=== PATIENT | male | born 1930 | race Caucasian/White ===

== ENCOUNTER → 2016-07-31 | Outpatient (CLI) | payer MEDICARE, BC | END | disposition home or self-care (01) | LOC: MW.CHUR 09:46 | PROVIDERS: ATTEND Urology | DX: R35.1 Nocturia (principal); Z85.46 Personal history of malignant neoplasm of prostate | CPT/HCPCS: 36415; 84153; G0463 ==

== ENCOUNTER 2017-12-08 06:43 | Day surgery (SDC) | payer MEDICARE, BC ==
[~2017-12-08 06:43] MED LIST: Lactated Ringers 1,000 ML IV SCH; Sodium Chloride 0.9% 10 ML Syringe FLUSH PRN; Sodium Chloride 0.9% 2.5 ML Syringe FLUSH PRN; ceFAZolin 1 GM in Premix Bag 1 BAG IV ONE
[2017-12-08] MEDS ORDERED: fentaNYL 100 MCG/2 ML SDV ONE (07:28)
[2017-12-08] MEDS ORDERED: Propofol 200 MG/20 ML SDV ONE (07:28)
[2017-12-08] MEDS ORDERED: Midazolam 1 MG/ML 2 ML SDV ONE (07:29)
[2017-12-08] MEDS ORDERED: Lidocaine 2% 5 ML SDV ONE (07:32)
[2017-12-08] MEDS ORDERED: Succinylcholine 200 MG/10 ML MDV ONE (07:32)
[2017-12-08] MEDS ORDERED: ePHEDrine 50 MG/ML SDV ONE (07:32)
--- NOTE | 2017-12-08 07:53 | PCM.PREANE ---
Preanesthetic Assessment - Procedure Proposed Procedure: TURBT - Anesthesia/Transfusion/Family Hx Anesthesia History: Prior Anesthesia Without Reaction Family History of Anesthesia Reaction: No Transfusion History: No Prior Transfusion(s) Intubation History: Unknown Additional History: Off plavix for one week - Review of Systems General: No Symptoms Pulmonary: No Symptoms Cardiovascular: No Symptoms Gastrointestinal: No Symptoms Neurological: Other (hx of stroke in past; still on anticoagulant) - Physical Assessment NPO Status Date: 12/07/17 NPO Status Time: 21:00 O2 Sat by Pulse Oximetry: 98 Respiratory Rate: 16 Vital Signs: Last Vital Signs Temp 97.3 F 12/08/17 07:22 Pulse 49 L 12/08/17 07:22 Resp 16 12/08/17 07:22 BP 139/73 12/08/17 07:22 Pulse Ox 98 12/08/17 07:22 Height: 6 ft Weight: 184 lb ASA Class: 3 Mental Status: Alert & Oriented x3 Airway Class: Mallampati = 3 Dentition: Reports: Normal Dentition Thyro-Mental Finger Breadths: 2 Mouth Opening Finger Breadths: 3 ROM/Head Extension: Limited/Partial Lungs: Clear to Auscultation, Normal Respiratory Effort Cardiovascular: Regular Rate, Regular Rhythm, No Murmurs - Allergies Allergies/Adverse Reactions: Allergies Allergy/AdvReac Type Severity Reaction Status Date / Time No Known Allergies Allergy Verified 12/03/17 10:02 - Blood Blood Available: No Product(s) Available: None - Anesthesia Plan Pre-Op Medication Ordered: None - Acknowledgements Anesthesia Type Planned: General Anesthesia (LMA) Pt an Appropriate Candidate for the Planned Anesthesia: Yes Alternatives and Risks of Anesthesia Discussed w Pt/Guardian: Yes Pt/Guardian Understands and Agrees with Anesthesia Plan: Yes Additional Comments: family at bedside; agreed to planned procedure and probable future surgical interventions PreAnesthesia Questionnaire HEENT History: Reports: Cataract, Hard of Hearing Other HEENT History: wears glasses, has bilateral hearing aides Cardiovascular History: Reports: High Cholesterol Genitourinary History: Reports: Prostate Disorder Neurological History: Reports: CVA Other Neuro History: stroke in 2002- still taking plavix Endocrine/Metabolic History: Reports: Hypothyroidism Hematologic History: Reports: Anticoagulation Therapy Oncologic (Cancer) History: Reports: Prostate Dermatologic History: Reports: Other (See Below) Other Dermatologic History: hx of shingles- still has pain down his arm- takes Gabapentin - Past Surgical History HEENT Surgical History: Reports: Cataract Surgery Male Surgical History: Reports: Prostatectomy, Other (See Below) Other Male Surgeries/Procedures: implanted artificial urinary sphincter Other Oncologic Surgeries/Procedures: Prostatectomy - SUBSTANCE USE Smoking Status *Q: Never Smoker Recreational Drug Use History: No - HOME MEDS Home Medications: Home Meds Clopidogrel [Plavix] 75 mg PO DAILY 10/29/17 [History] Levothyroxine Sodium [Levo-T] 50 mcg PO DAILY 10/29/17 [History] Oxybutynin Chloride 5 mg PO DAILY 10/29/17 [History] Simvastatin [Zocor] 40 mg PO DAILY 10/29/17 [History] Gabapentin [Neurontin] 600 mg PO QID 12/03/17 [History] - CURRENT (IN HOUSE) MEDS Current Meds: Current Medications Lactated Ringer's (Ringers, Lactated) 1,000 mls @ 100 mls/hr IV ASDIRECTED DAVID Last Admin: 12/08/17 07:10 Dose: 100 mls/hr Sodium Chloride (Saline Flush) 10 ml FLUSH ASDIRECTED PRN PRN Reason: Keep Vein Open Sodium Chloride (Saline Flush) 2.5 ml FLUSH ASDIRECTED PRN PRN Reason: Keep Vein Open Discontinued Medications Ephedrine Sulfate (Ephedrine Sulfate) Confirm Administered Dose 50 mg .ROUTE .STK-MED ONE Stop: 12/08/17 07:33 Fentanyl (Sublimaze) Confirm Administered Dose 100 mcg .ROUTE .STK-MED ONE Stop: 12/08/17 07:29 Cefazolin Sodium/Dextrose 1 gm (/ Premix) 50 mls @ 100 mls/hr IV ONCALL ONE Stop: 12/08/17 00:30 Lidocaine (Xylocaine-Mpf 2%) Confirm Administered Dose 5 ml .ROUTE .STK-MED ONE Stop: 12/08/17 07:33 Midazolam HCl (Versed 1 Mg/Ml) Confirm Administered Dose 2 mg .ROUTE .STK-MED ONE Stop: 12/08/17 07:30 Propofol (Diprivan 20 Ml) Confirm Administered Dose 200 mg .ROUTE .STK-MED ONE Stop: 12/08/17 07:29 Succinylcholine Chloride (Quelicin) Confirm Administered Dose 200 mg .ROUTE .STK -MED ONE Stop: 12/08/17 07:33
[2017-12-08] MEDS ORDERED: Glycopyrrolate 0.2 MG/ML SDV ONE (10:01)
--- NOTE | 2017-12-08 11:01 | PCM.POSTAN ---
POST ANESTHESIA ASSESSMENT - MENTAL STATUS Mental Status: Alert, Oriented - RESPIRATORY Respiratory Status: Respiratory Rate WNL - CARDIOVASCULAR CV Status: Pulse Rate WNL, Blood Pressure Stable - GASTROINTESTINAL GI Status: No Symptoms - PAIN Pain Score: 0 - POST OP HYDRATION Hydration Status: Adequate & Stable - OBSERVATIONS Free Text/Narrative:: no anesthesia problems
--- NOTE | 2017-12-08 11:52 | OR ---
SURGEON: Halle Kaur M.D. DATE OF PROCEDURE: 12/08/2017 PREOPERATIVE DIAGNOSIS: Multiple papillary bladder tumors, large, right wall and posterior wall. POSTOPERATIVE DIAGNOSIS: Multiple papillary bladder tumors, large, right wall and posterior wall. OPERATION: TURBT. DESCRIPTION OF THE PROCEDURE: The patient was given general anesthesia. He was in the dorsal lithotomy position, prepped and draped in sterile drapes. The artificial urinary sphincter was opened. The urethra was dilated using 20, all the way to 28- Salvadorean with [place] sounds. The 26 resectoscope was then placed in, the tumors were either resected or fulgurated. The specimen was submitted. The base of the tumor was biopsied separately with cold cup biopsy forceps. A 16-Salvadorean Joshi catheter was placed at the end. Estimated blood loss is minimal, under 50 mL. The patient tolerated the procedure well and was moved to recovery room in good condition. BELINDA / SADIE /[id number]
== END 2017-12-08 13:40 | disposition home or self-care (01) ==
LOC: MW.SDS 06:43
PROVIDERS: ATTEND Urology
DX: C67.4 Malignant neoplasm of posterior wall of bladder (principal); Z79.899 Other long term (current) drug therapy
CPT/HCPCS: 52240; 88305; 88307; 88331; J0330; J2250; J3010; J7120; J2704

== ENCOUNTER 2018-10-05 07:38 | Day surgery (SDC) | payer MEDICARE, BC ==
[~2018-10-05 07:38] MED LIST changes: +Sodium Chloride 0.9% 10 ML SDV IV PRN; -ceFAZolin 1 GM in Premix Bag 1 BAG IV ONE
--- NOTE | 2018-10-05 08:22 | PCM.PREANE ---
Preanesthetic Assessment - Anesthesia/Transfusion/Family Hx Anesthesia History: Prior Anesthesia Without Reaction Family History of Anesthesia Reaction: No Transfusion History: No Prior Transfusion(s) Intubation History: Unknown - Review of Systems General: No Symptoms Pulmonary: No Symptoms Cardiovascular: No Symptoms Gastrointestinal: No Symptoms Neurological: No Symptoms Other: Reports: None - Physical Assessment NPO Status Date: 10/04/18 NPO Status Time: 21:00 O2 Sat by Pulse Oximetry: 96 Respiratory Rate: 16 Vital Signs: Last Vital Signs Temp 97.2 F 10/05/18 08:02 Pulse 52 L 10/05/18 08:02 Resp 16 10/05/18 08:02 BP 128/70 10/05/18 08:02 Pulse Ox 96 10/05/18 08:02 Height: 6 ft Weight: 80.739 kg ASA Class: 3 Mental Status: Alert & Oriented x3 Airway Class: Mallampati = 2 Dentition: Reports: Missing Tooth/Teeth Thyro-Mental Finger Breadths: 2 ROM/Head Extension: Limited/Partial Lungs: Clear to Auscultation, Normal Respiratory Effort Cardiovascular: Regular Rate, Regular Rhythm (Distant sounds) - Allergies Allergies/Adverse Reactions: Allergies Allergy/AdvReac Type Severity Reaction Status Date / Time No Known Allergies Allergy Verified 10/01/18 13:45 - Acknowledgements Anesthesia Type Planned: General Anesthesia (Light) Pt an Appropriate Candidate for the Planned Anesthesia: Yes Alternatives and Risks of Anesthesia Discussed w Pt/Guardian: Yes Pt/Guardian Understands and Agrees with Anesthesia Plan: Yes PreAnesthesia Questionnaire HEENT History: Reports: Hard of Hearing Other HEENT History: wears glasses, has bilateral hearing aides Cardiovascular History: Reports: High Cholesterol, Other (See Below) Other Cardiovascular History: hx of bradycardia, states blood pressure runs low Respiratory History: Reports: None Gastrointestinal History: Reports: None Genitourinary History: Reports: Prostate Disorder, Urinary Incontinence Musculoskeletal History: Reports: None Neurological History: 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, mild residual memory issues), Neuropathy, 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 Endocrine/Metabolic History: Reports: Hypothyroidism Hematologic History: Reports: Other (See Below) Other Hematologic History: hx of chronic leukemia Immunologic History: Reports: None 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, Prostate Dermatologic History: Reports: Other (See Below) Other Dermatologic History: hx of shingles- still has pain down his arm- takes Gabapentin - Infectious Disease History Infectious Disease History: Reports: None - Past Surgical History Head Surgeries/Procedures: Reports: None Male Surgical History: Reports: TURBT-Transurethral Resection of Bladder Tumor, TURP-Transurethral Resection of Prostate, Other (See Below) Other Male Surgeries/Procedures: artificial urinary sphincter implanted Oncologic Surgical History: Reports: Other (See Below) Other Oncologic Surgeries/Procedures: prostatectomy, TURBT - SUBSTANCE USE Smoking Status *Q: Never Smoker Recreational Drug Use History: No - HOME MEDS Home Medications: Home Meds Levothyroxine Sodium [Levo-T] 50 mcg PO QAM 10/29/17 [History] Simvastatin [Zocor] 40 mg PO QAM 10/29/17 [History] Gabapentin [Neurontin] 600 mg PO TID 12/03/17 [History] Aspirin [Adult Low Dose Aspirin EC] 81 mg PO QAM 03/18/18 [History] - CURRENT (IN HOUSE) MEDS Current Meds: Current Medications Lactated Ringer's (Ringers, Lactated) 1,000 mls @ 100 mls/hr IV ASDIRECTED DAVID Sodium Chloride (Saline Flush) 10 ml FLUSH ASDIRECTED PRN PRN Reason: Keep Vein Open Sodium Chloride (Saline Flush) 2.5 ml FLUSH ASDIRECTED PRN PRN Reason: Keep Vein Open Sodium Chloride (Normal Saline) 10 ml IV ASDIRECTED PRN PRN Reason: IV Use
[2018-10-05] MEDS ORDERED: Iopamidol 408 MG/ML 50 ML SDV ONE (09:22)
[2018-10-05] MEDS ORDERED: Ondansetron 4 MG/2 ML SDV ONE (09:42)
[2018-10-05] MEDS ORDERED: Lidocaine 2% 5 ML SDV ONE (09:42)
[2018-10-05] MEDS ORDERED: Dexamethasone 4 MG/ML 5 ML MDV ONE (09:42)
[2018-10-05] MEDS ORDERED: Ketorolac 30 MG/ML SDV ONE (09:42)
[2018-10-05] MEDS ORDERED: Propofol 200 MG/20 ML SDV ONE (09:43)
[2018-10-05] MEDS ORDERED: fentaNYL 100 MCG/2 ML SDV ONE (09:43)
[2018-10-05] MEDS ORDERED: Midazolam 1 MG/ML 2 ML SDV ONE (09:45)
[2018-10-05] MEDS ORDERED: Morphine 4 MG/ML Syringe IVPUSH PRN (10:08)
[2018-10-05] MEDS ORDERED: hydrALAZINE 20 MG/ML SDV IVPUSH PRN ×2 (10:08)
[2018-10-05] MEDS ORDERED: fentaNYL 100 MCG/2 ML SDV IVPUSH PRN (10:08)
[2018-10-05] MEDS ORDERED: Naloxone 0.4 MG/ML Syringe IVPUSH PRN (10:08)
[2018-10-05] MEDS ORDERED: Meperidine PF 25 MG/ML Syringe IV PRN (10:08)
[2018-10-05] MEDS ORDERED: Ondansetron 4 MG/2 ML SDV IVPUSH PRN (10:08)
[2018-10-05] MEDS ORDERED: Meperidine PF 25 MG/ML Syringe IVPUSH PRN (10:08)
[2018-10-05] MEDS ORDERED: Acetaminophen/HYDROcodone 325-5 MG Tab PO PRN (10:08)
[2018-10-05] MEDS ORDERED: Labetalol 20 MG/4 ML Syringe IVPUSH PRN (10:08)
[2018-10-05] MEDS ORDERED: Albuterol 0.083% 2.5 MG/3 ML Neb Soln NEB PRN (10:08)
--- NOTE | 2018-10-05 11:03 | PCM.POSTAN ---
POST ANESTHESIA ASSESSMENT - MENTAL STATUS Mental Status: Alert, Oriented - VITAL SIGNS Pulse Rate: 72 SaO2: 95 Resp Rate: 12 Blood Pressure: 149/67 - RESPIRATORY Respiratory Status: Respiratory Rate WNL, Airway Patent, O2 Saturation Stable - CARDIOVASCULAR CV Status: Pulse Rate WNL, Blood Pressure Stable - GASTROINTESTINAL GI Status: No Symptoms - POST OP HYDRATION Hydration Status: Adequate & Stable
--- NOTE | 2018-10-05 11:29 | PCM48HPAN ---
Post Anesthesia Note - EVALUATION WITHIN 48HRS OF ANESTHETIC Vital Signs in Normal Range: Yes Patient Participated in Evaluation: Yes Respiratory Function Stable: Yes Airway Patent: Yes Cardiovascular Function Stable: Yes Hydration Status Stable: Yes Pain Control Satisfactory: Yes Nausea and Vomiting Control Satisfactory: Yes Mental Status Recovered: Yes Pulse Rate: 72 SaO2: 97 Resp Rate: 12 Blood Pressure: 149/67
[2018-10-05] MEDS ORDERED: Non-Formulary Medication 1 Each (Gabapentin 600 MG) PO SCH (14:00)
--- NOTE | 2018-10-05 16:11 | CR ---
EXAMINATION: Bilateral retrograde pyelogram HISTORY: Pyelogram COMPARISON: CT dated 11/03/2017 TECHNIQUE: Total of 10 fluoroscopic images provided FINDINGS/IMPRESSION: There is opacification of the renal collecting systems bilaterally with a small area of narrowing of the right ureter near the iliac crest without a filling defect. No significant proximal hydronephrosis or blunting of the calyces noted on the right. The left renal collecting system appears grossly normal.
--- NOTE | 2018-10-05 16:15 | OR ---
SURGEON: Halle Kaur M.D. DATE OF PROCEDURE: 10/05/2018 PREOPERATIVE DIAGNOSES: 1. History of bladder cancer. 2. Gross hematuria. POSTOPERATIVE DIAGNOSES: 1. History of bladder cancer. 2. Gross hematuria. OPERATION: Cystoscopy and bilateral retrograde pyelogram. FINDINGS: Negative retrograde pyelogram on both sides and negative renoscopy/ureteroscopy on the right side. DESCRIPTION OF PROCEDURE: The patient was given general anesthesia. He was placed in the dorsal lithotomy position, prepped and draped in sterile drapes. Cystourethroscopy was done. The bladder is normal. He has an artificial urinary sphincter that was opened to allow the 22-Hungarian cystoscope to go through. There is no prostate. Right retrograde pyelogram was initially a suspicious looking for a filling defect in the right mid ureter. Left retrograde study was normal in its entirety. The right ureter was dilated using UroMax II balloon dilator and a flexible ureteroscope was advanced over the guidewire all the way up into the kidney. The inside of the kidney was examined and showed no tumors. The ureter was examined on the way out and that showed no tumors. With that done, the procedure was terminated. The bladder was emptied and the patient was moved to recovery room in good condition. BELINDA / SADIE /[id number]
[2018-10-06] MEDS ORDERED: Levothyroxine 50 MCG Tab PO SCH (09:00)
[2018-10-06] MEDS ORDERED: Aspirin 81 MG Tab.EC PO SCH (09:00)
[2018-10-06] MEDS ORDERED: Simvastatin 40 MG Tab PO SCH (09:00)
== END 2018-10-05 11:50 | disposition home or self-care (01) ==
LOC: MW.SDS 07:38
PROVIDERS: ATTEND Urology
DX: R31.0 Gross hematuria (principal); R35.1 Nocturia; E03.9 Hypothyroidism, unspecified; E78.00 Pure hypercholesterolemia, unspecified; G62.9 Polyneuropathy, unspecified; Z90.79 Acquired absence of other genital organ(s); Z86.73 Personal history of transient ischemic attack (TIA), and cerebral infarction without residual deficits; Z85.51 Personal history of malignant neoplasm of bladder; Z79.82 Long term (current) use of aspirin; Z85.46 Personal history of malignant neoplasm of prostate; Z79.899 Other long term (current) drug therapy
CPT/HCPCS: 52351; 76000; C1769; J1100; J1885; J2001; J2250; J2405; J2704; J3010; J7120; Q9966

== ENCOUNTER 2018-10-05 18:43 | Emergency (ER) | payer MEDICARE, BC ==
--- NOTE | 2018-10-05 19:25 | EDM.PDOC ---
ED HPI GENERAL MEDICAL PROBLEM - General Chief Complaint: General Stated Complaint: SEEING DOUBLE Time Seen by Provider: 10/05/18 19:21 Source of Information: Reports: Patient, Family - History of Present Illness INITIAL COMMENTS - FREE TEXT/NARRATIVE: HISTORY AND PHYSICAL: History of present illness: [Patient presents for medical screening exam He was in today with Dr. Pineda for procedure under anesthesia, postoperatively at home he has had some double vision, which has resolved, he also has a TIA history and his daughter who is and os nurse practitioner over in the [place] area was concerned about a TIA however on arrival here symptoms are completely resolved he has no motor deficit and no double vision at current He is currently asymptomatic otherwise he had been off his aspirin for 4 days but restarted his aspirin today No fever nausea vomiting chills sweats no chest pain shortness breath headache dizziness palpitation no bowel or urine symptoms no motor weakness] Review of systems: As per history of present illness and below otherwise all systems reviewed and negative. Past medical history: As per history of present illness and as reviewed below otherwise noncontributory. Surgical history: As per history of present illness and as reviewed below otherwise noncontributory. Social history: No reported history of drug or alcohol abuse. Family history: As per history of present illness and as reviewed below otherwise noncontributory. Physical exam: HEENT: Atraumatic, normocephalic, pupils reactive, negative for conjunctival pallor or scleral icterus, mucous membranes moist, throat clear, neck supple, nontender, trachea midline. Lungs: Clear to auscultation, breath sounds equal bilaterally, chest nontender. Heart: S1S2, regular, negative for clicks, rubs, or JVD. Abdomen: Soft, nondistended, nontender. Negative for masses or hepatosplenomegaly. Negative for costovertebral tenderness. Pelvis: Stable nontender. Genitourinary: Deferred. Rectal: Deferred. Extremities: Atraumatic, negative for cords or calf pain. Neurovascular unremarkable. Neuro: Awake, alert, oriented. Cranial nerves II through XII unremarkable. Cerebellum unremarkable. Motor and sensory unremarkable throughout. Exam nonfocal. Diagnostics: [EKG was performed on arrival I did order CBC and BMP, patient refused as he has had a full lab panel through the [facility] system within the last 2 months Patient has refused further evaluation and workup he is also asymptomatic at current ] Therapeutics: [I did discuss these findings with family and the patient and that the patient is refusing further evaluation and the family is accepting of this and with no other deficit voices being satisfied with the physical exam ] Impression: Medical screening exam Chronic history of baseline Vision changes mentioned above likely secondary to anesthesia ] Definitive disposition and diagnosis as appropriate pending reevaluation and review of above. - Related Data Allergies Allergy/AdvReac Type Severity Reaction Status Date / Time No Known Allergies Allergy Verified 10/05/18 18:51 Home Meds: Home Meds Levothyroxine Sodium [Levo-T] 50 mcg PO QAM 10/29/17 [History] Simvastatin [Zocor] 40 mg PO QAM 10/29/17 [History] Gabapentin [Neurontin] 600 mg PO TID 12/03/17 [History] Aspirin [Adult Low Dose Aspirin EC] 81 mg PO QAM 03/18/18 [History] 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 Psychiatric History: Reports: None Endocrine/Metabolic History: Reports: Hypothyroidism Hematologic History: Reports: Other (See Below) Other Hematologic History: hx of chronic leukemia Immunologic History: Reports: None 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, Prostate Dermatologic History: Reports: Other (See Below) Other Dermatologic History: hx of shingles- still has pain down his arm- takes Gabapentin - Infectious Disease History Infectious Disease History: Reports: None - Past Surgical History Head Surgeries/Procedures: Reports: None HEENT Surgical History: Reports: None Cardiovascular Surgical History: Reports: None Respiratory Surgical History: Reports: None GI Surgical History: Reports: None Male Surgical History: Reports: TURBT-Transurethral Resection of Bladder Tumor, TURP-Transurethral Resection of Prostate, Other (See Below) Other Male Surgeries/Procedures: artificial urinary sphincter implanted Endocrine Surgical History: Reports: None Neurological Surgical History: Reports: None Musculoskeletal Surgical History: Reports: None Oncologic Surgical History: Reports: Other (See Below) Other Oncologic Surgeries/Procedures: prostatectomy, TURBT Dermatological Surgical History: Reports: None Social & Family History - Family History Family Medical History: Noncontributory - Tobacco Use Smoking Status *Q: Never Smoker Second Hand Smoke Exposure: No - Caffeine Use Caffeine Use: Reports: None - Recreational Drug Use Recreational Drug Use: No ED ROS GENERAL - Review of Systems Review Of Systems: See Below ED EXAM, GENERAL - Physical Exam Exam: See Below Course - Vital Signs Last Recorded V/S: Last Vital Signs Temp 96.6 F 10/05/18 18:47 Pulse 69 10/05/18 18:47 Resp 18 10/05/18 18:47 BP 121/41 L 10/05/18 18:47 Pulse Ox 97 10/05/18 18:47 - Orders/Labs/Meds Orders: Active Orders 24 hr Category Date Time Status EKG 12 Lead [EKG Documentation Completion] [RC] STAT Care 10/05/18 18:55 Active Orthostatic Vital Signs [RC] ASDIRECTED Care 10/05/18 19:05 Active BMP [BASIC METABOLIC PANEL,BMP] [CHEM] Stat Lab 10/05/18 19:04 Ordered CBC WITH AUTO DIFF [HEME] Stat Lab 10/05/18 19:04 Ordered Departure - Departure Time of Disposition: 19:24 Disposition: Home, Self-Care 01 Condition: Good Clinical Impression: Encounter for medical screening examination - Discharge Information Referrals: Pj Sanders MD [Primary Care Provider] - Additional Instructions: The following information is given to patients seen in the emergency department who are being discharged to home. This information is to outline your options for follow-up care. We provide all patients seen in our emergency department with a follow-up referral. The need for follow-up, as well as the timing and circumstances, are variable depending upon the specifics of your emergency department visit. If you don't have a primary care physician on staff, we will provide you with a referral. We always advise you to contact your personal physician following an emergency department visit to inform them of the circumstance of the visit and for follow-up with them and/or the need for any referrals to a consulting specialist. The emergency department will also refer you to a specialist when appropriate. This referral assures that you have the opportunity for follow-up care with a specialist. All of these measure are taken in an effort to provide you with optimal care, which includes your follow-up. Under all circumstances we always encourage you to contact your private physician who remains a resource for coordinating your care. When calling for follow-up care, please make the office aware that this follow-up is from your recent emergency room visit. If for any reason you are refused follow-up, please contact the [facility] emergency department at and asked to speak to the emergency department charge nurse. - My Orders Last 24 Hours: My Active Orders 10/05/18 18:55 EKG 12 Lead [EKG Documentation Completion] [RC] STAT 10/05/18 19:04 BMP [BASIC METABOLIC PANEL,BMP] [CHEM] Stat CBC WITH AUTO DIFF [HEME] Stat 10/05/18 19:05 Orthostatic Vital Signs [RC] ASDIRECTED - Assessment/Plan Last 24 Hours: My Active Orders 10/05/18 18:55 EKG 12 Lead [EKG Documentation Completion] [RC] STAT 10/05/18 19:04 BMP [BASIC METABOLIC PANEL,BMP] [CHEM] Stat CBC WITH AUTO DIFF [HEME] Stat 10/05/18 19:05 Orthostatic Vital Signs [RC] ASDIRECTED
== END 2018-10-05 19:35 | disposition home or self-care (01) ==
LOC: MW.ED 18:43
DX: Z13.9 Encounter for screening, unspecified (principal)
CPT/HCPCS: 93005; 99284-25

== ENCOUNTER 2020-10-15 06:26 | Emergency (ER) | payer MEDICARE, BC ==
[2020-10-15] MEDS ORDERED: Sodium Chloride 0.9% 2.5 ML Syringe FLUSH PRN (06:37)
[2020-10-15] MEDS ORDERED: Sodium Chloride 0.9% 10 ML Syringe FLUSH PRN (06:37)
--- NOTE | 2020-10-15 06:41 | EDM.PDOC ---
<Santhosh Saldana - Last Filed: 10/15/20 08:13> ED HPI GENERAL MEDICAL PROBLEM - General Chief Complaint: Cardiovascular Problem Stated Complaint: HEART PROBLEM Time Seen by Provider: 10/15/20 06:40 - Related Data Allergies Allergy/AdvReac Type Severity Reaction Status Date / Time No Known Allergies Allergy Verified 10/15/20 06:39 Home Meds: Home Meds Levothyroxine Sodium [Levo-T] 50 mcg PO QAM 10/29/17 [History] Simvastatin [Zocor] 40 mg PO QAM 10/29/17 [History] Gabapentin [Neurontin] 400 mg PO Q6HR 12/03/17 [History] DULoxetine [Cymbalta] 20 mg PO DAILY 10/15/20 [History] Course - Re-Assessments/Exams Free Text/Narrative Re-Assessment/Exam: 10/15/20 08:13 Patient was signed out to me from previous attending. Patient has some palpitations that has been resolved since being here patient had no more symptoms and has no more chest pain. Patient tropes review electrolytes reviewed. Patient EKG shows a bradycardic with a prolonged VT the patient is not symptomatic not lightheaded not dizzy. Patient had a Zio patch placed that he will wear for the next 7 days. Patient daughter at the bedside has been given strict return precautions if patient has any more of the palpitations or become symptomatic please return to the ED. Patient be discharged home. Departure - Departure Time of Disposition: 08:15 Disposition: Home, Self-Care 01 Condition: Good Clinical Impression: Palpitations Instructions: Palpitations, [id number] Referrals: Pj Sanders MD [Primary Care Provider] - Forms: ED Department Discharge Additional Instructions: The following information is given to patients seen in the emergency department who are being discharged to home. This information is to outline your options for follow-up care. We provide all patients seen in our emergency department with a follow-up referral. The need for follow-up, as well as the timing and circumstances, are variable depending upon the specifics of your emergency department visit. If you don't have a primary care physician on staff, we will provide you with a referral. We always advise you to contact your personal physician following an emergency department visit to inform them of the circumstance of the visit and for follow-up with them and/or the need for any referrals to a consulting specialist. The emergency department will also refer you to a specialist when appropriate. This referral assures that you have the opportunity for follow-up care with a specialist. All of these measure are taken in an effort to provide you with optimal care, which includes your follow-up. Under all circumstances we always encourage you to contact your private physician who remains a resource for coordinating your care. When calling for follow-up care, please make the office aware that this follow-up is from your recent emergency room visit. If for any reason you are refused follow-up, please contact the [facility] Emergency Department at and asked to speak to the emergency department charge nurse. Please follow up with your primary care physician. If you do not have a primary care physician, see below: [facility] at [address] [address] You are seen today at the you has some palpitations at home. We reviewed labs EKG and x-ray did not show any concerning findings. Your EKG did have a first- degree heart block which could be normal for you but you are not symptomatic from it. We will send you home on a Zio patch that she will wear for the next 7 days and return after to have it read. In the meantime he has any increasing symptoms such as dizziness lightheadedness or chest pain please return to the ED immediately. <Guero Snow - Last Filed: 10/16/20 06:48> ED HPI GENERAL MEDICAL PROBLEM - History of Present Illness INITIAL COMMENTS - FREE TEXT/NARRATIVE: History of present illness: [] Patient felt like it 4 AM he awakened with her heart beating fast and not sure if it was irregular but certainly bothering him because of the abnormal heartbeat. He was short of breath. He had dyspnea on exertion. He had diaphoresis. He had nausea. He called his daughter at 6 AM and told her according to her that he needed to go to the hospital because of this. At this time the palpitations have subsided and he feels more normal. He is under care for skin cancer and has excoriations about his forehead and his nose. He is on thyroid replacement per his history. Review of systems: As per history of present illness and below otherwise all systems reviewed and negative. Past medical history: As per history of present illness and as reviewed below otherwise noncontributory. Surgical history: As per history of present illness and as reviewed below otherwise noncontributory. Social history: No reported history of drug or alcohol abuse. Family history: As per history of present illness and as reviewed below otherwise noncontributory. Physical exam: Constitutional - well developed, well-nourished and in no acute distress HEENT -multiple small areas of lesions that apparently have been biopsied or removed including some deep abrasion on the anterior nasal surface. Normocephalic, no evidence of trauma - external nose and mouth normal - no mass in neck and no JVD - mucosae moist EYES - full EOM, PERRL, no icterus - no evidence of inflammation, injection, or drainage Respiratory - no respiratory distress, equal bilateral expansion, lungs clear to auscultation and no abnormal lung sounds Cardiovascular - Regular Rhythm with S1 and S2 appreciated and no murmur, gallop or rub. GI - abdomen soft without distension or organomegaly - normal bowel sounds - no guard or rebound Musculoskeletal no gross deformity of long bones or joints - no tenderness, swelling or edema Neurologic - Alert and oriented times four - CN II-XII grossly intact - motor sensory and coordination symmetrically normal Psychiatric - appropriate mood and affect with normal thought content Hematologic - No petechiae or purpura - mucosa appropriate color and sclera not pale - normal nail bed color and refill Integument - no rash or evidence of trauma - normal turgor Diagnostics: [] Therapeutics: [] Impression: [] Plan: [] Definitive disposition and diagnosis as appropriate pending reevaluation and review of above. 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 Psychiatric History: Reports: None Endocrine/Metabolic History: Reports: Hypothyroidism Hematologic History: Reports: Other (See Below) Other Hematologic History: hx of chronic leukemia Immunologic History: Reports: None 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, Prostate Dermatologic History: Reports: Other (See Below) Other Dermatologic History: hx of shingles- still has pain down his arm- takes Gabapentin - Infectious Disease History Infectious Disease History: Reports: None - Past Surgical History Head Surgeries/Procedures: Reports: None HEENT Surgical History: Reports: None Cardiovascular Surgical History: Reports: None Respiratory Surgical History: Reports: None GI Surgical History: Reports: None Male Surgical History: Reports: TURBT-Transurethral Resection of Bladder Tumor, TURP-Transurethral Resection of Prostate, Other (See Below) Other Male Surgeries/Procedures: artificial urinary sphincter implanted Endocrine Surgical History: Reports: None Neurological Surgical History: Reports: None Musculoskeletal Surgical History: Reports: None Oncologic Surgical History: Reports: Other (See Below) Other Oncologic Surgeries/Procedures: prostatectomy, TURBT Dermatological Surgical History: Reports: None Social & Family History - Family History Family Medical History: No Pertinent Family History - Caffeine Use Caffeine Use: Reports: None ED ROS GENERAL - Review of Systems Review Of Systems: Comprehensive ROS is negative, except as noted in HPI. ED EXAM, GENERAL - Physical Exam Exam: See Below Free Text/Narrative:: My physical exam is in the HPI #1 Interpretation EKG Interpretation Comments: EKG done at 6:29 AM first-degree AV block with a bradycardia. Heart rate 52. VT interval 263. QT duration 415. [place] XVII. Normal QRS ST and T. Compared to 10/05/2018 VT is prolonged and slightly longer than it had been in the past. Impression no acute injury noted. Course - Vital Signs Last Recorded V/S: Last Vital Signs Temp 36.3 C 10/15/20 06:30 Pulse 48 L 10/15/20 08:30 Resp 17 10/15/20 08:30 BP 134/63 10/15/20 08:30 Pulse Ox 97 10/15/20 08:30 - Orders/Labs/Meds Orders: Active Orders 24 hr Category Date Time Status Saline Lock Insert [OM.PC] Stat Oth 10/15/20 06:37 Ordered Labs: Laboratory Tests 10/15/20 10/15/20 10/15/20 Range/Units 06:35 06:35 06:35 WBC 125.87 H (4.0-11.0) K/uL RBC 3.95 L (4.50-5.90) M/uL Hgb 13.3 (13.0-17.0) g/dL Hct 41.8 (38.0-50.0) % MCV 105.8 H (80.0-98.0) fL MCH 33.7 H (27.0-32.0) pg MCHC 31.8 (31.0-37.0) g/dL RDW Std Deviation 52.8 (28.0-62.0) fl RDW Coeff of Jarod 14 (11.0-15.0) % Plt Count 109 L (150-400) K/uL MPV 11.50 (7.40-12.00) fL Add Manual Diff YES Neutrophils % (Manual) 1 L (48.0-80.0) % Lymphocytes % (Manual) 98 H (16.0-40.0) % Eosinophils % (Manual) 1 (0.0-7.0) % Nucleated RBC % 0.0 /100WBC Absolute Seg Neuts 1.3 L (1.4-5.7) Lymphocytes # (Manual) 123.4 H (0.6-2.4) Eosinophils # (Manual) 1.3 H (0.0-0.7) Nucleated RBCs # 0 K/uL Sodium 141 (136-148) mmol/L Potassium 4.9 (3.5-5.1) mmol/L Chloride 107 (98-107) mmol/L Carbon Dioxide 26.5 (21.0-32.0) mmol/L BUN 24 H (7.0-18.0) mg/dL Creatinine 1.2 (0.8-1.3) mg/dL Est Cr Clr Drug Dosing 44.45 mL/min Estimated GFR (MDRD) 57.0 ml/min Glucose 110 H (74-106) mg/dL Calcium 8.3 L (8.5-10.1) mg/dL Magnesium 2.0 (1.8-2.4) mg/dL Total Bilirubin 0.3 (0.2-1.0) mg/dL AST 24 (15-37) IU/L ALT 26 (14-63) IU/L Alkaline Phosphatase 88 (46-116) U/L Troponin I < 0.050 (0.000-0.056) ng/mL Total Protein 5.9 L (6.4-8.2) g/dL Albumin 3.3 L (3.4-5.0) g/dL Globulin 2.6 (2.6-4.0) g/dL Albumin/Globulin Ratio 1.3 (0.9-1.6) Free T4 1.11 (0.76-1.46) ng/dL TSH 3rd Generation 10.18 H (0.36-3.74) uIU/mL Meds: Medications Discontinued Medications Generic Name Dose Route Start Last Admin Trade Name Freq PRN Reason Stop Dose Admin Sodium Chloride 10 ml 10/15/20 06:37 Sodium Chloride 0.9% 10 Ml Syringe FLUSH ASDIRECTED PRN Keep Vein Open Sodium Chloride 2.5 ml 10/15/20 06:37 Sodium Chloride 0.9% 2.5 Ml Syringe FLUSH ASDIRECTED PRN Keep Vein Open Departure - Departure Condition: Good - My Orders Last 24 Hours: My Active Orders 10/15/20 06:37 Saline Lock Insert [OM.PC] Stat - Assessment/Plan Last 24 Hours: My Active Orders 10/15/20 06:37 Saline Lock Insert [OM.PC] Stat
--- NOTE | 2020-10-15 07:05 | CR ---
Indication: Palpitations and dyspnea Comparison: None available. Technique: Single AP view chest Findings: There is hyperinflation and chronic interstitial change. There is no focal consolidation, effusion, or pneumothorax. The cardiac silhouette is mildly prominent. The bony thorax is grossly intact. Impression: Hyperinflation and chronic interstitial change without evidence of dense consolidation. Dictated by Tien Huddleston MD @ 10/15/2020 7:03:[address] Tien Huddleston @ Oct 15 2020 7:03AM
[2020-10-15 07:16] LABS: BLOOD UREA NITROGEN,BUN 24 mg/dL (7.0-18.0); CARBON DIOXIDE,CO2 26.5 mmol/L (21.0-32.0); CHLORIDE,CL 107 mmol/L (98-107); GLUCOSE RANDOM 110 mg/dL (74-106); POTASSIUM,K 4.9 mmol/L (3.5-5.1); SODIUM,NA 141 mmol/L (136-148)
== END 2020-10-15 08:30 | disposition home or self-care (01) ==
LOC: MW.ED 06:26
DX: R00.2 Palpitations (principal); E78.00 Pure hypercholesterolemia, unspecified; E03.9 Hypothyroidism, unspecified; R00.1 Bradycardia, unspecified; Z79.899 Other long term (current) drug therapy
CPT/HCPCS: 71045; 71045-26; 80053; 83735; 84439; 84443; 84484; 85025; 93010; 93246; 99284; 99285-25

== ENCOUNTER 2021-01-30 11:39 | Emergency (ER) | payer MEDICARE, BC ==
[2021-01-30] MEDS ORDERED: Diphtheria,Pertussis(Acell),Tetanus Vaccine 0.5 ML Syringe IM ONE (11:59)
--- NOTE | 2021-01-30 12:13 | EDM.PDOC ---
ED HPI GENERAL MEDICAL PROBLEM - General Chief Complaint: Upper Extremity Injury/Pain Stated Complaint: FELL AND HIT HIS HEAD Time Seen by Provider: 01/30/21 11:52 Source of Information: Reports: Patient History Limitations: Reports: No Limitations - History of Present Illness INITIAL COMMENTS - FREE TEXT/NARRATIVE: Patient is an 89-year-old male presents today for fall from standing. Patient was at the gym working out and completed his workout was doing to go home and was walking looking for his car when he tripped over a curb landing on his right side. He has some bruising or bleeding to the right wrist and some bruising to the right side of his face. Denies any LOC neck pain back pain or any other extremity pain. Patient currently has no pain in the wrist or face. Does not take any medication for pain does not radiate anywhere. - Related Data Allergies Allergy/AdvReac Type Severity Reaction Status Date / Time No Known Allergies Allergy Verified 01/30/21 11:50 Home Meds: Home Meds Levothyroxine Sodium [Levo-T] 50 mcg PO QAM 10/29/17 [History] Simvastatin [Zocor] 40 mg PO QAM 10/29/17 [History] Gabapentin [Neurontin] 400 mg PO Q6HR 12/03/17 [History] DULoxetine [Cymbalta] 20 mg PO DAILY 10/15/20 [History] Past Medical History HEENT History: Reports: Hard of Hearing Other HEENT History: wears glasses, has bilateral hearing aides Cardiovascular History: Reports: High Cholesterol Other Cardiovascular History: hx of bradycardia, states blood pressure runs low Respiratory History: Reports: None Gastrointestinal History: Reports: None Genitourinary History: Reports: Prostate Disorder, Urinary Incontinence Musculoskeletal History: Reports: None Neurological History: Reports: CVA, Neuropathy, Peripheral, TIA Other 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 Psychiatric History: Reports: None Endocrine/Metabolic History: Reports: Hypothyroidism Insulin Pump Model and Patient Access: None Hematologic History: Reports: Anemia Other Hematologic History: hx of chronic leukemia Immunologic History: Reports: None 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, Leukemia, Prostate Dermatologic History: Reports: None Other Dermatologic History: hx of shingles- still has pain down his arm- takes Gabapentin - Infectious Disease History Infectious Disease History: Reports: Chicken Pox, Shingles - Past Surgical History Head Surgeries/Procedures: Reports: None HEENT Surgical History: Reports: None Cardiovascular Surgical History: Reports: None Respiratory Surgical History: Reports: None GI Surgical History: Reports: None Male Surgical History: Reports: TURBT-Transurethral Resection of Bladder Tumor, TURP-Transurethral Resection of Prostate, Other (See Below) Other Male Surgeries/Procedures: artificial urinary sphincter implanted Endocrine Surgical History: Reports: None Neurological Surgical History: Reports: None Musculoskeletal Surgical History: Reports: None Oncologic Surgical History: Reports: Other (See Below) Other Oncologic Surgeries/Procedures: prostatectomy, TURBT Dermatological Surgical History: Reports: None Social & Family History - Family History Family Medical History: No Pertinent Family History - Tobacco Use Tobacco Use Status *Q: Never Tobacco User Second Hand Smoke Exposure: No - Caffeine Use Caffeine Use: Reports: None - Recreational Drug Use Recreational Drug Use: No Review of Systems - Review of Systems Review Of Systems: See Below Constitutional: Reports: No Symptoms Eyes: Reports: No Symptoms Ears: Reports: No Symptoms Nose: Reports: No Symptoms Mouth/Throat: Reports: No Symptoms Respiratory: Reports: No Symptoms Cardiovascular: Reports: No Symptoms GI/Abdominal: Reports: No Symptoms Genitourinary: Reports: No Symptoms Musculoskeletal: Reports: No Symptoms, Hand Pain Skin: Reports: No Symptoms Neurological: Reports: No Symptoms Psychiatric: Reports: No Symptoms ED EXAM, GENERAL - Physical Exam Exam: See Below Exam Limited By: No Limitations General Appearance: Alert, WD/WN, No Apparent Distress Eye Exam: Bilateral Eye: EOMI, PERRL Head: Other (Abrasions to the right side of his face) Respiratory/Chest: No Respiratory Distress, Lungs Clear, Normal Breath Sounds Cardiovascular: Normal Peripheral Pulses, Regular Rate, Rhythm Peripheral Pulses: 2+: Radial (L), Radial (R) GI/Abdominal: Normal Bowel Sounds, Soft, Non-Tender Back Exam: Normal Inspection, Full Range of Motion Extremities: Normal Range of Motion, Non-Tender, Other (Abrasions to the dorsal side of right hand and wrist) Neurological: Alert, Oriented, CN II-XII Intact, Normal Cognition, Normal Gait Skin Exam: Other (Abrasions to right side of face and right wrist) Course - Vital Signs Last Recorded V/S: Last Vital Signs Temp 96.4 F L 01/30/21 11:52 Pulse 64 01/30/21 11:52 Resp 18 01/30/21 11:52 BP 130/50 L 01/30/21 11:52 Pulse Ox 96 01/30/21 11:52 - Orders/Labs/Meds Orders: Active Orders 24 hr Category Date Time Status Vaccines to be Administered [RC] PER UNIT ROUTINE Care 01/30/21 11:59 Active Meds: Medications Discontinued Medications Generic Name Dose Route Start Last Admin Trade Name Roosevelt PRN Reason Stop Dose Admin Diphtheria/Tetanus/Acell Pertussis 0.5 ml 01/30/21 11:59 01/30/21 13:00 Diphtheria,Pertussis(Acell),Tetanus Vaccine 0.5 Ml Syringe IM 01/30/21 12:00 0.5 ml .ONCE ONE Administration - Re-Assessments/Exams Free Text/Narrative Re-Assessment/Exam: 01/30/21 13:[address] is reviewed no acute findings. She does have some enlarged lymph node was you made aware of that he should follow-up as outpatient. Patient will be discharged home. Departure - Departure Time of Disposition: 13:47 Disposition: Home, Self-Care 01 Condition: Good Clinical Impression: Fall, Abrasion of face, Abrasion of arm, right - Discharge Information *PRESCRIPTION DRUG MONITORING PROGRAM REVIEWED*: Not Applicable *COPY OF PRESCRIPTION DRUG MONITORING REPORT IN PATIENT WILLIAN: Not Applicable Instructions: Abrasion Referrals: Pj Sanders MD [Primary Care Provider] - Forms: ED Department Discharge Additional Instructions: The following information is given to patients seen in the emergency department who are being discharged to home. This information is to outline your options for follow-up care. We provide all patients seen in our emergency department with a follow-up referral. The need for follow-up, as well as the timing and circumstances, are variable depending upon the specifics of your emergency department visit. If you don't have a primary care physician on staff, we will provide you with a referral. We always advise you to contact your personal physician following an emergency department visit to inform them of the circumstance of the visit and for follow-up with them and/or the need for any referrals to a consulting specialist. The emergency department will also refer you to a specialist when appropriate. This referral assures that you have the opportunity for follow-up care with a specialist. All of these measure are taken in an effort to provide you with optimal care, which includes your follow-up. Under all circumstances we always encourage you to contact your private physician who remains a resource for coordinating your care. When calling for follow-up care, please make the office aware that this follow-up is from your recent emergency room visit. If for any reason you are refused follow-up, please contact the [facility] Emergency Department at and asked to speak to the emergency department charge nurse. Please follow up with your primary care physician. If you do not have a primary care physician, see below: [facility] [address] [place] [id number] My [facility] [address] [place] [address] You were seen today after you took a fall from standing. We did CAT scans of your head face and your extremities. There are no fracture seen. You do have s ome enlarged lymph node that was seen in your facial sinuses that could be reactive but also we want you to follow-up with your primary care physician and maybe get a CAT scan in 6 to 12 months to make sure these are resolved. If you have any other concerning signs or symptoms please return to ED or follow-up to primary care physician. Sepsis Event Note (ED) - Evaluation Sepsis Screening Result: No Definite Risk - Focused Exam Vital Signs: Vital Signs Temp Pulse Resp BP Pulse Ox 01/30/21 11:52 96.4 F L 64 18 130/50 L 96 - My Orders Last 24 Hours: My Active Orders 01/30/21 11:59 Vaccines to be Administered [RC] PER UNIT ROUTINE - Assessment/Plan Last 24 Hours: My Active Orders 01/30/21 11:59 Vaccines to be Administered [RC] PER UNIT ROUTINE Plan: Patient is a 89-year-old male who presents today for fall from standing patient has abrasions to the right side of his face and right wrist. Will obtain x-ray CT scan and reassess.
--- NOTE | 2021-01-30 13:20 | CR ---
INDICATION: Fall from standing. Right-sided pain. COMPARISON: Chest radiograph 10/15/2020. TECHNIQUE: PA chest and right ribs, 4 images. FINDINGS: No focal consolidation, pleural effusion, or pneumothorax. Normal heart size and pulmonary vascularity. 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 No displaced rib fracture identified. IMPRESSION: 1. No acute cardiopulmonary findings. 2. No displaced rib fracture identified. Dictated by Myrtle Peralta MD @ 01/30/2021 1:19:[address] Myrtle Peralta @ Jan 30 2021 1:19PM
--- NOTE | 2021-01-30 13:22 | CR ---
Indication: Fall. Technique: Right hand 3 views. Comparison: None. Findings: No acute fracture or dislocation. Degenerative changes of the 1st CMC joint, 1st MCP joint, and interphalangeal joints. Soft tissues are unremarkable. Impression: No acute findings. Dictated by Myrtle Peralta MD @ 01/30/2021 1:21:[address] Myrtle Peralta @ Jan 30 2021 1:21PM
--- NOTE | 2021-01-30 13:25 | CR ---
Indication: Fall. Technique: Right wrist 3 view. Comparison: None. Findings: No acute fracture or dislocation. Degenerative changes of the 1st CMC joint and 1st MCP joint. Soft tissues are unremarkable. Impression: No acute findings. Dictated by Myrtle Peralta MD @ 01/30/2021 1:23:[address] Myrtle Peralta @ Jan 30 2021 1:23PM
--- NOTE | 2021-01-30 13:33 | CT ---
INDICATION: Fall, history of stroke. COMPARISON: CT head 04/11/2007. TECHNIQUE: CT of the head without IV contrast. Coronal and sagittal reconstructions are provided. FINDINGS: No intracranial hemorrhage, mass effect, or evidence of acute infarct. No midline shift. No abnormal extra-axial fluid collections. Mild generalized cerebral and cerebellar volume loss. Normal caliber ventricular system. Moderate chronic small vessel ischemic disease. Old infarct with encephalomalacia in the left parieto-occipital lobes. Orbits and extraocular muscles are symmetric. The paranasal sinuses and mastoid air cells are clear. No acute fracture. Soft tissue swelling in the right lateral periorbital region with associated foci of soft tissue gas suggesting laceration. Multiple prominent cervical and periparotid lymph nodes bilaterally may be reactive. IMPRESSION: : 1. No acute intracranial findings. 2. Moderate chronic small vessel ischemic disease and old infarct in the left parieto-occipital lobes. 3. Soft tissue swelling in the right lateral periorbital region with associated foci of gas suggesting laceration. Please note that all CT scans at this facility use dose modulation, iterative reconstruction, and/or weight-based dosing when appropriate to reduce radiation dose to as low as reasonably achievable. Dictated by Myrtle Peralta MD @ 01/30/2021 1:31:[address] Myrtle Peralta @ Jan 30 2021 1:31PM
--- NOTE | 2021-01-30 13:41 | CT ---
INDICATION: Fall. COMPARISON: CT head 04/11/2007. TECHNIQUE: CT of the facial bones without IV contrast. Coronal and sagittal reconstructions. FINDINGS: No evidence of a fracture within the facial bones. Mild mucosal thickening in the inferior right maxillary sinus. The paranasal sinuses and mastoid air cells are otherwise clear. No air-fluid levels. No bony hyperostosis or areas of bone destruction. The ostiomeatal complexes are patent bilaterally. The nasal septum is midline. The mandible is intact and the temporomandibular joints are anatomically aligned. Periapical lucencies about a few left maxillary teeth. The upper cervical spine is negative. Soft tissue swelling in the right lateral periorbital region with associated foci of gas suggesting laceration. Orbits and extraocular muscles are symmetric. No retro-orbital hematoma or fat stranding. 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 Visualized intracranial contents are otherwise unremarkable. Multiple prominent and mildly enlarged cervical, periparotid, and submandibular lymph nodes. IMPRESSION: 1. No acute fracture identified. 2. Soft tissue swelling in the right lateral periorbital region with associated foci of gas suggesting laceration. 3. Multiple prominent and mildly enlarged cervical, periparotid, and submandibular lymph nodes could be reactive, metastatic, or lymphoproliferative in nature. Please note that all CT scans at this facility use dose modulation, iterative reconstruction, and/or weight-based dosing when appropriate to reduce radiation dose to as low as reasonably achievable. Dictated by Myrtle Peralta MD @ 01/30/2021 1:39:[address] Myrtle Peralta @ Jan 30 2021 1:39PM
== END 2021-01-30 13:58 | disposition home or self-care (01) ==
LOC: MW.ED 11:39
DX: S00.81XA Abrasion of other part of head, initial encounter (principal); S60.811A Abrasion of right wrist, initial encounter; E78.00 Pure hypercholesterolemia, unspecified; Z23 Encounter for immunization; Z86.718 Personal history of other venous thrombosis and embolism; Z79.899 Other long term (current) drug therapy; W01.0XXA Fall on same level from slipping, tripping and stumbling without subsequent striking against object, initial encounter; Y92.009 Unspecified place in unspecified non-institutional (private) residence as the place of occurrence of the external cause; Y93.43 Activity, gymnastics
CPT/HCPCS: 70450; 70450-26; 70486; 70486-26; 71101-26-RT; 71101-RT; 73110-26-RT; 73110-RT; 73130-26-RT; 73130-RT; 90471; 90715; 99284-25

== ENCOUNTER 2021-04-29 18:32 | Emergency (ER) | payer MEDICARE, BC ==
[2021-04-29] MEDS ORDERED: Lactated Ringers 1,000 ML IV ONE (18:51)
[2021-04-29] MEDS ORDERED: Lactated Ringers 1,000 ML IV SCH ×2 (19:00)
[2021-04-29] MEDS ORDERED: Cefepime 2 GM in Premix Bag 1 BAG IV ONE (19:08)
[2021-04-29 19:25] LABS: BLOOD UREA NITROGEN,BUN 30 mg/dL (7.0-18.0); CARBON DIOXIDE,CO2 24.7 mmol/L (21.0-32.0); CHLORIDE,CL 101 mmol/L (98-107); GLUCOSE RANDOM 132 mg/dL (74-106); POTASSIUM,K 5.5 mmol/L (3.5-5.1); SODIUM,NA 134 mmol/L (136-148)
[2021-04-29] MEDS: Lactated Ringers 1,000 ML IV SCH ×2 (19:25→20:16)
--- NOTE | 2021-04-29 19:47 | EDM.PDOC ---
<Lance Braun - Last Filed: 04/29/21 19:46> ED HPI GENERAL MEDICAL PROBLEM - General Chief Complaint: General Stated Complaint: EMS/FALL Time Seen by Provider: 04/29/21 19:20 - History of Present Illness INITIAL COMMENTS - FREE TEXT/NARRATIVE: CHIEF COMPLAINT(S): Cough HISTORY OF PRESENT ILLNESS: This is a 89-year-old man with a a past medical history of CLL and abnormal arrhythmia with pacemaker who presents to the emergency department as a medical resuscitation via EMS with a chief complaint of cough. Per EMS: They were called to the patient's house as family barrier called for a wellness check. Patient apparently had accidentally fallen in his garage secondary to a light coming off however on arrival the patient's blood pressure was low so they decided to bring him to the hospital. The patient states that for the last couple of days he has been experiencing a productive cough of yellowish sputum. He states that he does not have any shortness of breath but did go to get checked for Covid this morning. He states that he is vaccinated. He denies any chest pain, abdominal pain, nausea or vomiting. He states that he when he fell he purely tripped and did not hit his head or have any loss of consciousness. He denies any use of oral anticoagulation. He denies any other symptoms such as fever, chills, runny nose or congestion. REVIEW OF SYSTEMS: Constitutional: Denies fever, chills. Eyes: Denies eye pain Ears, Nose, Mouth, & Throat: Denies earache Cardiovascular: Denies chest pain Respiratory: Positive for productive cough. Denies shortness of breath Gastrointestinal: Denies Nausea, vomiting, diarrhea, hematochezia. Genitourinary: Denies hematuria Skin:Denies a rash Neurological: Denies blurred vision Psychiatric: Denies depression PAST MEDICAL HISTORY: As per history of present illness and as reviewed below otherwise noncontributory. SURGICAL HISTORY: As per history of present illness and as reviewed below otherwise noncontributory. SOCIAL HISTORY: As per history of present illness and as reviewed below otherwise noncontributory. FAMILY HISTORY: As per history of present illness and as reviewed below otherwise noncontributory. EXAMINATION OF ORGAN SYSTEMS/BODY AREAS: VITALS: Blood pressure 95/47, heart rate 73, respiratory rate 20 with an oxygen saturation of 93% on room air. Temperature 100.6.. GENERAL: The patient is well-nourished, well-developed, in no acute distress. HEAD: Normocephalic, atraumatic. EYES: EOMs intact. PERRL. ENT. External ears WNL. Nares patent. Oropharynx is clear with no erythema or exudate. No uvular or tongue swelling. NECK: Supple, no masses. Trachea is midline. LUNGS: No tachypnea or intercostal retractions. Clear to auscultation bilaterally, no wheezing, no rales, no stridor, no rhonchi. CARDIOVASCULAR: Regular rate and rhythm with S1-S2. No murmur, rubs or gallops. No edema. No JVD. ABDOMEN: Soft, non-distended, non-tender. Bowel sounds present in all 4 quadrants. No rebound tenderness, guarding, or peritoneal signs. MUSCULOSKELETAL: No deformity. Patient is moving all 4 limbs spontaneously. NEUROLOGICAL: Alert and oriented x 3. No focal neurological deficits noted. SKIN: No rashes, or pallor. No signs of injury. MEDICAL DECISION MAKING AND COURSE IN THE ED WITH INTERPRETATION/REVIEW OF DIAGNOSTIC STUDIES: This is a 89-year-old man with a past medical history of CLL and arrhythmia who has a pacemaker placed who presents to the emergency department as a medical resuscitation via EMS with a chief complaint of cough. Immediately upon entering the resuscitation room the patient was disrobed, placed on continuous cardiac monitoring, and IV access was established by nursing. Patient is able to speak thus displaying a patent airway, breath sounds are equal bilaterally, and patient has palpable pulses in all 4 extremities. Cardiac monitoring at this time did reveal sinus rhythm and pulse oximetry with good waveform was 93% on room air. The patient is febrile, hypotensive, and hypoxic. At this time I am concerned about the possibility of sepsis secondary to a pneumonia. Will obtain a septic work-up including cardiac work-up with troponin. Will obtain a chest x-ray given the cough. Given the hypotension we will provide the patient with 30 cc/kg bolus, obtain blood cultures, and start the patient on cefepime and vancomycin. We will start the patient on lactated Ringer's 125 cc/h for maintenance fluids. The patient did take Tylenol approximately 2 and half hours prior to arrival. We will hold off on antipyretics at this time. Patient was amenable to this plan. Patient arrived at the time of signout. Patient was signed out to oncoming night team physician pending work-up and final disposition DISPOSITION: Signed out to oncoming night team physician pending work-up and final disposition CONDITION: Serious FINAL IMPRESSION(S)/DIAGNOSES: 1. Acute sepsis likely secondary to pneumonia 2. Acute hypotension likely secondary #1 - Related Data Allergies Allergy/AdvReac Type Severity Reaction Status Date / Time No Known Allergies Allergy Verified 01/30/21 11:50 Home Meds: Home Meds Levothyroxine Sodium [Levo-T] 50 mcg PO QAM 10/29/17 [History] Simvastatin [Zocor] 40 mg PO QAM 10/29/17 [History] Gabapentin [Neurontin] 400 mg PO Q6HR 12/03/17 [History] DULoxetine [Cymbalta] 20 mg PO DAILY 10/15/20 [History] Past Medical History HEENT History: Reports: Hard of Hearing Other HEENT History: wears glasses, has bilateral hearing aides Cardiovascular History: Reports: High Cholesterol Other Cardiovascular History: hx of bradycardia, states blood pressure runs low Respiratory History: Reports: None Gastrointestinal History: Reports: None Genitourinary History: Reports: Prostate Disorder, Urinary Incontinence Musculoskeletal History: Reports: None Neurological History: Reports: CVA, Neuropathy, Peripheral, TIA Other 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 Psychiatric History: Reports: None Endocrine/Metabolic History: Reports: Hypothyroidism Insulin Pump Model and Prn Occupational Therapist: None Hematologic History: Reports: Anemia Other Hematologic History: hx of chronic leukemia Immunologic History: Reports: None 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, Leukemia, Prostate Dermatologic History: Reports: None Other Dermatologic History: hx of shingles- still has pain down his arm- takes Gabapentin - Infectious Disease History Infectious Disease History: Reports: Chicken Pox, Shingles - Past Surgical History Head Surgeries/Procedures: Reports: None HEENT Surgical History: Reports: None Cardiovascular Surgical History: Reports: None Respiratory Surgical History: Reports: None GI Surgical History: Reports: None Male Surgical History: Reports: TURBT-Transurethral Resection of Bladder Tumor, TURP-Transurethral Resection of Prostate, Other (See Below) Other Male Surgeries/Procedures: artificial urinary sphincter implanted Endocrine Surgical History: Reports: None Neurological Surgical History: Reports: None Musculoskeletal Surgical History: Reports: None Oncologic Surgical History: Reports: Other (See Below) Other Oncologic Surgeries/Procedures: prostatectomy, TURBT Dermatological Surgical History: Reports: None Social & Family History - Family History Family Medical History: No Pertinent Family History - Tobacco Use Second Hand Smoke Exposure: No - Caffeine Use Caffeine Use: Reports: None - Recreational Drug Use Recreational Drug Use: No ED ROS GENERAL - Review of Systems Review Of Systems: See Below ED EXAM, GENERAL - Physical Exam Exam: See Below Departure - Departure Disposition: Home, Self-Care 01 Clinical Impression: Dehydration, COVID-19 virus infection, Pneumonia due to COVID-19 virus - Discharge Information Instructions: 10 Things You Can Do to Manage Your COVID-19 Symptoms at Home - [facility] (12/21/2020) Referrals: jP Sanders MD [Primary Care Provider] - Forms: ED Department Discharge Additional Instructions: You were seen and evaluated in the ER today secondary to a recent trip and fall while you are in the garage. You do not appear to have any sequela or abnormalities from the fall. You also have symptoms that were concerning for coronavirus infection. Your coronavirus test today was positive. Your oxygen level has been doing well while you have been in the ER. At this time, you do not meet criteria for inpatient level of care and can be safely discharged home. Please return to the ER if your oxygen level should drop below 90% or if you start experiencing worsening shortness of breath. We recommend purchasing a oxygen meter from the pharmacy so they can keep tabs on your oxygen level over the next week. We have faxed your information to our infusion center in order for you to receive Regeneron therapy. This is a recombinant antibody to help prevent your infection from getting to severe. You should get a call in the next 1 to 2 days from the infusion center to schedule you for an appointment to come in to receive Regeneron. Please return the ER if you develop any new or concerning symptoms. Please drink plenty of liquids and get plenty of rest over the next couple days. You can take acetaminophen as needed for fever. 1. Your COVID-19 screening is positive. That means you do have the coronavirus and you are considered contagious. Your vital signs and oxygen saturation are w ell enough that you were able to monitor your symptoms at home. Continue to monitor for trouble breathing, new confusion or inability to arouse, bluish lips or face or any of the other symptoms we discussed -if this occurs please return to the emergency room. 2. Please self quarantine over the next 10 days. Inform any persons that you have been in contact with since you started becoming symptomatic that you have tested positive; they should be made aware and take the appropriate steps as needed. 3. You can take NyQuil during the evening to help get a restful night sleep. May alternate Tylenol and ibuprofen as needed for pain and fever management. 4. The [facility] department will be calling you and following up with you. The [place] [facility] Hotline phone number , They are open Thursday - Thursday 7am - 7pm. Follow up with your primary care provider for re-evaluation and re-testing after the 10 day quarantine and discuss when you should be seen. The following information is given to patients seen in the emergency department who are being discharged to home. This information is to outline your options for follow-up care. We provide all patients seen in our emergency department with a follow-up referral. The need for follow-up, as well as the timing and circumstances, are variable depending upon the specifics of your emergency department visit. If you don't have a primary care physician on staff, we will provide you with a referral. We always advise you to contact your personal physician following an emergency department visit to inform them of the circumstance of the visit and for follow-up with them and/or the need for any referrals to a consulting specialist. The emergency department will also refer you to a specialist when appropriate. This referral assures that you have the opportunity for follow-up care with a specialist. All of these measure are taken in an effort to provide you with optimal care, which includes your follow-up. Under all circumstances we always encourage you to contact your private physician who remains a resource for coordinating your care. When calling for follow-up care, please make the office aware that this follow-up is from your recent emergency room visit. If for any reason you are refused follow-up, please contact the [facility] Emergency Department at and asked to speak to the emergency department charge nurse. [facility] [address] [place] [id number] [facility] [address] [place] [address] Sepsis Event Note (ED) - Evaluation Sepsis Screening Result: No Definite Risk <Timo Renee - Last Filed: 04/29/21 21:53> ED HPI GENERAL MEDICAL PROBLEM - History of Present Illness INITIAL COMMENTS - FREE TEXT/NARRATIVE: 9:48 PM: Signout received at [address] Braun. Patient has been reexamined by me and chart has been reviewed. This is an 89-year-old gentleman who presents ER today with signs and symptoms consistent with coronavirus. Upon initial evaluation the patient was slightly hypotensive which responded rapidly with IV fluids. Patient does have a history of CLL and has a markedly elevated WBC count which is at or better than his baseline. Patient's pulse ox is 92 to 96% on room air while resting here in the ED without any supplemental oxygen. Patient is feeling well at this time. I have discussed with him option for Regeneron and they are in agreement with getting the Regeneron infusion. Form will be faxed to our infusion center and I have informed them that they will be contacted for time further infusion. Patient is otherwise clinically and hemodynamically stable for discharge home with close observation. Patient is to return to the ER if he develops any increased shortness of breath or any new or concerning symptoms. Reassessment at the time of disposition demonstrates that the patient is in no acute distress. The patient has remained stable throughout the entire ED visit and is without objective evidence for acute process requiring urgent intervention or hospitalization. The patient is stable for discharge, counseling is provided as documented above, discussed symptomatic treatment and specific conditions for return. I have spoken with the patient/caregiver and discussed todays findings, in addition to providing specific details for the plan of care. Questions are answered and there is agreement with the plan. Course - Vital Signs Last Recorded V/S: Last Vital Signs Temp 99.5 F 04/29/21 20:10 Pulse 75 04/29/21 20:45 Resp 20 04/29/21 20:45 BP 119/55 L 04/29/21 20:45 Pulse Ox 95 04/29/21 20:45 - Orders/Labs/Meds Orders: Active Orders 24 hr Category Date Time Status Cardiac Monitoring [RC] . DIRECTED Care 04/29/21 18:52 Active EKG Documentation Completion [RC] STAT Care 04/29/21 18:52 Active Pulse Oximetry [RC] ASDIRECTED Care 04/29/21 18:52 Active CULTURE BLOOD [BC] Stat Lab 04/29/21 18:35 Received CULTURE BLOOD [BC] Stat Lab 04/29/21 18:45 Received UA W/TOMAS RFLX IF INDICATED [URIN] Stat Lab 04/29/21 18:52 Ordered VANCOMYCIN TROUGH [CHEM] Timed Lab 05/02/21 19:00 Ordered Lactated Ringers [Ringers, Lactated] 1,000 ml Med 04/29/21 19:00 Active IV ASDIRECTED Lactated Ringers [Ringers, Lactated] 1,000 ml Med 04/29/21 19:00 Active IV ASDIRECTED Lactated Ringers [Ringers, Lactated] 1,000 ml Med 04/29/21 19:00 Active IV ASDIRECTED Pharmacy to Dose - Vancomycin Med 04/29/21 19:09 Pending 1 dose .XX ONETIME ONE Vancomycin 1 gm Med 04/29/21 20:00 Active Sodium Chloride 0.9% [Normal Saline AdvBag] 250 ml IV Q24H Blood Culture x2 Reflex Set [OM.PC] Stat Oth 04/29/21 18:52 Ordered Medication Orders Lactated Ringer's (Ringers, Lactated) 1,000 mls @ 999 mls/hr IV ASDIRECTED [facility] Last Admin: 04/29/21 20:16 Dose: 999 mls/hr Documented by: Infusion: 04/29/21 20:16 Dose: 999 mls/hr Documented by: Admin: 04/29/21 19:25 Dose: 999 mls/hr Documented by: NEL Lactated Ringer's (Ringers, Lactated) 1,000 mls @ 460 mls/hr IV ASDIRECTED [facility] Lactated Ringer's (Ringers, Lactated) 1,000 mls @ 125 mls/hr IV ASDIRECTED [facility] Last Admin: 04/29/21 20:18 Dose: 125 mls/hr Documented by: NEL Vancomycin HCl 1 gm/ Sodium (Chloride) 250 mls @ 166.667 mls/hr IV Q24H DAVID Last Admin: 04/29/21 20:42 Dose: 166.667 mls/hr Documented by: NEL Vancomycin HCl (Pharmacy To Dose - Vancomycin) 1 dose .XX ONETIME ONE Stop: 04/29/21 19:10 Labs: Laboratory Tests 04/29/21 04/29/21 04/29/21 Range/Units 18:30 18:35 18:35 WBC (4.0-11.0) K/uL RBC (4.50-5.90) M/uL Hgb (13.0-17.0) g/dL Hct (38.0-50.0) % MCV (80.0-98.0) fL MCH (27.0-32.0) pg MCHC (31.0-37.0) g/dL RDW Std Deviation (28.0-62.0) fl RDW Coeff of Jarod (11.0-15.0) % Plt Count (150-400) K/uL MPV (7.40-12.00) fL Add Manual Diff Neutrophils % (Manual) (48.0-80.0) % Band Neutrophils % % Lymphocytes % (Manual) (16.0-40.0) % Metamyelocytes % % Nucleated RBC % /100WBC Absolute Seg Neuts (1.4-5.7) Band Neutrophils # Lymphocytes # (Manual) (0.6-2.4) Absolute Metamyelocyte Nucleated RBCs # K/uL INR Sodium 134 L (136-148) mmol/L Potassium 5.5 H (3.5-5.1) mmol/L Chloride 101 (98-107) mmol/L Carbon Dioxide 24.7 (21.0-32.0) mmol/L BUN 30 H (7.0-18.0) mg/dL Creatinine 1.3 (0.8-1.3) mg/dL Est Cr Clr Drug Dosing 42.28 mL/min Estimated GFR (MDRD) 52.0 ml/min Glucose 132 H (74-106) mg/dL Lactic Acid 0.8 (0.4-2.0) mmol/L Calcium 7.8 L (8.5-10.1) mg/dL Magnesium 2.1 (1.8-2.4) mg/dL Total Bilirubin 0.4 (0.2-1.0) mg/dL AST 63 H (15-37) IU/L ALT 43 (14-63) IU/L Alkaline Phosphatase 111 (46-116) U/L Creatine Kinase 132 (26-308) U/L Troponin I < 0.050 (0.000-0.056) ng/mL Total Protein 5.6 L (6.4-8.2) g/dL Albumin 2.8 L (3.4-5.0) g/dL Globulin 2.8 (2.6-4.0) g/dL Albumin/Globulin Ratio 1.0 (0.9-1.6) Free T4 0.90 (0.76-1.46) ng/dL TSH, Ultra Sensitive 8.15 H (0.36-3.74) uIU/mL Influenza Type A RNA NEGATIVE (NEGATIVE) RSV RNA (INAAT) NEGATIVE (NEGATIVE) Influenza Type B RNA NEGATIVE (NEGATIVE) SARS-CoV-2 RNA (RODGER) POSITIVE H (NEGATIVE) 04/29/21 04/29/21 Range/Units 18:35 18:35 WBC 132.17 H (4.0-11.0) K/uL RBC 3.51 L (4.50-5.90) M/uL Hgb 11.3 L (13.0-17.0) g/dL Hct 35.0 L (38.0-50.0) % MCV 99.7 H (80.0-98.0) fL MCH 32.2 H (27.0-32.0) pg MCHC 32.3 (31.0-37.0) g/dL RDW Std Deviation 52.4 (28.0-62.0) fl RDW Coeff of Jarod 15 (11.0-15.0) % Plt Count 67 L (150-400) K/uL MPV 11.50 (7.40-12.00) fL Add Manual Diff YES Neutrophils % (Manual) 1 L (48.0-80.0) % Band Neutrophils % 4 % Lymphocytes % (Manual) 94 H (16.0-40.0) % Metamyelocytes % 1 % Nucleated RBC % 0.0 /100WBC Absolute Seg Neuts 1.3 L (1.4-5.7) Band Neutrophils # 5.3 Lymphocytes # (Manual) 124.2 H (0.6-2.4) Absolute Metamyelocyte 1.3 Nucleated RBCs # 0 K/uL INR 1.06 Sodium (136-148) mmol/L Potassium (3.5-5.1) mmol/L Chloride (98-107) mmol/L Carbon Dioxide (21.0-32.0) mmol/L BUN (7.0-18.0) mg/dL Creatinine (0.8-1.3) mg/dL Est Cr Clr Drug Dosing mL/min Estimated GFR (MDRD) ml/min Glucose (74-106) mg/dL Lactic Acid (0.4-2.0) mmol/L Calcium (8.5-10.1) mg/dL Magnesium (1.8-2.4) mg/dL Total Bilirubin (0.2-1.0) mg/dL AST (15-37) IU/L ALT (14-63) IU/L Alkaline Phosphatase (46-116) U/L Creatine Kinase (26-308) U/L Troponin I (0.000-0.056) ng/mL Total Protein (6.4-8.2) g/dL Albumin (3.4-5.0) g/dL Globulin (2.6-4.0) g/dL Albumin/Globulin Ratio (0.9-1.6) Free T4 (0.76-1.46) ng/dL TSH, Ultra Sensitive (0.36-3.74) uIU/mL Influenza Type A RNA (NEGATIVE) RSV RNA (INAAT) (NEGATIVE) Influenza Type B RNA (NEGATIVE) SARS-CoV-2 RNA (RODGER) (NEGATIVE) Meds: Medications Generic Name Dose Route Start Last Admin Trade Name Freq PRN Reason Stop Dose Admin Lactated Ringer's 1,000 mls @ 999 mls/hr 04/29/21 19:00 04/29/21 20:16 Ringers, Lactated IV 999 mls/hr ASDIRECTED DAVID Administration Lactated Ringer's 1,000 mls @ 460 mls/hr 04/29/21 19:00 Ringers, Lactated IV ASDIRECTED DAVID Lactated Ringer's 1,000 mls @ 125 mls/hr 04/29/21 19:00 04/29/21 20:18 Ringers, Lactated IV 125 mls/hr ASDIRECTED DAVID Administration Vancomycin HCl 1 gm/ Sodium 250 mls @ 166.667 mls/hr 04/29/21 20:00 04/29/21 20:42 Chloride IV 166.667 mls/hr Q24H DAVID Administration Vancomycin HCl 1 dose 04/29/21 19:09 Pharmacy To Dose - Vancomycin .XX 04/29/21 19:10 ONETIME ONE Discontinued Medications Generic Name Dose Route Start Last Admin Trade Name Freq PRN Reason Stop Dose Admin Lactated Ringer's 1,000 mls @ 999 mls/hr 04/29/21 18:51 04/29/21 19:24 Ringers, Lactated IV 04/29/21 19:51 999 mls/hr .BOLUS ONE Administration Cefepime HCl 2 gm/ Premix 50 mls @ 100 mls/hr 04/29/21 19:08 04/29/21 19:51 IV 04/29/21 19:37 100 mls/hr ONETIME ONE Administration Departure - Departure Time of Disposition: 21:50 Condition: Good Sepsis Event Note (ED) - Focused Exam Vital Signs: Vital Signs Temp Temp Pulse Resp BP Pulse Ox 04/29/21 20:45 75 20 119/55 L 95 04/29/21 20:10 99.5 F 75 20 110/51 L 93 L 04/29/21 18:55 98.7 F 73 20 95/47 L 93 L - My Orders Last 24 Hours: My Active Orders 04/29/21 20:00 Vancomycin 1 gm Sodium Chloride 0.9% [Normal Saline AdvBag] 250 ml IV Q24H 05/02/21 19:00 VANCOMYCIN TROUGH [CHEM] Timed - Assessment/Plan Last 24 Hours: My Active Orders 04/29/21 20:00 Vancomycin 1 gm Sodium Chloride 0.9% [Normal Saline AdvBag] 250 ml IV Q24H 05/02/21 19:00 VANCOMYCIN TROUGH [CHEM] Timed
[2021-04-29 19:55] LABS: CORONAVIRUS COVID-19 NAA POSITIVE (NEGATIVE); INFLUENZA A NAA NEGATIVE (NEGATIVE); INFLUENZA B NAA NEGATIVE (NEGATIVE); RESPIRATORY SYNCYTIAL VIR NAA NEGATIVE (NEGATIVE)
--- NOTE | 2021-04-29 19:55 | CR ---
Indication: Shortness of breath Comparison: Single view chest October 15, 2020 Technique: Single AP view chest Findings: There is hyperinflation and chronic interstitial change. There are mildly increased interstitial markings likely representing pulmonary edema. There is basilar airspace opacity which may represent superimposed infiltrate. There is no pneumothorax or pleural effusion. The cardiac silhouette is mildly prominent with a dual-chamber pacer. The bony thorax is grossly intact. Impression: Hyperinflation and chronic interstitial changes with mildly increased interstitial markings likely representing pulmonary edema. Minimal airspace opacity seen within the right lung base which may represent infiltrate. Dictated by Tien Huddleston MD @ 04/29/2021 7:54:08 PM (Electronically Signed)
== END 2021-04-29 22:30 | disposition home or self-care (01) ==
LOC: MW.ED 18:32
DX: A41.89 Other specified sepsis (principal); U07.1 COVID-19; J12.82 Pneumonia due to coronavirus disease 2019; E86.0 Dehydration; I95.9 Hypotension, unspecified; E78.00 Pure hypercholesterolemia, unspecified; E03.9 Hypothyroidism, unspecified; Z79.899 Other long term (current) drug therapy
CPT/HCPCS: 0241U; 36415; 71045; 80053; 82550; 83605; 83735; 84439; 84443; 84484; 85025; 85610; 87040; 96365; 96366; 96367; 99285; J0692; J3370; J7050; J7120; 87150

== ENCOUNTER 2021-05-01 08:47 | Inpatient (IN) | payer MEDICARE, BC ==
--- NOTE | 2021-05-01 08:51 | EDM.PDOC ---
ED HPI GENERAL MEDICAL PROBLEM - General Stated Complaint: INFECTION Time Seen by Provider: 05/01/21 08:50 Source of Information: Reports: Patient History Limitations: Reports: No Limitations - History of Present Illness INITIAL COMMENTS - FREE TEXT/NARRATIVE: 89-year-old male past medical history CLL, pacemaker device presents for positive blood cultures. Patient was seen in the emergency department 2 days ago after a fall. Patient was noted to be hypotensive and has been complaining of cough with yellow sputum for the last several days. He ended up testing Covid positive despite being vaccinated. His labs were remarkable for significantly elevated white blood cells consistent with history of CLL. He underwent a medical work-up and was discharged with a diagnosis of COVID-19 infection. He did receive the Regeneron therapy yesterday. He was called back to the emergency department today for positive blood culture. 1 tube did not show growth whereas the other tube grew gram-positive cocci in pairs and clusters. Patient notes that he is feeling better over the last day regarding his Covid symptoms. Denies any fevers or new symptom development. - Related Data Allergies Allergy/AdvReac Type Severity Reaction Status Date / Time No Known Allergies Allergy Verified 05/01/21 09:08 Home Meds: Home Meds Levothyroxine Sodium [Levo-T] 50 mcg PO QAM 10/29/17 [History] Simvastatin [Zocor] 40 mg PO QAM 10/29/17 [History] Gabapentin [Neurontin] 400 mg PO Q6HR 12/03/17 [History] DULoxetine [Cymbalta] 20 mg PO DAILY 10/15/20 [History] Past Medical History HEENT History: Reports: Hard of Hearing Other HEENT History: wears glasses, has bilateral hearing aides Cardiovascular History: Reports: High Cholesterol Other Cardiovascular History: hx of bradycardia, states blood pressure runs low Respiratory History: Reports: None Gastrointestinal History: Reports: None Genitourinary History: Reports: Prostate Disorder, Urinary Incontinence Musculoskeletal History: Reports: None Neurological History: Reports: CVA, Neuropathy, Peripheral, TIA Other 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 Psychiatric History: Reports: None Endocrine/Metabolic History: Reports: Hypothyroidism Insulin Pump Model and Records Tech: None Hematologic History: Reports: Anemia Other Hematologic History: hx of chronic leukemia Immunologic History: Reports: None 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, Leukemia, Prostate Dermatologic History: Reports: None Other Dermatologic History: hx of shingles- still has pain down his arm- takes Gabapentin - Infectious Disease History Infectious Disease History: Reports: Chicken Pox, Shingles - Past Surgical History Head Surgeries/Procedures: Reports: None HEENT Surgical History: Reports: None Cardiovascular Surgical History: Reports: None Respiratory Surgical History: Reports: None GI Surgical History: Reports: None Male Surgical History: Reports: TURBT-Transurethral Resection of Bladder Tumor, TURP-Transurethral Resection of Prostate, Other (See Below) Other Male Surgeries/Procedures: artificial urinary sphincter implanted Endocrine Surgical History: Reports: None Neurological Surgical History: Reports: None Musculoskeletal Surgical History: Reports: None Oncologic Surgical History: Reports: Other (See Below) Other Oncologic Surgeries/Procedures: prostatectomy, TURBT Dermatological Surgical History: Reports: None Social & Family History - Family History Family Medical History: No Pertinent Family History - Caffeine Use Caffeine Use: Reports: None ED ROS GENERAL - Review of Systems Review Of Systems: Comprehensive ROS is negative, except as noted in HPI. ED EXAM, GENERAL - Physical Exam Exam: See Below Exam Limited By: No Limitations General Appearance: Alert, WD/WN, No Apparent Distress Ears: Hearing Grossly Normal Nose: Normal Inspection Throat/Mouth: Normal Voice, No Airway Compromise Head: Atraumatic, Normocephalic Respiratory/Chest: No Respiratory Distress, Lungs Clear, Normal Breath Sounds, No Accessory Muscle Use Cardiovascular: Normal Peripheral Pulses, Regular Rate, Rhythm Extremities: Normal Inspection Neurological: Alert Psychiatric: Normal Affect, Normal Mood Skin Exam: Warm, Dry, Intact, Normal Color Course - Vital Signs Last Recorded V/S: Last Vital Signs Temp 97.4 F 05/01/21 09:08 Pulse 90 05/01/21 09:08 Resp 18 05/01/21 09:08 BP 128/54 L 05/01/21 09:08 Pulse Ox 82 L 05/01/21 09:08 - Orders/Labs/Meds Orders: Active Orders 24 hr Category Date Time Status CULTURE BLOOD [BC] Stat Lab 05/01/21 09:23 Received CULTURE BLOOD [BC] Stat Lab 05/01/21 09:29 Results REFLEX LACTIC ACID YES OR NO [CHEM] Routine Lab 05/01/21 10:17 Received UA W/TOMAS RFLX IF INDICATED [URIN] Stat Lab 05/01/21 08:55 Ordered Sodium Chloride 0.9% [Normal Saline] 1,000 ml Med 05/01/21 10:20 Active IV .Bolus Sodium Chloride 0.9% [Normal Saline] 1,000 ml Med 05/01/21 10:20 Active IV .Bolus VANCOmycin 1.25 GM/250 ML 1.25 gm Med 05/01/21 09:15 Active Premix Bag 1 bag IV ONETIME Blood Culture x2 Reflex Set [OM.PC] Stat Ot 05/01/21 08:55 Ordered Saline Lock Insert [OM.PC] Stat Oth 05/01/21 08:55 Ordered Medication Orders Vancomycin HCl 1.25 gm/ Premix 250 mls @ 166.667 mls/hr IV ONETIME ONE Stop: 05/01/21 10:44 Last Admin: 05/01/21 09:48 Dose: 166.667 mls/hr Documented by: YOANA Sodium Chloride (Normal Saline) 1,000 mls @ 999 mls/hr IV .Bolus ONE Stop: 05/01/21 11:20 Last Admin: 05/01/21 10:23 Dose: 999 mls/hr Documented by: DM Sodium Chloride (Normal Saline) 1,000 mls @ 999 mls/hr IV .Bolus ONE Stop: 05/01/21 11:20 Last Admin: 05/01/21 10:24 Dose: 999 mls/hr Documented by: DM Labs: Laboratory Tests 05/01/21 05/01/21 05/01/21 Range/Units 09:23 09:23 09:23 WBC 163.96 H (4.0-11.0) K/uL RBC 3.60 L (4.50-5.90) M/uL Hgb 11.8 L (13.0-17.0) g/dL Hct 36.2 L (38.0-50.0) % MCV 100.6 H (80.0-98.0) fL MCH 32.8 H (27.0-32.0) pg MCHC 32.6 (31.0-37.0) g/dL RDW Std Deviation 53.0 (28.0-62.0) fl RDW Coeff of Jarod 15 (11.0-15.0) % Plt Count 65 L (150-400) K/uL MPV 11.10 (7.40-12.00) fL Add Manual Diff YES Neutrophils % (Manual) 2 L (48.0-80.0) % Band Neutrophils % 4 % Lymphocytes % (Manual) 92 H (16.0-40.0) % Monocytes % (Manual) 2 (0.0-15.0) % Nucleated RBC % 0.0 /100WBC Absolute Seg Neuts 3.3 (1.4-5.7) Band Neutrophils # 6.6 Lymphocytes # (Manual) 150.8 H (0.6-2.4) Monocytes # (Manual) 3.3 H (0.0-0.8) Nucleated RBCs # 0 K/uL Sodium 134 L (136-148) mmol/L Potassium 5.0 (3.5-5.1) mmol/L Chloride 101 (98-107) mmol/L Carbon Dioxide 23.8 (21.0-32.0) mmol/L BUN 32 H (7.0-18.0) mg/dL Creatinine 1.8 H (0.8-1.3) mg/dL Est Cr Clr Drug Dosing 30.54 mL/min Estimated GFR (MDRD) 35.7 ml/min Glucose 195 H (74-106) mg/dL Lactic Acid 3.2 H* (0.4-2.0) mmol/L Calcium 7.8 L (8.5-10.1) mg/dL Total Bilirubin 0.5 (0.2-1.0) mg/dL AST 89 H (15-37) IU/L ALT 67 H (14-63) IU/L Alkaline Phosphatase 102 (46-116) U/L C-Reactive Protein 14.10 H (0.00-0.90) mg/dL Total Protein 5.9 L (6.4-8.2) g/dL Albumin 2.7 L (3.4-5.0) g/dL Globulin 3.2 (2.6-4.0) g/dL Albumin/Globulin Ratio 0.8 L (0.9-1.6) Meds: Medications Generic Name Dose Route Start Last Admin Trade Name Freq PRN Reason Stop Dose Admin Vancomycin HCl 1.25 gm/ Premix 250 mls @ 166.667 mls/hr 05/01/21 09:15 05/01/21 09:48 IV 05/01/21 10:44 166.667 mls/hr ONETIME ONE Administration Sodium Chloride 1,000 mls @ 999 mls/hr 05/01/21 10:20 05/01/21 10:23 Normal Saline IV 05/01/21 11:20 999 mls/hr .Bolus ONE Administration Sodium Chloride 1,000 mls @ 999 mls/hr 05/01/21 10:20 05/01/21 10:24 Normal Saline IV 05/01/21 11:20 999 mls/hr .Bolus ONE Administration Discontinued Medications Generic Name Dose Route Start Last Admin Trade Name Roosevelt PRN Reason Stop Dose Admin Dexamethasone 6 mg 05/01/21 09:28 05/01/21 09:44 Dexamethasone 10 Mg/Ml Sdv IVPUSH 05/01/21 09:29 6 mg ONETIME ONE Administration Ceftriaxone Sodium/Dextrose 1 50 mls @ 100 mls/hr 05/01/21 08:54 05/01/21 09:44 gm/ Premix IV 05/01/21 09:23 100 mls/hr ONETIME ONE Administration Vancomycin HCl 1 dose 05/01/21 08:54 05/01/21 09:56 Pharmacy To Dose - Vancomycin .XX 05/01/21 08:55 Not Given ONETIME ONE - Re-Assessments/Exams Free Text/Narrative Re-Assessment/Exam: 05/01/21 09:20 Will get labs/imaging. Patient although not subjectively SOB is noted to have low O2 sats to high 70s/low 80s on RA improving to mid-90s on 4-L NC. I did discuss with patient that he will likely require admission for positive blood cultures, but he adamantly declines stating he has to go to [facility] today. He is agreeable to stay for bloodwork and imaging. Will revisit admission after labs have resulted. Will give rocephin/vanc for positive culture. 05/01/21 10:21 Patient has elevated lactate. Will give 2 L IV fluid bolus to meet 30 cc/kg bolus. Will talk to patient and recommend hospitalization. 05/01/21 10:32 I did speak with patient's [id number] on the phone with the patient's permission regarding his condition. She helps to make medical decisions as she is a nurse practitioner. She agrees with plan for hospitalization and requests that if patient were to require transfer to please try for [place] as [place] is where they live. I have paged the hospitalist for admission here. 05/01/21 10:[address] Dominguez who agrees to admit patient for further management and workup. Departure - Departure Time of Disposition: 10:36 Disposition: DC/Tfer to SNF 03 Condition: Good Clinical Impression: COVID-19 - Discharge Information Referrals: PCP,None [Primary Care Provider] - Critical Care Note - Critical Care Note Total Time (mins): 35 Sepsis Event Note (ED) - Focused Exam Vital Signs: Vital Signs Temp Pulse Resp BP Pulse Ox 05/01/21 09:08 97.4 F 90 18 128/54 L 82 L - My Orders Last 24 Hours: My Active Orders 05/01/21 08:55 UA W/TOMAS RFLX IF INDICATED [URIN] Stat Blood Culture x2 Reflex Set [OM.PC] Stat Saline Lock Insert [OM.PC] Stat 05/01/21 09:15 VANCOmycin 1.25 GM/250 ML 1.25 gm Premix Bag 1 bag IV ONETIME 05/01/21 09:23 CULTURE BLOOD [BC] Stat 05/01/21 09:29 CULTURE BLOOD [BC] Stat 05/01/21 10:17 REFLEX LACTIC ACID YES OR NO [CHEM] Routine 05/01/21 10:20 Sodium Chloride 0.9% [Normal Saline] 1,000 ml IV .Bolus Sodium Chloride 0.9% [Normal Saline] 1,000 ml IV .Bolus - Assessment/Plan Last 24 Hours: My Active Orders 05/01/21 08:55 UA W/TOMAS RFLX IF INDICATED [URIN] Stat Blood Culture x2 Reflex Set [OM.PC] Stat Saline Lock Insert [OM.PC] Stat 05/01/21 09:15 VANCOmycin 1.25 GM/250 ML 1.25 gm Premix Bag 1 bag IV ONETIME 05/01/21 09:23 CULTURE BLOOD [BC] Stat 05/01/21 09:29 CULTURE BLOOD [BC] Stat 05/01/21 10:17 REFLEX LACTIC ACID YES OR NO [CHEM] Routine 05/01/21 10:20 Sodium Chloride 0.9% [Normal Saline] 1,000 ml IV .Bolus Sodium Chloride 0.9% [Normal Saline] 1,000 ml IV .Bolus
[2021-05-01] MEDS ORDERED: cefTRIAXone 1 GM in Premix Bag 1 BAG IV ONE (08:54)
[2021-05-01] MEDS ORDERED: VANCOmycin 1.25 GM/250 ML 1.25 GM in Premix Bag 1 BAG IV ONE (09:15)
[2021-05-01] MEDS ORDERED: Dexamethasone 10 MG/ML SDV IVPUSH ONE (09:28)
--- NOTE | 2021-05-01 10:01 | CR ---
Indication: COVID-19 positive. Technique: Chest 1 view. Comparison: 04/29/2021. Findings/Impression: Cardiovascular and mediastinum: Heart size and vasculature are normal in caliber and appearance. Unchanged pacemaker. Lungs and pleural space: Ill-defined bilateral infiltrates are more prominent in the right lung. Findings are consistent with COVID pneumonitis of moderate severity. Bones and soft tissues: No acute findings. Dictated by Alek Ball MD @ 05/01/2021 9:59:50 AM (Electronically Signed)
[2021-05-01 10:16] LABS: CARBON DIOXIDE,CO2 23.8 mmol/L (21.0-32.0)
[2021-05-01] MEDS ORDERED: Sodium Chloride 0.9% 1,000 ML IV ONE ×2 (10:20)
[2021-05-01] MEDS ORDERED: Albuterol 0.083% 2.5 MG/3 ML Neb Soln NEB PRN (14:00)
[2021-05-01] MEDS ORDERED: Ondansetron 4 MG Tab.DIS PO PRN (14:00)
[2021-05-01] MEDS ORDERED: oxyCODONE 5 MG Tab PO PRN (14:00)
[2021-05-01] MEDS ORDERED: Docusate Sodium 100 MG Cap PO PRN (14:00)
[2021-05-01] MEDS ORDERED: Acetaminophen 325 MG Tab PO PRN (14:00)
[2021-05-01] MEDS: Albuterol/Ipratropium 3.0-0.5 MG/3 ML Neb Soln NEB SCH ×3 (16:21→21:31)
[2021-05-01] MEDS ORDERED: Gabapentin 100 MG Cap PO SCH ×2 (19:00→21:00)
[2021-05-01] MEDS ORDERED: Non-Formulary Medication 1 Each (Duloxetine 20 MG Cap) PO SCH (19:00)
--- NOTE | 2021-05-01 20:22 | PCM.HP.2 ---
H&P History of Present Illness - General Date of Service: 05/01/21 Admit Problem/Dx: Admission Diagnosis/Problem Admission Diagnosis/Problem Respiratory failure with hypoxia Dyspnea, cough Source of Information: Patient - History of Present Illness Initial Comments - Free Text/Narative: 89 y/o M with a h/o CLL, pacemaker device who presented to the ED with shortness of breath and a general sense of not feeling well for the last couple of days. He had some blood work done yesterday and today he had one out of two blood cultures turn positive for gram positive cocci in clusters. He was seen in the emergency department 2 days ago after a fall. Today he returned to the ED because he was not feeling well. While in the ED he was noted to be hypotensive. He has been complaining of cough with yellow sputum for the last several days. He also testing Covid positive despite having been fully vac cinated. His labs were remarkable for significantly elevated white blood cells consistent with history of CLL. Yesterday he tested positive for COVID 19 and was given Regeneron. He was called back to the emergency department by his PCP's office today and advised to come to the ED because one of his blood cultures is positive for gram positive cocci in clusters. He denies having any constitutional symptoms such as fevers or chills. - Related Data Allergies/Adverse Reactions: Allergies Allergy/AdvReac Type Severity Reaction Status Date / Time No Known Allergies Allergy Verified 05/01/21 15:12 Home Medications: Home Meds Levothyroxine Sodium [Levo-T] 50 mcg PO QAM 10/29/17 [History] Simvastatin [Zocor] 40 mg PO QAM 10/29/17 [History] Gabapentin [Neurontin] 1,200 mg PO BID 12/03/17 [History] DULoxetine [Cymbalta] 20 mg PO BID 10/15/20 [History] Aspirin [Aspirin EC] 81 mg PO DAILY 05/01/21 [History] Past Medical History HEENT History: Reports: Hard of Hearing Other HEENT History: wears glasses, has bilateral hearing aides Cardiovascular History: Reports: High Cholesterol Other Cardiovascular History: hx of bradycardia, states blood pressure runs low Respiratory History: Reports: None Gastrointestinal History: Reports: None Genitourinary History: Reports: Prostate Disorder, Urinary Incontinence Musculoskeletal History: Reports: None Neurological History: Reports: CVA, Neuropathy, Peripheral, TIA Other 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 Psychiatric History: Reports: None Endocrine/Metabolic History: Reports: Hypothyroidism Insulin Pump Model and Medical Scheduler: None Hematologic History: Reports: Anemia Other Hematologic History: hx of chronic leukemia Immunologic History: Reports: None 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, Leukemia, Prostate Dermatologic History: Reports: None Other Dermatologic History: hx of shingles- still has pain down his arm- takes Gabapentin - Infectious Disease History Infectious Disease History: Reports: Chicken Pox, Novel Coronavirus, Shingles - Past Surgical History Head Surgeries/Procedures: Reports: None HEENT Surgical History: Reports: None Cardiovascular Surgical History: Reports: None Respiratory Surgical History: Reports: None GI Surgical History: Reports: None Male Surgical History: Reports: TURBT-Transurethral Resection of Bladder Tumo r, TURP-Transurethral Resection of Prostate, Other (See Below) Other Male Surgeries/Procedures: artificial urinary sphincter implanted Endocrine Surgical History: Reports: None Neurological Surgical History: Reports: None Musculoskeletal Surgical History: Reports: None Oncologic Surgical History: Reports: Other (See Below) Other Oncologic Surgeries/Procedures: prostatectomy, TURBT Dermatological Surgical History: Reports: None Social & Family History - Family History Family Medical History: No Pertinent Family History - Tobacco Use Tobacco Use Status *Q: Never Tobacco User - Caffeine Use Caffeine Use: Reports: Coffee - Recreational Drug Use Recreational Drug Use: No H&P Review of Systems - Review of Systems: Review Of Systems: See Below Exam - Exam Exam: See Below - Vital Signs Vital Signs: Last Vital Signs Temp 98.8 F 05/01/21 19:26 Pulse 85 05/01/21 19:26 Resp 25 H 05/01/21 19:26 BP 109/59 L 05/01/21 19:26 Pulse Ox 95 05/01/21 19:26 Weight: 180 lb - Exam Physical Exam Comments:: General: elderly male. In no distress CVS: S1S2 appreciated. RRR lungs: Diminished breath sounds bilaterally pa: soft, obese, non tender. Bowel sounds present ext: no clubbing, cyanosis or edema neuro: moves all extremities. No focal deficits psych: stable mood and affect. - Patient Data Lab Results Last 24 hrs: Laboratory Results - last 24 hr 05/01/21 05/01/21 05/01/21 Range/Units 09:23 09:23 09:23 WBC 163.96 H (4.0-11.0) K/uL RBC 3.60 L (4.50-5.90) M/uL Hgb 11.8 L (13.0-17.0) g/dL Hct 36.2 L (38.0-50.0) % MCV 100.6 H (80.0-98.0) fL MCH 32.8 H (27.0-32.0) pg MCHC 32.6 (31.0-37.0) g/dL RDW Std Deviation 53.0 (28.0-62.0) fl RDW Coeff of Jarod 15 (11.0-15.0) % Plt Count 65 L (150-400) K/uL MPV 11.10 (7.40-12.00) fL Add Manual Diff YES Neutrophils % (Manual) 2 L (48.0-80.0) % Band Neutrophils % 4 % Lymphocytes % (Manual) 92 H (16.0-40.0) % Monocytes % (Manual) 2 (0.0-15.0) % Nucleated RBC % 0.0 /100WBC Absolute Seg Neuts 3.3 (1.4-5.7) Band Neutrophils # 6.6 Lymphocytes # (Manual) 150.8 H (0.6-2.4) Monocytes # (Manual) 3.3 H (0.0-0.8) Nucleated RBCs # 0 K/uL Sodium 134 L (136-148) mmol/L Potassium 5.0 (3.5-5.1) mmol/L Chloride 101 (98-107) mmol/L Carbon Dioxide 23.8 (21.0-32.0) mmol/L BUN 32 H (7.0-18.0) mg/dL Creatinine 1.8 H (0.8-1.3) mg/dL Est Cr Clr Drug Dosing 30.54 mL/min Estimated GFR (MDRD) 35.7 ml/min Glucose 195 H (74-106) mg/dL Lactic Acid 3.2 H* (0.4-2.0) mmol/L Calcium 7.8 L (8.5-10.1) mg/dL Total Bilirubin 0.5 (0.2-1.0) mg/dL AST 89 H (15-37) IU/L ALT 67 H (14-63) IU/L Alkaline Phosphatase 102 (46-116) U/L C-Reactive Protein 14.10 H (0.00-0.90) mg/dL Total Protein 5.9 L (6.4-8.2) g/dL Albumin 2.7 L (3.4-5.0) g/dL Globulin 3.2 (2.6-4.0) g/dL Albumin/Globulin Ratio 0.8 L (0.9-1.6) 05/01/21 Range/Units 14:36 WBC (4.0-11.0) K/uL RBC (4.50-5.90) M/uL Hgb (13.0-17.0) g/dL Hct (38.0-50.0) % MCV (80.0-98.0) fL MCH (27.0-32.0) pg MCHC (31.0-37.0) g/dL RDW Std Deviation (28.0-62.0) fl RDW Coeff of Jarod (11.0-15.0) % Plt Count (150-400) K/uL MPV (7.40-12.00) fL Add Manual Diff Neutrophils % (Manual) (48.0-80.0) % Band Neutrophils % % Lymphocytes % (Manual) (16.0-40.0) % Monocytes % (Manual) (0.0-15.0) % Nucleated RBC % /100WBC Absolute Seg Neuts (1.4-5.7) Band Neutrophils # Lymphocytes # (Manual) (0.6-2.4) Monocytes # (Manual) (0.0-0.8) Nucleated RBCs # K/uL Sodium (136-148) mmol/L Potassium (3.5-5.1) mmol/L Chloride (98-107) mmol/L Carbon Dioxide (21.0-32.0) mmol/L BUN (7.0-18.0) mg/dL Creatinine (0.8-1.3) mg/dL Est Cr Clr Drug Dosing mL/min Estimated GFR (MDRD) ml/min Glucose (74-106) mg/dL Lactic Acid 1.2 (0.4-2.0) mmol/L Calcium (8.5-10.1) mg/dL Total Bilirubin (0.2-1.0) mg/dL AST (15-37) IU/L ALT (14-63) IU/L Alkaline Phosphatase (46-116) U/L C-Reactive Protein (0.00-0.90) mg/dL Total Protein (6.4-8.2) g/dL Albumin (3.4-5.0) g/dL Globulin (2.6-4.0) g/dL Albumin/Globulin Ratio (0.9-1.6) Result Diagrams: 05/02/21 06:44 05/02/21 06:44 Mejia Results Last 24 hrs: Microbiology 05/01/21 09:29 Anaerobic Blood Culture - Final Blood - Venous - Lab Draw Sepsis Event Note - Evaluation Sepsis Screening Result: Possible Sepsis Risk - Focused Exam Vital Signs: Vital Signs Temp Pulse Resp BP Pulse Ox Pulse Ox 05/01/21 19:26 98.8 F 85 25 H 109/59 L 95 05/01/21 14:45 96.6 F L 77 20 118/59 L 93 L 05/01/21 14:14 86 18 112/62 96 05/01/21 13:57 93 L 05/01/21 13:14 84 17 110/60 97 05/01/21 12:40 90 17 129/57 L 96 05/01/21 11:40 83 17 119/62 96 05/01/21 10:42 81 21 H 117/56 L 95 05/01/21 10:12 80 22 H 108/50 L 96 05/01/21 09:55 98 05/01/21 09:42 86 19 102/54 L 87 L 05/01/21 09:08 97.4 F 90 18 128/54 L 82 L - Problem List (1) Acute respiratory failure due to COVID-19 SNOMED Code(s): 772360102 ICD Code: U07.1 - COVID-19; J96.00 - ACUTE RESPIRATORY FAILURE, UNSP W HYPOXIA OR HYPERCAPNIA Status: Acute Current Visit: Yes (2) COVID-19 SNOMED Code(s): 307393701 ICD Code: U07.1 - COVID-19 Status: Acute Current Visit: Yes (3) Dehydration SNOMED Code(s): 25038468 ICD Code: E86.0 - DEHYDRATION Status: Acute Current Visit: No Problem List Initiated/Reviewed/Updated: Yes Orders Last 24hrs: Active Orders 24 hr Category Date Time Status Admission Status [Patient Status] [ADT] Stat ADT 05/01/21 10:52 Active Oxygen Therapy [RC] PRN Care 05/01/21 13:57 Active RT Aerosol Therapy [RC] ASDIRECTED Care 05/01/21 13:57 Active Up ad Fanny [RC] ASDIRECTED Care 05/01/21 13:57 Active VTE/DVT Education [RC] PER UNIT ROUTINE Care 05/01/21 13:57 Active Vital Signs [RC] Q4H Care 05/01/21 13:57 Active OT Evaluation and Treatment [CONS] Routine Cons 05/01/21 13:57 Active PT Evaluation and Treatment [CONS] Routine Cons 05/01/21 13:57 Active Regular Diet [DIET] Diet 05/01/21 Lunch Active BASIC METABOLIC PANEL,BMP [CHEM] AM Lab 05/02/21 05:11 Ordered CBC WITH AUTO DIFF [HEME] AM Lab 05/02/21 05:11 Ordered CULTURE BLOOD [BC] Stat Lab 05/01/21 09:23 Received CULTURE BLOOD [BC] Stat Lab 05/01/21 09:29 Results UA W/MEJIA RFLX IF INDICATED [URIN] Stat Lab 05/01/21 08:55 Ordered Acetaminophen [TylenoL] Med 05/01/21 14:00 Active 650 mg PO Q4H PRN Albuterol [Proventil Neb Soln] Med 05/01/21 14:00 Active 2.5 mg NEB Q2H PRN Albuterol/Ipratropium [DuoNeb 3.0-0.5 MG/3 ML] Med 05/01/21 14:00 Active 3 ml NEB Q4HRRT Aspirin [Halfprin] Med 05/02/21 09:00 Active 81 mg PO DAILY DULoxetine Med 05/01/21 21:00 Pending 20 mg PO BID Docusate Sodium [Colace] Med 05/01/21 14:00 Active 100 mg PO BID PRN Gabapentin [Neurontin] Med 05/01/21 21:00 Active 800 mg PO BEDTIME Levothyroxine [Synthroid] Med 05/02/21 07:00 Active 50 mcg PO DAILY@0700 Ondansetron [Zofran ODT] Med 05/01/21 14:00 Active 4 mg PO Q4H PRN dexAMETHasone Med 05/02/21 09:00 Active 6 mg PO DAILY oxyCODONE Med 05/01/21 14:00 Active 5 mg PO Q4H PRN Blood Culture x2 Reflex Set [OM.PC] Stat Oth 05/01/21 08:55 Ordered Saline Lock Insert [OM.PC] Stat Oth 05/01/21 08:55 Ordered Resuscitation Status Routine Resus Stat 05/01/21 10:53 Ordered Medication Orders Acetaminophen (Acetaminophen 325 Mg Tab) 650 mg PO Q4H PRN PRN Reason: Pain (Mild 1-3)/fever Albuterol (Albuterol 0.083% 2.5 Mg/3 Ml Neb Soln) 2.5 mg NEB Q2H PRN PRN Reason: Shortness Of Breath/wheezing Albuterol/Ipratropium (Albuterol/Ipratropium 3.0-0.5 Mg/3 Ml Neb Soln) 3 ml NEB Q4HRRT [facility] Last Admin: 05/01/21 18:39 Dose: 3 ml Documented by: Admin: 05/01/21 16:21 Dose: Not Given Documented by: MICHELA Aspirin (Aspirin 81 Mg Tab.Ec) 81 mg PO DAILY [facility] Dexamethasone (Dexamethasone 4 Mg Tab) 6 mg PO DAILY [facility] Stop: 05/11/21 09:01 Docusate Sodium (Docusate Sodium 100 Mg Cap) 100 mg PO BID PRN PRN Reason: Constipation Gabapentin (Gabapentin 800 Mg Tab) 800 mg PO BEDTIME [facility] Levothyroxine Sodium (Levothyroxine 50 Mcg Tab) 50 mcg PO DAILY@0700 [facility] Non-Formulary Medication (Duloxetine) 20 mg PO BID [facility] Ondansetron HCl (Ondansetron 4 Mg Tab.Dis) 4 mg PO Q4H PRN PRN Reason: nausea, able to take PO Oxycodone HCl (Oxycodone 5 Mg Tab) 5 mg PO Q4H PRN PRN Reason: Pain (moderate 4-6) Assessment/Plan Comment:: 89 y/o M admitted with COVID 19 infection Admit to the medical floor. Treat pt with Dexamethasone and Remdesivir. Check a D dimer. incentive spirometry duonebs prn Positive blood culture likely a contaminant. Will hold off on Abx and monitor clinically. Await repeat blood cultures. CLL out pt follow up as per oncology Full code status DVT prophylaxis SQ lovenox. - Mortality Measure Prognosis:: Good
[2021-05-01] MEDS ORDERED: REMDESIVIR 200 MG in Sodium Chloride 0.9% 250 ML IV ONE (21:00)
[2021-05-01] MEDS ORDERED: Gabapentin 800 MG Tab PO SCH (21:00)
[2021-05-01] MEDS: Enoxaparin 40 MG/0.4 ML Syringe SUBCUT SCH (21:31)
[2021-05-02] MEDS: Albuterol/Ipratropium 3.0-0.5 MG/3 ML Neb Soln NEB SCH ×6 (02:29→21:53)
[2021-05-02] MEDS: Levothyroxine 50 MCG Tab PO SCH (06:12)
[2021-05-02 07:25] LABS: CARBON DIOXIDE,CO2 22.6 mmol/L (21.0-32.0); POTASSIUM,K 4.5 mmol/L (3.5-5.1)
[2021-05-02] MEDS ORDERED: Gabapentin 300 MG Cap PO SCH ×3 (08:30→21:00)
[2021-05-02] MEDS: Aspirin 81 MG Tab.EC PO SCH (09:22)
[2021-05-02] MEDS: Dexamethasone 4 MG Tab PO SCH (09:23)
--- NOTE | 2021-05-02 10:09 | PCM.PN ---
<Debbi Smith - Last Filed: 05/02/21 10:11> - General Info Date of Service: 05/02/21 Subjective Update: The patient is an 89-year-old male, on day 2 of service, who has a significant past medical history of CLL, pacemaker, and hypothyroidism, who was admitted to the medical floor due to COVID-19 pneumonia. Upon interview with the patient today at bedside, he continues to complain of cough productive of yellow sputum and shortness of breath. He is saturating 93% on 3 L of oxygen at the present moment. He also feels weak and needs assistance ambulating to the restroom. His appetite is intact and he has no issues with urination and/or defecation. He denies chest pain, palpitations, abdominal pain, nausea, vomiting, fever, and headache. He wants to feel stronger and the prospect of starting physical therapy was discussed with him which would most likely be initiated tomorrow. He has no other health concerns at this time. - Review of Systems General: Reports: Weakness, Fatigue. Denies: Fever HEENT: Denies: Headaches, Sore Throat Pulmonary: Reports: Shortness of Breath, Cough Cardiovascular: Denies: Chest Pain, Palpitations Gastrointestinal: Denies: Abdominal Pain Genitourinary: Denies: Dysuria - Patient Data Vitals - Most Recent: Last Vital Signs Temp 96.6 F L 05/02/21 09:00 Pulse 80 05/02/21 09:00 Resp 20 05/02/21 09:00 BP 137/63 05/02/21 09:00 Pulse Ox 93 L 05/02/21 09:00 Weight - Most Recent: 180 lb Lab Results Last 24 Hours: Laboratory Results - last 24 hr 05/01/21 05/01/21 05/01/21 Range/Units 09:23 09:23 09:23 WBC (4.0-11.0) K/uL RBC (4.50-5.90) M/uL Hgb (13.0-17.0) g/dL Hct (38.0-50.0) % MCV (80.0-98.0) fL MCH (27.0-32.0) pg MCHC (31.0-37.0) g/dL RDW Std Deviation (28.0-62.0) fl RDW Coeff of Jarod (11.0-15.0) % Plt Count (150-400) K/uL MPV (7.40-12.00) fL Add Manual Diff Neutrophils % (Manual) (48.0-80.0) % Band Neutrophils % % Lymphocytes % (Manual) (16.0-40.0) % Nucleated RBC % /100WBC Absolute Seg Neuts (1.4-5.7) Band Neutrophils # Lymphocytes # (Manual) (0.6-2.4) Nucleated RBCs # K/uL D-Dimer, Quantitative (0.0-0.50) mg/L FEU Sodium 134 L (136-148) mmol/L Potassium 5.0 (3.5-5.1) mmol/L Chloride 101 (98-107) mmol/L Carbon Dioxide 23.8 (21.0-32.0) mmol/L BUN 32 H (7.0-18.0) mg/dL Creatinine 1.8 H (0.8-1.3) mg/dL Est Cr Clr Drug Dosing 30.54 mL/min Estimated GFR (MDRD) 35.7 ml/min Glucose 195 H (74-106) mg/dL Lactic Acid 3.2 H* (0.4-2.0) mmol/L Calcium 7.8 L (8.5-10.1) mg/dL Total Bilirubin 0.5 (0.2-1.0) mg/dL Direct Bilirubin 0.20 (0.0-0.5) mg/dL AST 89 H (15-37) IU/L ALT 67 H (14-63) IU/L Alkaline Phosphatase 102 (46-116) U/L C-Reactive Protein 14.10 H (0.00-0.90) mg/dL Total Protein 5.9 L (6.4-8.2) g/dL Albumin 2.7 L (3.4-5.0) g/dL Globulin 3.2 (2.6-4.0) g/dL Albumin/Globulin Ratio 0.8 L (0.9-1.6) Urine Color Urine Appearance Urine pH (5.0-8.0) Ur Specific [place] (1.001-1.035) Urine Protein (NEGATIVE) mg/dL Urine Glucose (UA) (NEGATIVE) mg/dL Urine Ketones (NEGATIVE) mg/dL Urine Occult Blood (NEGATIVE) Urine Nitrite (NEGATIVE) Urine Bilirubin (NEGATIVE) Urine Urobilinogen (<2.0) EU/dL Ur Leukocyte Esterase (NEGATIVE) Urine RBC (0-2/HPF) Urine WBC (0-5/HPF) Ur Epithelial Cells (NONE-FEW) Urine Bacteria (NEGATIVE) Urine Mucus (NONE-MOD) 05/01/21 05/01/21 05/01/21 Range/Units 14:36 20:19 20:37 WBC (4.0-11.0) K/uL RBC (4.50-5.90) M/uL Hgb (13.0-17.0) g/dL Hct (38.0-50.0) % MCV (80.0-98.0) fL MCH (27.0-32.0) pg MCHC (31.0-37.0) g/dL RDW Std Deviation (28.0-62.0) fl RDW Coeff of Jarod (11.0-15.0) % Plt Count (150-400) K/uL MPV (7.40-12.00) fL Add Manual Diff Neutrophils % (Manual) (48.0-80.0) % Band Neutrophils % % Lymphocytes % (Manual) (16.0-40.0) % Nucleated RBC % /100WBC Absolute Seg Neuts (1.4-5.7) Band Neutrophils # Lymphocytes # (Manual) (0.6-2.4) Nucleated RBCs # K/uL D-Dimer, Quantitative 1.61 H (0.0-0.50) mg/L FEU Sodium (136-148) mmol/L Potassium (3.5-5.1) mmol/L Chloride (98-107) mmol/L Carbon Dioxide (21.0-32.0) mmol/L BUN (7.0-18.0) mg/dL Creatinine (0.8-1.3) mg/dL Est Cr Clr Drug Dosing mL/min Estimated GFR (MDRD) ml/min Glucose (74-106) mg/dL Lactic Acid 1.2 (0.4-2.0) mmol/L Calcium (8.5-10.1) mg/dL Total Bilirubin (0.2-1.0) mg/dL Direct Bilirubin (0.0-0.5) mg/dL AST (15-37) IU/L ALT (14-63) IU/L Alkaline Phosphatase (46-116) U/L C-Reactive Protein (0.00-0.90) mg/dL Total Protein (6.4-8.2) g/dL Albumin (3.4-5.0) g/dL Globulin (2.6-4.0) g/dL Albumin/Globulin Ratio (0.9-1.6) Urine Color YELLOW Urine Appearance SLT CLOUDY Urine pH 5.5 (5.0-8.0) Ur Specific [place] >= 1.030 (1.001-1.035) Urine Protein 100 H (NEGATIVE) mg/dL Urine Glucose (UA) NEGATIVE (NEGATIVE) mg/dL Urine Ketones NEGATIVE (NEGATIVE) mg/dL Urine Occult Blood MODERATE H (NEGATIVE) Urine Nitrite NEGATIVE (NEGATIVE) Urine Bilirubin NEGATIVE (NEGATIVE) Urine Urobilinogen 0.2 (<2.0) EU/dL Ur Leukocyte Esterase NEGATIVE (NEGATIVE) Urine RBC 0-1 (0-2/HPF) Urine WBC 0-2 (0-5/HPF) Ur Epithelial Cells RARE (NONE-FEW) Urine Bacteria 1+ H (NEGATIVE) Urine Mucus LIGHT (NONE-MOD) 05/02/21 05/02/21 Range/Units 06:44 06:44 WBC 148.42 H (4.0-11.0) K/uL RBC 3.23 L (4.50-5.90) M/uL Hgb 10.3 L (13.0-17.0) g/dL Hct 32.3 L (38.0-50.0) % MCV 100.0 H (80.0-98.0) fL MCH 31.9 (27.0-32.0) pg MCHC 31.9 (31.0-37.0) g/dL RDW Std Deviation 52.9 (28.0-62.0) fl RDW Coeff of Jarod 15 (11.0-15.0) % Plt Count 64 L (150-400) K/uL MPV 11.40 (7.40-12.00) fL Add Manual Diff YES Neutrophils % (Manual) 3 L (48.0-80.0) % Band Neutrophils % 3 % Lymphocytes % (Manual) 94 H (16.0-40.0) % Nucleated RBC % 0.0 /100WBC Absolute Seg Neuts 4.5 (1.4-5.7) Band Neutrophils # 4.5 Lymphocytes # (Manual) 139.5 H (0.6-2.4) Nucleated RBCs # 0 K/uL D-Dimer, Quantitative (0.0-0.50) mg/L FEU Sodium 136 (136-148) mmol/L Potassium 4.5 (3.5-5.1) mmol/L Chloride 104 (98-107) mmol/L Carbon Dioxide 22.6 (21.0-32.0) mmol/L BUN 29 H (7.0-18.0) mg/dL Creatinine 1.3 (0.8-1.3) mg/dL Est Cr Clr Drug Dosing 42.28 mL/min Estimated GFR (MDRD) 52.0 ml/min Glucose 175 H (74-106) mg/dL Lactic Acid (0.4-2.0) mmol/L Calcium 7.2 L (8.5-10.1) mg/dL Total Bilirubin (0.2-1.0) mg/dL Direct Bilirubin (0.0-0.5) mg/dL AST (15-37) IU/L ALT (14-63) IU/L Alkaline Phosphatase (46-116) U/L C-Reactive Protein (0.00-0.90) mg/dL Total Protein (6.4-8.2) g/dL Albumin (3.4-5.0) g/dL Globulin (2.6-4.0) g/dL Albumin/Globulin Ratio (0.9-1.6) Urine Color Urine Appearance Urine pH (5.0-8.0) Ur Specific [place] (1.001-1.035) Urine Protein (NEGATIVE) mg/dL Urine Glucose (UA) (NEGATIVE) mg/dL Urine Ketones (NEGATIVE) mg/dL Urine Occult Blood (NEGATIVE) Urine Nitrite (NEGATIVE) Urine Bilirubin (NEGATIVE) Urine Urobilinogen (<2.0) EU/dL Ur Leukocyte Esterase (NEGATIVE) Urine RBC (0-2/HPF) Urine WBC (0-5/HPF) Ur Epithelial Cells (NONE-FEW) Urine Bacteria (NEGATIVE) Urine Mucus (NONE-MOD) [facility] Results Last 24 Hours: Microbiology 05/01/21 09:29 Aerobic Blood Culture - Preliminary Blood - Venous - Lab Draw NO GROWTH AFTER 1 DAY Anaerobic Blood Culture - Final 05/01/21 09:23 Aerobic Blood Culture - Preliminary Blood - Venous NO GROWTH AFTER 1 DAY Anaerobic Blood Culture - Preliminary NO GROWTH AFTER 1 DAY Med Orders - Current: Current Medications Acetaminophen (Acetaminophen 325 Mg Tab) 650 mg PO Q4H PRN PRN Reason: Pain (Mild 1-3)/fever Albuterol (Albuterol 0.083% 2.5 Mg/3 Ml Neb Soln) 2.5 mg NEB Q2H PRN PRN Reason: Shortness Of Breath/wheezing Albuterol/Ipratropium (Albuterol/Ipratropium 3.0-0.5 Mg/3 Ml Neb Soln) 3 ml NEB Q4HRRT [facility] Last Admin: 05/02/21 09:23 Dose: 3 ml Documented by: Aspirin (Aspirin 81 Mg Tab.Ec) 81 mg PO DAILY [facility] Last Admin: 05/02/21 09:22 Dose: 81 mg Documented by: Dexamethasone (Dexamethasone 4 Mg Tab) 6 mg PO DAILY [facility] Stop: 05/11/21 09:01 Last Admin: 05/02/21 09:23 Dose: 6 mg Documented by: Docusate Sodium (Docusate Sodium 100 Mg Cap) 100 mg PO BID PRN PRN Reason: Constipation Enoxaparin Sodium (Enoxaparin 40 Mg/0.4 Ml Syringe) 40 mg SUBCUT DAILY@2100 [facility] Last Admin: 05/01/21 21:31 Dose: 40 mg Documented by: Gabapentin (Gabapentin 300 Mg Cap) 600 mg PO QID [facility] Last Admin: 05/02/21 09:22 Dose: 600 mg Documented by: Remdesivir 100 mg/ Sodium (Chloride) 100 mls @ 100 mls/hr IV Q24H [facility] Stop: 05/05/21 21:59 Levothyroxine Sodium (Levothyroxine 50 Mcg Tab) 50 mcg PO DAILY@0700 [facility] Last Admin: 05/02/21 06:12 Dose: 50 mcg Documented by: Ondansetron HCl (Ondansetron 4 Mg Tab.Dis) 4 mg PO Q4H PRN PRN Reason: nausea, able to take PO Oxycodone HCl (Oxycodone 5 Mg Tab) 5 mg PO Q4H PRN PRN Reason: Pain (moderate 4-6) Duloxetine [address] (Capsule) 1 each PO BID [facility] Discontinued Medications Dexamethasone (Dexamethasone 10 Mg/Ml Sdv) 6 mg IVPUSH ONETIME ONE Stop: 05/01/21 09:29 Last Admin: 05/01/21 09:44 Dose: 6 mg Documented by: Gabapentin (Gabapentin 100 Mg Cap) 400 mg PO Q6HR [facility] Last Admin: 05/01/21 20:42 Dose: Not Given Documented by: Gabapentin (Gabapentin 800 Mg Tab) 800 mg PO BEDTIME [facility] Last Admin: 05/01/21 21:00 Dose: 800 mg Documented by: Gabapentin (Gabapentin 100 Mg Cap) 600 mg PO BID [facility] Ceftriaxone Sodium/Dextrose 1 (gm/ Premix) 50 mls @ 100 mls/hr IV ONETIME ONE Stop: 05/01/21 09:23 Last Admin: 05/01/21 09:44 Dose: 100 mls/hr Documented by: Vancomycin HCl 1.25 gm/ Premix 250 mls @ 166.667 mls/hr IV ONETIME ONE Stop: 05/01/21 10:44 Last Admin: 05/01/21 09:48 Dose: 166.667 mls/hr Documented by: Sodium Chloride (Normal Saline) 1,000 mls @ 999 mls/hr IV .Bolus ONE Stop: 05/01/21 11:20 Last Admin: 05/01/21 10:23 Dose: 999 mls/hr Documented by: Sodium Chloride (Normal Saline) 1,000 mls @ 999 mls/hr IV .Bolus ONE Stop: 05/01/21 11:20 Last Admin: 05/01/21 10:24 Dose: 999 mls/hr Documented by: Remdesivir 200 mg/ Sodium (Chloride) 250 mls @ 250 mls/hr IV ONETIME ONE Stop: 05/01/21 21:59 Last Admin: 05/01/21 21:31 Dose: 250 mls/hr Documented by: Non-Formulary Medication (Duloxetine) 20 mg PO DAILY [facility] Last Admin: 05/01/21 20:42 Dose: Not Given Documented by: Vancomycin HCl (Pharmacy To Dose - Vancomycin) 1 dose .XX ONETIME ONE Stop: 05/01/21 08:55 Last Admin: 05/01/21 09:56 Dose: Not Given Documented by: - Exam General: Alert, Oriented, Cooperative HEENT: Mucous Membr. Moist/[place] Neck: Trachea Midline Lungs: Wheezing Cardiovascular: Regular Rate, Regular Rhythm GI/Abdominal Exam: Normal Bowel Sounds, Soft, Non-Tender - Patient Data Lab Results Last 24 hrs: Laboratory Results - last 24 hr 05/01/21 05/01/21 05/01/21 Range/Units 09:23 09:23 09:23 WBC (4.0-11.0) K/uL RBC (4.50-5.90) M/uL Hgb (13.0-17.0) g/dL Hct (38.0-50.0) % MCV (80.0-98.0) fL MCH (27.0-32.0) pg MCHC (31.0-37.0) g/dL RDW Std Deviation (28.0-62.0) fl RDW Coeff of Jarod (11.0-15.0) % Plt Count (150-400) K/uL MPV (7.40-12.00) fL Add Manual Diff Neutrophils % (Manual) (48.0-80.0) % Band Neutrophils % % Lymphocytes % (Manual) (16.0-40.0) % Nucleated RBC % /100WBC Absolute Seg Neuts (1.4-5.7) Band Neutrophils # Lymphocytes # (Manual) (0.6-2.4) Nucleated RBCs # K/uL D-Dimer, Quantitative (0.0-0.50) mg/L FEU Sodium 134 L (136-148) mmol/L Potassium 5.0 (3.5-5.1) mmol/L Chloride 101 (98-107) mmol/L Carbon Dioxide 23.8 (21.0-32.0) mmol/L BUN 32 H (7.0-18.0) mg/dL Creatinine 1.8 H (0.8-1.3) mg/dL Est Cr Clr Drug Dosing 30.54 mL/min Estimated GFR (MDRD) 35.7 ml/min Glucose 195 H (74-106) mg/dL Lactic Acid 3.2 H* (0.4-2.0) mmol/L Calcium 7.8 L (8.5-10.1) mg/dL Total Bilirubin 0.5 (0.2-1.0) mg/dL Direct Bilirubin 0.20 (0.0-0.5) mg/dL AST 89 H (15-37) IU/L ALT 67 H (14-63) IU/L Alkaline Phosphatase 102 (46-116) U/L C-Reactive Protein 14.10 H (0.00-0.90) mg/dL Total Protein 5.9 L (6.4-8.2) g/dL Albumin 2.7 L (3.4-5.0) g/dL Globulin 3.2 (2.6-4.0) g/dL Albumin/Globulin Ratio 0.8 L (0.9-1.6) Urine Color Urine Appearance Urine pH (5.0-8.0) Ur Specific [place] (1.001-1.035) Urine Protein (NEGATIVE) mg/dL Urine Glucose (UA) (NEGATIVE) mg/dL Urine Ketones (NEGATIVE) mg/dL Urine Occult Blood (NEGATIVE) Urine Nitrite (NEGATIVE) Urine Bilirubin (NEGATIVE) Urine Urobilinogen (<2.0) EU/dL Ur Leukocyte Esterase (NEGATIVE) Urine RBC (0-2/HPF) Urine WBC (0-5/HPF) Ur Epithelial Cells (NONE-FEW) Urine Bacteria (NEGATIVE) Urine Mucus (NONE-MOD) 05/01/21 05/01/21 05/01/21 Range/Units 14:36 20:19 20:37 WBC (4.0-11.0) K/uL RBC (4.50-5.90) M/uL Hgb (13.0-17.0) g/dL Hct (38.0-50.0) % MCV (80.0-98.0) fL MCH (27.0-32.0) pg MCHC (31.0-37.0) g/dL RDW Std Deviation (28.0-62.0) fl RDW Coeff of Jarod (11.0-15.0) % Plt Count (150-400) K/uL MPV (7.40-12.00) fL Add Manual Diff Neutrophils % (Manual) (48.0-80.0) % Band Neutrophils % % Lymphocytes % (Manual) (16.0-40.0) % Nucleated RBC % /100WBC Absolute Seg Neuts (1.4-5.7) Band Neutrophils # Lymphocytes # (Manual) (0.6-2.4) Nucleated RBCs # K/uL D-Dimer, Quantitative 1.61 H (0.0-0.50) mg/L FEU Sodium (136-148) mmol/L Potassium (3.5-5.1) mmol/L Chloride (98-107) mmol/L Carbon Dioxide (21.0-32.0) mmol/L BUN (7.0-18.0) mg/dL Creatinine (0.8-1.3) mg/dL Est Cr Clr Drug Dosing mL/min Estimated GFR (MDRD) ml/min Glucose (74-106) mg/dL Lactic Acid 1.2 (0.4-2.0) mmol/L Calcium (8.5-10.1) mg/dL Total Bilirubin (0.2-1.0) mg/dL Direct Bilirubin (0.0-0.5) mg/dL AST (15-37) IU/L ALT (14-63) IU/L Alkaline Phosphatase (46-116) U/L C-Reactive Protein (0.00-0.90) mg/dL Total Protein (6.4-8.2) g/dL Albumin (3.4-5.0) g/dL Globulin (2.6-4.0) g/dL Albumin/Globulin Ratio (0.9-1.6) Urine Color YELLOW Urine Appearance SLT CLOUDY Urine pH 5.5 (5.0-8.0) Ur Specific [place] >= 1.030 (1.001-1.035) Urine Protein 100 H (NEGATIVE) mg/dL Urine Glucose (UA) NEGATIVE (NEGATIVE) mg/dL Urine Ketones NEGATIVE (NEGATIVE) mg/dL Urine Occult Blood MODERATE H (NEGATIVE) Urine Nitrite NEGATIVE (NEGATIVE) Urine Bilirubin NEGATIVE (NEGATIVE) Urine Urobilinogen 0.2 (<2.0) EU/dL Ur Leukocyte Esterase NEGATIVE (NEGATIVE) Urine RBC 0-1 (0-2/HPF) Urine WBC 0-2 (0-5/HPF) Ur Epithelial Cells RARE (NONE-FEW) Urine Bacteria 1+ H (NEGATIVE) Urine Mucus LIGHT (NONE-MOD) 05/02/21 05/02/21 Range/Units 06:44 06:44 WBC 148.42 H (4.0-11.0) K/uL RBC 3.23 L (4.50-5.90) M/uL Hgb 10.3 L (13.0-17.0) g/dL Hct 32.3 L (38.0-50.0) % MCV 100.0 H (80.0-98.0) fL MCH 31.9 (27.0-32.0) pg MCHC 31.9 (31.0-37.0) g/dL RDW Std Deviation 52.9 (28.0-62.0) fl RDW Coeff of Jarod 15 (11.0-15.0) % Plt Count 64 L (150-400) K/uL MPV 11.40 (7.40-12.00) fL Add Manual Diff YES Neutrophils % (Manual) 3 L (48.0-80.0) % Band Neutrophils % 3 % Lymphocytes % (Manual) 94 H (16.0-40.0) % Nucleated RBC % 0.0 /100WBC Absolute Seg Neuts 4.5 (1.4-5.7) Band Neutrophils # 4.5 Lymphocytes # (Manual) 139.5 H (0.6-2.4) Nucleated RBCs # 0 K/uL D-Dimer, Quantitative (0.0-0.50) mg/L FEU Sodium 136 (136-148) mmol/L Potassium 4.5 (3.5-5.1) mmol/L Chloride 104 (98-107) mmol/L Carbon Dioxide 22.6 (21.0-32.0) mmol/L BUN 29 H (7.0-18.0) mg/dL Creatinine 1.3 (0.8-1.3) mg/dL Est Cr Clr Drug Dosing 42.28 mL/min Estimated GFR (MDRD) 52.0 ml/min Glucose 175 H (74-106) mg/dL Lactic Acid (0.4-2.0) mmol/L Calcium 7.2 L (8.5-10.1) mg/dL Total Bilirubin (0.2-1.0) mg/dL Direct Bilirubin (0.0-0.5) mg/dL AST (15-37) IU/L ALT (14-63) IU/L Alkaline Phosphatase (46-116) U/L C-Reactive Protein (0.00-0.90) mg/dL Total Protein (6.4-8.2) g/dL Albumin (3.4-5.0) g/dL Globulin (2.6-4.0) g/dL Albumin/Globulin Ratio (0.9-1.6) Urine Color Urine Appearance Urine pH (5.0-8.0) Ur Specific [place] (1.001-1.035) Urine Protein (NEGATIVE) mg/dL Urine Glucose (UA) (NEGATIVE) mg/dL Urine Ketones (NEGATIVE) mg/dL Urine Occult Blood (NEGATIVE) Urine Nitrite (NEGATIVE) Urine Bilirubin (NEGATIVE) Urine Urobilinogen (<2.0) EU/dL Ur Leukocyte Esterase (NEGATIVE) Urine RBC (0-2/HPF) Urine WBC (0-5/HPF) Ur Epithelial Cells (NONE-FEW) Urine Bacteria (NEGATIVE) Urine Mucus (NONE-MOD) Result Diagrams: 05/02/21 06:44 05/02/21 06:44 [facility] Results Last 24 hrs: Microbiology 05/01/21 09:29 Aerobic Blood Culture - Preliminary Blood - Venous - Lab Draw NO GROWTH AFTER 1 DAY Anaerobic Blood Culture - Final 05/01/21 09:23 Aerobic Blood Culture - Preliminary Blood - Venous NO GROWTH AFTER 1 DAY Anaerobic Blood Culture - Preliminary NO GROWTH AFTER 1 DAY Sepsis Event Note - Evaluation Sepsis Screening Result: Possible Sepsis Risk - Focused Exam Vital Signs: Vital Signs Temp Pulse Resp BP Pulse Ox 05/02/21 09:00 96.6 F L 80 20 137/63 93 L 05/02/21 06:12 73 20 98 05/02/21 03:08 97.0 F 77 22 H 123/74 95 05/02/21 00:25 96.8 F L 74 24 H 121/60 97 - Problem List & Annotations (1) Hypothyroid SNOMED Code(s): 62944732 Code(s): E03.9 - HYPOTHYROIDISM, UNSPECIFIED Status: Acute Current Visit: Yes (2) Positive blood culture SNOMED Code(s): 499049023 Code(s): R78.81 - BACTEREMIA Status: Acute Current Visit: Yes (3) Acute respiratory failure due to COVID-19 SNOMED Code(s): 573975980 Code(s): U07.1 - COVID-19; J96.00 - ACUTE RESPIRATORY FAILURE, UNSP W HYPOXIA OR HYPERCAPNIA Status: Acute Current Visit: Yes (4) COVID-19 SNOMED Code(s): 792439077 Code(s): U07.1 - COVID-19 Status: Acute Current Visit: Yes - Problem List Review Problem List Initiated/Reviewed/Updated: Yes - My Orders Last 24 Hours: My Active Orders 05/03/21 05:11 CBC WITH AUTO DIFF [HEME] AM CMP [COMPREHENSIVE METABOLIC PN,CMP] [CHEM] AM 05/04/21 05:11 CBC WITH AUTO DIFF [HEME] AM CMP [COMPREHENSIVE METABOLIC PN,CMP] [CHEM] AM 05/05/21 05:11 CBC WITH AUTO DIFF [HEME] AM CMP [COMPREHENSIVE METABOLIC PN,CMP] [CHEM] AM 05/06/21 05:11 CBC WITH AUTO DIFF [HEME] AM CMP [COMPREHENSIVE METABOLIC PN,CMP] [CHEM] AM 05/07/21 05:11 CBC WITH AUTO DIFF [HEME] AM CMP [COMPREHENSIVE METABOLIC PN,CMP] [CHEM] AM - Assessment Assessment:: 1. COVID-19 pneumonia -Continue with dexamethasone 6 mg per oral route once a day -Continue with remdesivir per IV route -Continue with duo nebulizer treatments for shortness of breath -Zofran is on board for any vomiting -Continue to supply oxygen as needed 2. Positive blood cultures -Initial blood cultures were positive but may be a contaminant, we will repeat blood cultures -In the ED antibiotics were given as a one-time dosage, we will continue to hold off with antibiotic treatment until blood cultures confirm true bacteremia 3. Hypothyroidism -Continue patient's levothyroxine 50 mcg per oral route <Rolando Dominguez - Last Filed: 05/02/21 10:49> - Patient Data Vitals - Most Recent: Last Vital Signs Temp 96.6 F L 05/02/21 09:00 Pulse 80 05/02/21 09:00 Resp 20 05/02/21 09:00 BP 137/63 05/02/21 09:00 Pulse Ox 93 L 05/02/21 09:00 Lab Results Last 24 Hours: Laboratory Results - last 24 hr 05/01/21 05/01/21 05/01/21 Range/Units 09:23 14:36 20:19 WBC (4.0-11.0) K/uL RBC (4.50-5.90) M/uL Hgb (13.0-17.0) g/dL Hct (38.0-50.0) % MCV (80.0-98.0) fL MCH (27.0-32.0) pg MCHC (31.0-37.0) g/dL RDW Std Deviation (28.0-62.0) fl RDW Coeff of Jarod (11.0-15.0) % Plt Count (150-400) K/uL MPV (7.40-12.00) fL Add Manual Diff Neutrophils % (Manual) (48.0-80.0) % Band Neutrophils % % Lymphocytes % (Manual) (16.0-40.0) % Nucleated RBC % /100WBC Absolute Seg Neuts (1.4-5.7) Band Neutrophils # Lymphocytes # (Manual) (0.6-2.4) Nucleated RBCs # K/uL D-Dimer, Quantitative (0.0-0.50) mg/L FEU Sodium (136-148) mmol/L Potassium (3.5-5.1) mmol/L Chloride (98-107) mmol/L Carbon Dioxide (21.0-32.0) mmol/L BUN (7.0-18.0) mg/dL Creatinine (0.8-1.3) mg/dL Est Cr Clr Drug Dosing mL/min Estimated GFR (MDRD) ml/min Glucose (74-106) mg/dL Lactic Acid 1.2 (0.4-2.0) mmol/L Calcium (8.5-10.1) mg/dL Direct Bilirubin 0.20 (0.0-0.5) mg/dL Urine Color YELLOW Urine Appearance SLT CLOUDY Urine pH 5.5 (5.0-8.0) Ur Specific [place] >= 1.030 (1.001-1.035) Urine Protein 100 H (NEGATIVE) mg/dL Urine Glucose (UA) NEGATIVE (NEGATIVE) mg/dL Urine Ketones NEGATIVE (NEGATIVE) mg/dL Urine Occult Blood MODERATE H (NEGATIVE) Urine Nitrite NEGATIVE (NEGATIVE) Urine Bilirubin NEGATIVE (NEGATIVE) Urine Urobilinogen 0.2 (<2.0) EU/dL Ur Leukocyte Esterase NEGATIVE (NEGATIVE) Urine RBC 0-1 (0-2/HPF) Urine WBC 0-2 (0-5/HPF) Ur Epithelial Cells RARE (NONE-FEW) Urine Bacteria 1+ H (NEGATIVE) Urine Mucus LIGHT (NONE-MOD) 05/01/21 05/02/21 05/02/21 Range/Units 20:37 06:44 06:44 WBC 148.42 H (4.0-11.0) K/uL RBC 3.23 L (4.50-5.90) M/uL Hgb 10.3 L (13.0-17.0) g/dL Hct 32.3 L (38.0-50.0) % MCV 100.0 H (80.0-98.0) fL MCH 31.9 (27.0-32.0) pg MCHC 31.9 (31.0-37.0) g/dL RDW Std Deviation 52.9 (28.0-62.0) fl RDW Coeff of Jarod 15 (11.0-15.0) % Plt Count 64 L (150-400) K/uL MPV 11.40 (7.40-12.00) fL Add Manual Diff YES Neutrophils % (Manual) 3 L (48.0-80.0) % Band Neutrophils % 3 % Lymphocytes % (Manual) 94 H (16.0-40.0) % Nucleated RBC % 0.0 /100WBC Absolute Seg Neuts 4.5 (1.4-5.7) Band Neutrophils # 4.5 Lymphocytes # (Manual) 139.5 H (0.6-2.4) Nucleated RBCs # 0 K/uL D-Dimer, Quantitative 1.61 H (0.0-0.50) mg/L FEU Sodium 136 (136-148) mmol/L Potassium 4.5 (3.5-5.1) mmol/L Chloride 104 (98-107) mmol/L Carbon Dioxide 22.6 (21.0-32.0) mmol/L BUN 29 H (7.0-18.0) mg/dL Creatinine 1.3 (0.8-1.3) mg/dL Est Cr Clr Drug Dosing 42.28 mL/min Estimated GFR (MDRD) 52.0 ml/min Glucose 175 H (74-106) mg/dL Lactic Acid (0.4-2.0) mmol/L Calcium 7.2 L (8.5-10.1) mg/dL Direct Bilirubin (0.0-0.5) mg/dL Urine Color Urine Appearance Urine pH (5.0-8.0) Ur Specific [place] (1.001-1.035) Urine Protein (NEGATIVE) mg/dL Urine Glucose (UA) (NEGATIVE) mg/dL Urine Ketones (NEGATIVE) mg/dL Urine Occult Blood (NEGATIVE) Urine Nitrite (NEGATIVE) Urine Bilirubin (NEGATIVE) Urine Urobilinogen (<2.0) EU/dL Ur Leukocyte Esterase (NEGATIVE) Urine RBC (0-2/HPF) Urine WBC (0-5/HPF) Ur Epithelial Cells (NONE-FEW) Urine Bacteria (NEGATIVE) Urine Mucus (NONE-MOD) [facility] Results Last 24 Hours: Microbiology 05/01/21 09:29 Aerobic Blood Culture - Preliminary Blood - Venous - Lab Draw NO GROWTH AFTER 1 DAY Anaerobic Blood Culture - Final 05/01/21 09:23 Aerobic Blood Culture - Preliminary Blood - Venous NO GROWTH AFTER 1 DAY Anaerobic Blood Culture - Preliminary NO GROWTH AFTER 1 DAY Med Orders - Current: Current Medications Acetaminophen (Acetaminophen 325 Mg Tab) 650 mg PO Q4H PRN PRN Reason: Pain (Mild 1-3)/fever Albuterol (Albuterol 0.083% 2.5 Mg/3 Ml Neb Soln) 2.5 mg NEB Q2H PRN PRN Reason: Shortness Of Breath/wheezing Albuterol/Ipratropium (Albuterol/Ipratropium 3.0-0.5 Mg/3 Ml Neb Soln) 3 ml NEB Q4HRRT [facility] Last Admin: 05/02/21 09:23 Dose: 3 ml Documented by: Aspirin (Aspirin 81 Mg Tab.Ec) 81 mg PO DAILY [facility] Last Admin: 05/02/21 09:22 Dose: 81 mg Documented by: Dexamethasone (Dexamethasone 4 Mg Tab) 6 mg PO DAILY [facility] Stop: 05/11/21 09:01 Last Admin: 05/02/21 09:23 Dose: 6 mg Documented by: Docusate Sodium (Docusate Sodium 100 Mg Cap) 100 mg PO BID PRN PRN Reason: Constipation Enoxaparin Sodium (Enoxaparin 40 Mg/0.4 Ml Syringe) 40 mg SUBCUT DAILY@2100 [facility] Last Admin: 05/01/21 21:31 Dose: 40 mg Documented by: Gabapentin (Gabapentin 300 Mg Cap) 1,200 mg PO BID [facility] Remdesivir 100 mg/ Sodium (Chloride) 100 mls @ 100 mls/hr IV Q24H [facility] Stop: 05/05/21 21:59 Levothyroxine Sodium (Levothyroxine 50 Mcg Tab) 50 mcg PO DAILY@0700 [facility] Last Admin: 05/02/21 06:12 Dose: 50 mcg Documented by: Ondansetron HCl (Ondansetron 4 Mg Tab.Dis) 4 mg PO Q4H PRN PRN Reason: nausea, able to take PO Oxycodone HCl (Oxycodone 5 Mg Tab) 5 mg PO Q4H PRN PRN Reason: Pain (moderate 4-6) Duloxetine [address] (Capsule) 1 each PO BID [facility] Discontinued Medications Dexamethasone (Dexamethasone 10 Mg/Ml Sdv) 6 mg IVPUSH ONETIME ONE Stop: 05/01/21 09:29 Last Admin: 05/01/21 09:44 Dose: 6 mg Documented by: Gabapentin (Gabapentin 100 Mg Cap) 400 mg PO Q6HR [facility] Last Admin: 05/01/21 20:42 Dose: Not Given Documented by: Gabapentin (Gabapentin 800 Mg Tab) 800 mg PO BEDTIME [facility] Last Admin: 05/01/21 21:00 Dose: 800 mg Documented by: Gabapentin (Gabapentin 100 Mg Cap) 600 mg PO BID [facility] Gabapentin (Gabapentin 300 Mg Cap) 600 mg PO QID [facility] Last Admin: 05/02/21 09:22 Dose: 600 mg Documented by: Gabapentin (Gabapentin 300 Mg Cap) 600 mg PO ONETIME ONE Stop: 05/02/21 10:31 Ceftriaxone Sodium/Dextrose 1 (gm/ Premix) 50 mls @ 100 mls/hr IV ONETIME ONE Stop: 05/01/21 09:23 Last Admin: 05/01/21 09:44 Dose: 100 mls/hr Documented by: Vancomycin HCl 1.25 gm/ Premix 250 mls @ 166.667 mls/hr IV ONETIME ONE Stop: 05/01/21 10:44 Last Admin: 05/01/21 09:48 Dose: 166.667 mls/hr Documented by: Sodium Chloride (Normal Saline) 1,000 mls @ 999 mls/hr IV .Bolus ONE Stop: 05/01/21 11:20 Last Admin: 05/01/21 10:23 Dose: 999 mls/hr Documented by: Sodium Chloride (Normal Saline) 1,000 mls @ 999 mls/hr IV .Bolus ONE Stop: 05/01/21 11:20 Last Admin: 05/01/21 10:24 Dose: 999 mls/hr Documented by: Remdesivir 200 mg/ Sodium (Chloride) 250 mls @ 250 mls/hr IV ONETIME ONE Stop: 05/01/21 21:59 Last Admin: 05/01/21 21:31 Dose: 250 mls/hr Documented by: Non-Formulary Medication (Duloxetine) 20 mg PO DAILY DAIVD Last Admin: 05/01/21 20:42 Dose: Not Given Documented by: Vancomycin HCl (Pharmacy To Dose - Vancomycin) 1 dose .XX ONETIME ONE Stop: 05/01/21 08:55 Last Admin: 05/01/21 09:56 Dose: Not Given Documented by: - Patient Data Lab Results Last 24 hrs: Laboratory Results - last 24 hr 05/01/21 05/01/21 05/01/21 Range/Units 09:23 14:36 20:19 WBC (4.0-11.0) K/uL RBC (4.50-5.90) M/uL Hgb (13.0-17.0) g/dL Hct (38.0-50.0) % MCV (80.0-98.0) fL MCH (27.0-32.0) pg MCHC (31.0-37.0) g/dL RDW Std Deviation (28.0-62.0) fl RDW Coeff of Jarod (11.0-15.0) % Plt Count (150-400) K/uL MPV (7.40-12.00) fL Add Manual Diff Neutrophils % (Manual) (48.0-80.0) % Band Neutrophils % % Lymphocytes % (Manual) (16.0-40.0) % Nucleated RBC % /100WBC Absolute Seg Neuts (1.4-5.7) Band Neutrophils # Lymphocytes # (Manual) (0.6-2.4) Nucleated RBCs # K/uL D-Dimer, Quantitative (0.0-0.50) mg/L FEU Sodium (136-148) mmol/L Potassium (3.5-5.1) mmol/L Chloride (98-107) mmol/L Carbon Dioxide (21.0-32.0) mmol/L BUN (7.0-18.0) mg/dL Creatinine (0.8-1.3) mg/dL Est Cr Clr Drug Dosing mL/min Estimated GFR (MDRD) ml/min Glucose (74-106) mg/dL Lactic Acid 1.2 (0.4-2.0) mmol/L Calcium (8.5-10.1) mg/dL Direct Bilirubin 0.20 (0.0-0.5) mg/dL Urine Color YELLOW Urine Appearance SLT CLOUDY Urine pH 5.5 (5.0-8.0) Ur Specific [place] >= 1.030 (1.001-1.035) Urine Protein 100 H (NEGATIVE) mg/dL Urine Glucose (UA) NEGATIVE (NEGATIVE) mg/dL Urine Ketones NEGATIVE (NEGATIVE) mg/dL Urine Occult Blood MODERATE H (NEGATIVE) Urine Nitrite NEGATIVE (NEGATIVE) Urine Bilirubin NEGATIVE (NEGATIVE) Urine Urobilinogen 0.2 (<2.0) EU/dL Ur Leukocyte Esterase NEGATIVE (NEGATIVE) Urine RBC 0-1 (0-2/HPF) Urine WBC 0-2 (0-5/HPF) Ur Epithelial Cells RARE (NONE-FEW) Urine Bacteria 1+ H (NEGATIVE) Urine Mucus LIGHT (NONE-MOD) 05/01/21 05/02/21 05/02/21 Range/Units 20:37 06:44 06:44 WBC 148.42 H (4.0-11.0) K/uL RBC 3.23 L (4.50-5.90) M/uL Hgb 10.3 L (13.0-17.0) g/dL Hct 32.3 L (38.0-50.0) % MCV 100.0 H (80.0-98.0) fL MCH 31.9 (27.0-32.0) pg MCHC 31.9 (31.0-37.0) g/dL RDW Std Deviation 52.9 (28.0-62.0) fl RDW Coeff of Jarod 15 (11.0-15.0) % Plt Count 64 L (150-400) K/uL MPV 11.40 (7.40-12.00) fL Add Manual Diff YES Neutrophils % (Manual) 3 L (48.0-80.0) % Band Neutrophils % 3 % Lymphocytes % (Manual) 94 H (16.0-40.0) % Nucleated RBC % 0.0 /100WBC Absolute Seg Neuts 4.5 (1.4-5.7) Band Neutrophils # 4.5 Lymphocytes # (Manual) 139.5 H (0.6-2.4) Nucleated RBCs # 0 K/uL D-Dimer, Quantitative 1.61 H (0.0-0.50) mg/L FEU Sodium 136 (136-148) mmol/L Potassium 4.5 (3.5-5.1) mmol/L Chloride 104 (98-107) mmol/L Carbon Dioxide 22.6 (21.0-32.0) mmol/L BUN 29 H (7.0-18.0) mg/dL Creatinine 1.3 (0.8-1.3) mg/dL Est Cr Clr Drug Dosing 42.28 mL/min Estimated GFR (MDRD) 52.0 ml/min Glucose 175 H (74-106) mg/dL Lactic Acid (0.4-2.0) mmol/L Calcium 7.2 L (8.5-10.1) mg/dL Direct Bilirubin (0.0-0.5) mg/dL Urine Color Urine Appearance Urine pH (5.0-8.0) Ur Specific [place] (1.001-1.035) Urine Protein (NEGATIVE) mg/dL Urine Glucose (UA) (NEGATIVE) mg/dL Urine Ketones (NEGATIVE) mg/dL Urine Occult Blood (NEGATIVE) Urine Nitrite (NEGATIVE) Urine Bilirubin (NEGATIVE) Urine Urobilinogen (<2.0) EU/dL Ur Leukocyte Esterase (NEGATIVE) Urine RBC (0-2/HPF) Urine WBC (0-5/HPF) Ur Epithelial Cells (NONE-FEW) Urine Bacteria (NEGATIVE) Urine Mucus (NONE-MOD) Result Diagrams: 05/02/21 06:44 05/02/21 06:44 Mejia Results Last 24 hrs: Microbiology 05/01/21 09:29 Aerobic Blood Culture - Preliminary Blood - Venous - Lab Draw NO GROWTH AFTER 1 DAY Anaerobic Blood Culture - Final 05/01/21 09:23 Aerobic Blood Culture - Preliminary Blood - Venous NO GROWTH AFTER 1 DAY Anaerobic Blood Culture - Preliminary NO GROWTH AFTER 1 DAY Sepsis Event Note - Focused Exam Vital Signs: Vital Signs Temp Pulse Resp BP Pulse Ox 05/02/21 09:00 96.6 F L 80 20 137/63 93 L 05/02/21 06:12 73 20 98 05/02/21 03:08 97.0 F 77 22 H 123/74 95 05/02/21 00:25 96.8 F L 74 24 H 121/60 97 - Problem List & Annotations (1) Acute respiratory failure due to COVID-19 SNOMED Code(s): 215827393 Code(s): U07.1 - COVID-19; J96.00 - ACUTE RESPIRATORY FAILURE, UNSP W HYPOXIA OR HYPERCAPNIA Status: Acute Current Visit: Yes (2) COVID-19 SNOMED Code(s): 068940757 Code(s): U07.1 - COVID-19 Status: Acute Current Visit: Yes (3) Dehydration SNOMED Code(s): 26964611 Code(s): E86.0 - DEHYDRATION Status: Acute Current Visit: No - My Orders Last 24 Hours: My Active Orders 05/01/21 10:53 Resuscitation Status Routine 05/01/21 Lunch Regular Diet [DIET] 05/01/21 13:57 Oxygen Therapy [RC] PRN RT Aerosol Therapy [RC] ASDIRECTED Up ad Fanny [RC] ASDIRECTED VTE/DVT Education [RC] PER UNIT ROUTINE Vital Signs [RC] Q4H OT Evaluation and Treatment [CONS] Routine PT Evaluation and Treatment [CONS] Routine 05/01/21 14:00 Acetaminophen [TylenoL] 650 mg PO Q4H PRN Albuterol [Proventil Neb Soln] 2.5 mg NEB Q2H PRN Albuterol/Ipratropium [DuoNeb 3.0-0.5 MG/3 ML] 3 ml NEB Q4HRRT Docusate Sodium [Colace] 100 mg PO BID PRN Ondansetron [Zofran ODT] 4 mg PO Q4H PRN oxyCODONE 5 mg PO Q4H PRN 05/01/21 21:00 Enoxaparin [Lovenox] 40 mg SUBCUT DAILY@2100 05/02/21 07:00 Levothyroxine [Synthroid] 50 mcg PO DAILY@0700 05/02/21 09:00 Aspirin [Halfprin] 81 mg PO DAILY Patient's Own Medication [Ptom] 1 each PO BID dexAMETHasone 6 mg PO DAILY 05/02/21 21:00 Gabapentin [Neurontin] 1,200 mg PO BID Remdesivir 100 mg Sodium Chloride 0.9% [Normal Saline AdvBag] 100 ml IV Q24H - Assessment Assessment:: I agree with the above assessment and plan.
[2021-05-02] MEDS ORDERED: Gabapentin 300 MG Cap PO ONE (10:30)
[2021-05-02] MEDS: Enoxaparin 40 MG/0.4 ML Syringe SUBCUT SCH (20:36)
[2021-05-02] MEDS: REMDESIVIR 100 MG in Sodium Chloride 0.9% 100 ML IV SCH (20:36)
[2021-05-03] MEDS: Albuterol/Ipratropium 3.0-0.5 MG/3 ML Neb Soln NEB SCH ×6 (02:20→21:52)
[2021-05-03] MEDS: Levothyroxine 50 MCG Tab PO SCH (06:05)
[2021-05-03 06:54] LABS: CARBON DIOXIDE,CO2 21.9 mmol/L (21.0-32.0); POTASSIUM,K 5.6 mmol/L (3.5-5.1)
[2021-05-03] MEDS: Gabapentin 300 MG Cap PO SCH ×3 (07:32→17:29)
[2021-05-03] MEDS: Aspirin 81 MG Tab.EC PO SCH (08:39)
[2021-05-03] MEDS: Dexamethasone 4 MG Tab PO SCH (08:39)
--- NOTE | 2021-05-03 11:36 | PCM.PN ---
<Debbi Smith - Last Filed: 05/03/21 11:38> - General Info Date of Service: 05/03/21 Subjective Update: The patient is an 89-year-old male, on day 3 of service, who has a significant past medical history of CLL, a pacemaker device, neuropathy, and hypothyroidism, who was admitted to the medical floor due to COVID-19 pneumonia. Upon interview with the patient today at bedside, he admits that his cough is slightly improved and now is only productive of white sputum devoid of any blood or mucus. He continues to have shortness of breath with audible wheezing which he feels is improving. He is currently saturating 96 % on 2 L of oxygen. He continues to have an elevated white blood cell count secondary to his history of CLL. His blood cultures came back without any growth which further justifies the notion that this was a contaminant. He denies chest pain, palpitations, abdominal pain, nausea, vomiting, or any issues with urination and/or defecation. He is finishing his meals to completion and has a healthy appetite. We will continue to monitor this patient for improvements with hopes that he can be discharged in the next few days. He continues to have weakness when a mbulating and PT/OT is on board. He has no other health concerns at this time. - Review of Systems General: Reports: Weakness. Denies: Fever, Fatigue HEENT: Denies: Headaches, Sore Throat Pulmonary: Reports: Shortness of Breath, Cough, Sputum Cardiovascular: Denies: Chest Pain, Palpitations Gastrointestinal: Denies: Abdominal Pain Genitourinary: Denies: Dysuria - Patient Data Vitals - Most Recent: Last Vital Signs Temp 97.2 F 05/03/21 11:28 Pulse 72 05/03/21 11:28 Resp 17 05/03/21 11:28 BP 140/65 05/03/21 11:28 Pulse Ox 95 05/03/21 11:28 Weight - Most Recent: 180 lb I&O - Last 24 Hours: Intake & Output 05/02/21 05/03/21 05/03/21 22:59 06:59 14:59 Intake Total 1300 Balance 1300 Lab Results Last 24 Hours: Laboratory Results - last 24 hr 05/03/21 05/03/21 Range/Units 05:25 05:25 WBC 152.78 H (4.0-11.0) K/uL RBC 3.30 L (4.50-5.90) M/uL Hgb 10.7 L (13.0-17.0) g/dL Hct 32.3 L (38.0-50.0) % MCV 97.9 (80.0-98.0) fL MCH 32.4 H (27.0-32.0) pg MCHC 33.1 (31.0-37.0) g/dL RDW Std Deviation 50.6 (28.0-62.0) fl RDW Coeff of Jarod 15 (11.0-15.0) % Plt Count 72 L (150-400) K/uL MPV 11.70 (7.40-12.00) fL Add Manual Diff YES Nucleated RBC % 0.0 /100WBC Nucleated RBCs # 0 K/uL Pathologist Review Sodium 133 L (136-148) mmol/L Potassium 5.6 H (3.5-5.1) mmol/L Chloride 102 (98-107) mmol/L Carbon Dioxide 21.9 (21.0-32.0) mmol/L BUN 38 H (7.0-18.0) mg/dL Creatinine 1.3 (0.8-1.3) mg/dL Est Cr Clr Drug Dosing 42.28 mL/min Estimated GFR (MDRD) 52.0 ml/min Glucose 171 H (74-106) mg/dL Calcium 8.2 L (8.5-10.1) mg/dL Total Bilirubin 0.3 (0.2-1.0) mg/dL AST 178 H (15-37) IU/L ALT 157 H (14-63) IU/L Alkaline Phosphatase 81 (46-116) U/L Total Protein 5.4 L (6.4-8.2) g/dL Albumin 2.3 L (3.4-5.0) g/dL Globulin 3.1 (2.6-4.0) g/dL Albumin/Globulin Ratio 0.7 L (0.9-1.6) Mejia Results Last 24 Hours: Microbiology 05/01/21 09:29 Aerobic Blood Culture - Preliminary Blood - Venous - Lab Draw NO GROWTH AFTER 2 DAYS Anaerobic Blood Culture - Final 05/01/21 09:23 Aerobic Blood Culture - Preliminary Blood - Venous NO GROWTH AFTER 2 DAYS Anaerobic Blood Culture - Preliminary NO GROWTH AFTER 2 DAYS Med Orders - Current: Current Medications Acetaminophen (Acetaminophen 325 Mg Tab) 650 mg PO Q4H PRN PRN Reason: Pain (Mild 1-3)/fever Albuterol (Albuterol 0.083% 2.5 Mg/3 Ml Neb Soln) 2.5 mg NEB Q2H PRN PRN Reason: Shortness Of Breath/wheezing Albuterol/Ipratropium (Albuterol/Ipratropium 3.0-0.5 Mg/3 Ml Neb Soln) 3 ml NEB Q4HRRT [facility] Last Admin: 05/03/21 11:30 Dose: 3 ml Documented by: Aspirin (Aspirin 81 Mg Tab.Ec) 81 mg PO DAILY [facility] Last Admin: 05/03/21 08:39 Dose: 81 mg Documented by: Dexamethasone (Dexamethasone 4 Mg Tab) 6 mg PO DAILY [facility] Stop: 05/11/21 09:01 Last Admin: 05/03/21 08:39 Dose: 6 mg Documented by: Docusate Sodium (Docusate Sodium 100 Mg Cap) 100 mg PO BID PRN PRN Reason: Constipation Enoxaparin Sodium (Enoxaparin 40 Mg/0.4 Ml Syringe) 40 mg SUBCUT DAILY@2100 [facility] Last Admin: 05/02/21 20:36 Dose: 40 mg Documented by: Gabapentin (Gabapentin 300 Mg Cap) 600 mg PO QID [facility] Last Admin: 05/03/21 07:32 Dose: 600 mg Documented by: Remdesivir 100 mg/ Sodium (Chloride) 100 mls @ 100 mls/hr IV Q24H [facility] Stop: 05/05/21 21:59 Last Admin: 05/02/21 20:36 Dose: 100 mls/hr Documented by: Levothyroxine Sodium (Levothyroxine 50 Mcg Tab) 50 mcg PO DAILY@0700 [facility] Last Admin: 05/03/21 06:05 Dose: 50 mcg Documented by: Ondansetron HCl (Ondansetron 4 Mg Tab.Dis) 4 mg PO Q4H PRN PRN Reason: nausea, able to take PO Oxycodone HCl (Oxycodone 5 Mg Tab) 5 mg PO Q4H PRN PRN Reason: Pain (moderate 4-6) Duloxetine [address] (Capsule) 1 each PO BID [facility] Last Admin: 05/02/21 20:35 Dose: 1 each Documented by: Discontinued Medications Dexamethasone (Dexamethasone 10 Mg/Ml Sdv) 6 mg IVPUSH ONETIME ONE Stop: 05/01/21 09:29 Last Admin: 05/01/21 09:44 Dose: 6 mg Documented by: Gabapentin (Gabapentin 100 Mg Cap) 400 mg PO Q6HR [facility] Last Admin: 05/01/21 20:42 Dose: Not Given Documented by: Gabapentin (Gabapentin 800 Mg Tab) 800 mg PO BEDTIME [facility] Last Admin: 05/01/21 21:00 Dose: 800 mg Documented by: Gabapentin (Gabapentin 100 Mg Cap) 600 mg PO BID [facility] Gabapentin (Gabapentin 300 Mg Cap) 600 mg PO QID [facility] Last Admin: 05/02/21 09:22 Dose: 600 mg Documented by: Gabapentin (Gabapentin 300 Mg Cap) 1,200 mg PO BID [facility] Gabapentin (Gabapentin 300 Mg Cap) 600 mg PO ONETIME ONE Stop: 05/02/21 10:31 Last Admin: 05/02/21 10:46 Dose: 600 mg Documented by: Gabapentin (Gabapentin 300 Mg Cap) 1,200 mg PO BID@0700,1900 [facility] Last Admin: 05/02/21 18:01 Dose: 1,200 mg Documented by: Ceftriaxone Sodium/Dextrose 1 (gm/ Premix) 50 mls @ 100 mls/hr IV ONETIME ONE Stop: 05/01/21 09:23 Last Admin: 05/01/21 09:44 Dose: 100 mls/hr Documented by: Vancomycin HCl 1.25 gm/ Premix 250 mls @ 166.667 mls/hr IV ONETIME ONE Stop: 05/01/21 10:44 Last Admin: 05/01/21 09:48 Dose: 166.667 mls/hr Documented by: Sodium Chloride (Normal Saline) 1,000 mls @ 999 mls/hr IV .Bolus ONE Stop: 05/01/21 11:20 Last Admin: 05/01/21 10:23 Dose: 999 mls/hr Documented by: Sodium Chloride (Normal Saline) 1,000 mls @ 999 mls/hr IV .Bolus ONE Stop: 05/01/21 11:20 Last Admin: 05/01/21 10:24 Dose: 999 mls/hr Documented by: Remdesivir 200 mg/ Sodium (Chloride) 250 mls @ 250 mls/hr IV ONETIME ONE Stop: 05/01/21 21:59 Last Admin: 05/01/21 21:31 Dose: 250 mls/hr Documented by: Non-Formulary Medication (Duloxetine) 20 mg PO DAILY [facility] Last Admin: 05/01/21 20:42 Dose: Not Given Documented by: Vancomycin HCl (Pharmacy To Dose - Vancomycin) 1 dose .XX ONETIME ONE Stop: 05/01/21 08:55 Last Admin: 05/01/21 09:56 Dose: Not Given Documented by: - Exam General: Alert, Oriented, Cooperative HEENT: Mucous Membr. Moist/[place] Neck: Trachea Midline Lungs: Wheezing Cardiovascular: Regular Rate, Regular Rhythm, No Murmurs GI/Abdominal Exam: Normal Bowel Sounds, Soft, Non-Tender Extremities: No Pedal Edema - Patient Data Lab Results Last 24 hrs: Laboratory Results - last 24 hr 05/03/21 05/03/21 Range/Units 05:25 05:25 WBC 152.78 H (4.0-11.0) K/uL RBC 3.30 L (4.50-5.90) M/uL Hgb 10.7 L (13.0-17.0) g/dL Hct 32.3 L (38.0-50.0) % MCV 97.9 (80.0-98.0) fL MCH 32.4 H (27.0-32.0) pg MCHC 33.1 (31.0-37.0) g/dL RDW Std Deviation 50.6 (28.0-62.0) fl RDW Coeff of Jarod 15 (11.0-15.0) % Plt Count 72 L (150-400) K/uL MPV 11.70 (7.40-12.00) fL Add Manual Diff YES Nucleated RBC % 0.0 /100WBC Nucleated RBCs # 0 K/uL Pathologist Review Sodium 133 L (136-148) mmol/L Potassium 5.6 H (3.5-5.1) mmol/L Chloride 102 (98-107) mmol/L Carbon Dioxide 21.9 (21.0-32.0) mmol/L BUN 38 H (7.0-18.0) mg/dL Creatinine 1.3 (0.8-1.3) mg/dL Est Cr Clr Drug Dosing 42.28 mL/min Estimated GFR (MDRD) 52.0 ml/min Glucose 171 H (74-106) mg/dL Calcium 8.2 L (8.5-10.1) mg/dL Total Bilirubin 0.3 (0.2-1.0) mg/dL AST 178 H (15-37) IU/L ALT 157 H (14-63) IU/L Alkaline Phosphatase 81 (46-116) U/L Total Protein 5.4 L (6.4-8.2) g/dL Albumin 2.3 L (3.4-5.0) g/dL Globulin 3.1 (2.6-4.0) g/dL Albumin/Globulin Ratio 0.7 L (0.9-1.6) Result Diagrams: 05/03/21 05:25 05/03/21 05:25 Mejia Results Last 24 hrs: Microbiology 05/01/21 09:29 Aerobic Blood Culture - Preliminary Blood - Venous - Lab Draw NO GROWTH AFTER 2 DAYS Anaerobic Blood Culture - Final 05/01/21 09:23 Aerobic Blood Culture - Preliminary Blood - Venous NO GROWTH AFTER 2 DAYS Anaerobic Blood Culture - Preliminary NO GROWTH AFTER 2 DAYS Sepsis Event Note - Evaluation Sepsis Screening Result: Possible Sepsis Risk - Focused Exam Vital Signs: Vital Signs Temp Pulse Resp BP Pulse Ox 05/03/21 11:28 97.2 F 72 17 140/65 95 05/03/21 07:20 97.2 F 82 20 127/64 94 L 05/03/21 04:00 97.2 F 78 22 H 128/68 96 - Problem List & Annotations (1) Hypothyroid SNOMED Code(s): 39233029 Code(s): E03.9 - HYPOTHYROIDISM, UNSPECIFIED Status: Acute Current Visit: Yes (2) Acute respiratory failure due to COVID-19 SNOMED Code(s): 676490797 Code(s): U07.1 - COVID-19; J96.00 - ACUTE RESPIRATORY FAILURE, UNSP W HYPOXIA OR HYPERCAPNIA Status: Acute Current Visit: Yes (3) COVID-19 SNOMED Code(s): 077912250 Code(s): U07.1 - COVID-19 Status: Acute Current Visit: Yes (4) Neuropathy SNOMED Code(s): 191608553 Code(s): G62.9 - POLYNEUROPATHY, UNSPECIFIED Status: Acute Current Visit: Yes (5) Weakness SNOMED Code(s): 49384859 Code(s): R53.1 - WEAKNESS Status: Acute Current Visit: Yes - Problem List Review Problem List Initiated/Reviewed/Updated: Yes - My Orders Last 24 Hours: My Active Orders 05/03/21 05:25 SMEARS TO PATH (SLIDES ONLY) [REF] Routine WBC DIFFERENTIAL, MANUAL [REF] Routine 05/04/21 05:11 CBC WITH AUTO DIFF [HEME] AM CMP [COMPREHENSIVE METABOLIC PN,CMP] [CHEM] AM 05/05/21 05:11 CBC WITH AUTO DIFF [HEME] AM CMP [COMPREHENSIVE METABOLIC PN,CMP] [CHEM] AM 05/06/21 05:11 CBC WITH AUTO DIFF [HEME] AM CMP [COMPREHENSIVE METABOLIC PN,CMP] [CHEM] AM 05/07/21 05:11 CBC WITH AUTO DIFF [HEME] AM CMP [COMPREHENSIVE METABOLIC PN,CMP] [CHEM] AM - Assessment Assessment:: 1. COVID-19 pneumonia -Continue with dexamethasone 6 mg per oral route -Continue with remdesivir per IV route -Continue with duo nebulizer treatment for shortness of breath -Rohit is on board for vomiting -Supply oxygen as needed 2. Weakness -The patient has both physical therapy/occupational therapy on board 3. Hypothyroidism -Continue patient's levothyroxine 50 mcg per oral route 4. Neuropathy -Continue with gabapentin and duloxetine <Rolando Dominguez - Last Filed: 05/03/21 15:30> - Patient Data Vitals - Most Recent: Last Vital Signs Temp 97.2 F 05/03/21 11:28 Pulse 72 05/03/21 11:28 Resp 17 05/03/21 11:28 BP 140/65 05/03/21 11:28 Pulse Ox 95 05/03/21 11:28 I&O - Last 24 Hours: Intake & Output 05/03/21 05/03/21 05/03/21 06:59 14:59 22:59 Intake Total 1300 Balance 1300 Lab Results Last 24 Hours: Laboratory Results - last 24 hr 05/03/21 05/03/21 Range/Units 05:25 05:25 WBC 152.78 H (4.0-11.0) K/uL RBC 3.30 L (4.50-5.90) M/uL Hgb 10.7 L (13.0-17.0) g/dL Hct 32.3 L (38.0-50.0) % MCV 97.9 (80.0-98.0) fL MCH 32.4 H (27.0-32.0) pg MCHC 33.1 (31.0-37.0) g/dL RDW Std Deviation 50.6 (28.0-62.0) fl RDW Coeff of Jarod 15 (11.0-15.0) % Plt Count 72 L (150-400) K/uL MPV 11.70 (7.40-12.00) fL Add Manual Diff YES Nucleated RBC % 0.0 /100WBC Nucleated RBCs # 0 K/uL Pathologist Review Sodium 133 L (136-148) mmol/L Potassium 5.6 H (3.5-5.1) mmol/L Chloride 102 (98-107) mmol/L Carbon Dioxide 21.9 (21.0-32.0) mmol/L BUN 38 H (7.0-18.0) mg/dL Creatinine 1.3 (0.8-1.3) mg/dL Est Cr Clr Drug Dosing 42.28 mL/min Estimated GFR (MDRD) 52.0 ml/min Glucose 171 H (74-106) mg/dL Calcium 8.2 L (8.5-10.1) mg/dL Total Bilirubin 0.3 (0.2-1.0) mg/dL AST 178 H (15-37) IU/L ALT 157 H (14-63) IU/L Alkaline Phosphatase 81 (46-116) U/L Total Protein 5.4 L (6.4-8.2) g/dL Albumin 2.3 L (3.4-5.0) g/dL Globulin 3.1 (2.6-4.0) g/dL Albumin/Globulin Ratio 0.7 L (0.9-1.6) Mejia Results Last 24 Hours: Microbiology 05/01/21 09:29 Aerobic Blood Culture - Preliminary Blood - Venous - Lab Draw NO GROWTH AFTER 2 DAYS Anaerobic Blood Culture - Final 05/01/21 09:23 Aerobic Blood Culture - Preliminary Blood - Venous NO GROWTH AFTER 2 DAYS Anaerobic Blood Culture - Preliminary NO GROWTH AFTER 2 DAYS Med Orders - Current: Current Medications Acetaminophen (Acetaminophen 325 Mg Tab) 650 mg PO Q4H PRN PRN Reason: Pain (Mild 1-3)/fever Albuterol (Albuterol 0.083% 2.5 Mg/3 Ml Neb Soln) 2.5 mg NEB Q2H PRN PRN Reason: Shortness Of Breath/wheezing Albuterol/Ipratropium (Albuterol/Ipratropium 3.0-0.5 Mg/3 Ml Neb Soln) 3 ml NEB Q4HRRT [facility] Last Admin: 05/03/21 15:14 Dose: 3 ml Documented by: Aspirin (Aspirin 81 Mg Tab.Ec) 81 mg PO DAILY [facility] Last Admin: 05/03/21 08:39 Dose: 81 mg Documented by: Dexamethasone (Dexamethasone 4 Mg Tab) 6 mg PO DAILY [facility] Stop: 05/11/21 09:01 Last Admin: 05/03/21 08:39 Dose: 6 mg Documented by: Docusate Sodium (Docusate Sodium 100 Mg Cap) 100 mg PO BID PRN PRN Reason: Constipation Enoxaparin Sodium (Enoxaparin 40 Mg/0.4 Ml Syringe) 40 mg SUBCUT DAILY@2100 [facility] Last Admin: 05/02/21 20:36 Dose: 40 mg Documented by: Gabapentin (Gabapentin 300 Mg Cap) 600 mg PO QID [facility] Last Admin: 05/03/21 12:47 Dose: 600 mg Documented by: Remdesivir 100 mg/ Sodium (Chloride) 100 mls @ 100 mls/hr IV Q24H [facility] Stop: 05/05/21 21:59 Last Admin: 05/02/21 20:36 Dose: 100 mls/hr Documented by: Levothyroxine Sodium (Levothyroxine 50 Mcg Tab) 50 mcg PO DAILY@0700 [facility] Last Admin: 05/03/21 06:05 Dose: 50 mcg Documented by: Ondansetron HCl (Ondansetron 4 Mg Tab.Dis) 4 mg PO Q4H PRN PRN Reason: nausea, able to take PO Oxycodone HCl (Oxycodone 5 Mg Tab) 5 mg PO Q4H PRN PRN Reason: Pain (moderate 4-6) Duloxetine [address] (Capsule) 1 each PO BID [facility] Last Admin: 05/03/21 12:46 Dose: 1 each Documented by: Discontinued Medications Dexamethasone (Dexamethasone 10 Mg/Ml Sdv) 6 mg IVPUSH ONETIME ONE Stop: 05/01/21 09:29 Last Admin: 05/01/21 09:44 Dose: 6 mg Documented by: Gabapentin (Gabapentin 100 Mg Cap) 400 mg PO Q6HR [facility] Last Admin: 05/01/21 20:42 Dose: Not Given Documented by: Gabapentin (Gabapentin 800 Mg Tab) 800 mg PO BEDTIME [facility] Last Admin: 05/01/21 21:00 Dose: 800 mg Documented by: Gabapentin (Gabapentin 100 Mg Cap) 600 mg PO BID [facility] Gabapentin (Gabapentin 300 Mg Cap) 600 mg PO QID [facility] Last Admin: 05/02/21 09:22 Dose: 600 mg Documented by: Gabapentin (Gabapentin 300 Mg Cap) 1,200 mg PO BID [facility] Gabapentin (Gabapentin 300 Mg Cap) 600 mg PO ONETIME ONE Stop: 05/02/21 10:31 Last Admin: 05/02/21 10:46 Dose: 600 mg Documented by: Gabapentin (Gabapentin 300 Mg Cap) 1,200 mg PO BID@0700,1900 [facility] Last Admin: 05/02/21 18:01 Dose: 1,200 mg Documented by: Ceftriaxone Sodium/Dextrose 1 (gm/ Premix) 50 mls @ 100 mls/hr IV ONETIME ONE Stop: 05/01/21 09:23 Last Admin: 05/01/21 09:44 Dose: 100 mls/hr Documented by: Vancomycin HCl 1.25 gm/ Premix 250 mls @ 166.667 mls/hr IV ONETIME ONE Stop: 05/01/21 10:44 Last Admin: 05/01/21 09:48 Dose: 166.667 mls/hr Documented by: Sodium Chloride (Normal Saline) 1,000 mls @ 999 mls/hr IV .Bolus ONE Stop: 05/01/21 11:20 Last Admin: 05/01/21 10:23 Dose: 999 mls/hr Documented by: Sodium Chloride (Normal Saline) 1,000 mls @ 999 mls/hr IV .Bolus ONE Stop: 05/01/21 11:20 Last Admin: 05/01/21 10:24 Dose: 999 mls/hr Documented by: Remdesivir 200 mg/ Sodium (Chloride) 250 mls @ 250 mls/hr IV ONETIME ONE Stop: 05/01/21 21:59 Last Admin: 05/01/21 21:31 Dose: 250 mls/hr Documented by: Non-Formulary Medication (Duloxetine) 20 mg PO DAILY [facility] Last Admin: 05/01/21 20:42 Dose: Not Given Documented by: Vancomycin HCl (Pharmacy To Dose - Vancomycin) 1 dose .XX ONETIME ONE Stop: 05/01/21 08:55 Last Admin: 05/01/21 09:56 Dose: Not Given Documented by: - Patient Data Lab Results Last 24 hrs: Laboratory Results - last 24 hr 05/03/21 05/03/21 Range/Units 05:25 05:25 WBC 152.78 H (4.0-11.0) K/uL RBC 3.30 L (4.50-5.90) M/uL Hgb 10.7 L (13.0-17.0) g/dL Hct 32.3 L (38.0-50.0) % MCV 97.9 (80.0-98.0) fL MCH 32.4 H (27.0-32.0) pg MCHC 33.1 (31.0-37.0) g/dL RDW Std Deviation 50.6 (28.0-62.0) fl RDW Coeff of Jarod 15 (11.0-15.0) % Plt Count 72 L (150-400) K/uL MPV 11.70 (7.40-12.00) fL Add Manual Diff YES Nucleated RBC % 0.0 /100WBC Nucleated RBCs # 0 K/uL Pathologist Review Sodium 133 L (136-148) mmol/L Potassium 5.6 H (3.5-5.1) mmol/L Chloride 102 (98-107) mmol/L Carbon Dioxide 21.9 (21.0-32.0) mmol/L BUN 38 H (7.0-18.0) mg/dL Creatinine 1.3 (0.8-1.3) mg/dL Est Cr Clr Drug Dosing 42.28 mL/min Estimated GFR (MDRD) 52.0 ml/min Glucose 171 H (74-106) mg/dL Calcium 8.2 L (8.5-10.1) mg/dL Total Bilirubin 0.3 (0.2-1.0) mg/dL AST 178 H (15-37) IU/L ALT 157 H (14-63) IU/L Alkaline Phosphatase 81 (46-116) U/L Total Protein 5.4 L (6.4-8.2) g/dL Albumin 2.3 L (3.4-5.0) g/dL Globulin 3.1 (2.6-4.0) g/dL Albumin/Globulin Ratio 0.7 L (0.9-1.6) Result Diagrams: 05/03/21 05:25 05/03/21 05:25 Mejia Results Last 24 hrs: Microbiology 05/01/21 09:29 Aerobic Blood Culture - Preliminary Blood - Venous - Lab Draw NO GROWTH AFTER 2 DAYS Anaerobic Blood Culture - Final 05/01/21 09:23 Aerobic Blood Culture - Preliminary Blood - Venous NO GROWTH AFTER 2 DAYS Anaerobic Blood Culture - Preliminary NO GROWTH AFTER 2 DAYS Sepsis Event Note - Focused Exam Vital Signs: Vital Signs Temp Pulse Resp BP Pulse Ox 05/03/21 11:28 97.2 F 72 17 140/65 95 05/03/21 07:20 97.2 F 82 20 127/64 94 L 05/03/21 04:00 97.2 F 78 22 H 128/68 96 - Problem List & Annotations (1) Acute respiratory failure due to COVID-19 SNOMED Code(s): 271044754 Code(s): U07.1 - COVID-19; J96.00 - ACUTE RESPIRATORY FAILURE, UNSP W HYPOXIA OR HYPERCAPNIA Status: Acute Current Visit: Yes (2) COVID-19 SNOMED Code(s): 849013211 Code(s): U07.1 - COVID-19 Status: Acute Current Visit: Yes (3) Dehydration SNOMED Code(s): 50191010 Code(s): E86.0 - DEHYDRATION Status: Acute Current Visit: No - Problem List Review Problem List Initiated/Reviewed/Updated: Yes - My Orders Last 24 Hours: My Active Orders 05/02/21 21:00 Remdesivir 100 mg Sodium Chloride 0.9% [Normal Saline AdvBag] 100 ml IV Q24H 05/03/21 08:00 Gabapentin [Neurontin] 600 mg PO QID - Assessment Assessment:: I agree with the above assessment and plan.
[2021-05-03] MEDS: Enoxaparin 40 MG/0.4 ML Syringe SUBCUT SCH (20:31)
[2021-05-03] MEDS: REMDESIVIR 100 MG in Sodium Chloride 0.9% 100 ML IV SCH (20:31)
[2021-05-04] MEDS: Gabapentin 300 MG Cap PO SCH ×4 (00:02→17:26)
[2021-05-04] MEDS: Albuterol/Ipratropium 3.0-0.5 MG/3 ML Neb Soln NEB SCH ×6 (02:27→21:49)
[2021-05-04] MEDS: Levothyroxine 50 MCG Tab PO SCH (06:10)
[2021-05-04 08:11] LABS: CARBON DIOXIDE,CO2 22.7 mmol/L (21.0-32.0); POTASSIUM,K 5.4 mmol/L (3.5-5.1)
[2021-05-04] MEDS: Dexamethasone 4 MG Tab PO SCH (09:49)
[2021-05-04] MEDS: Aspirin 81 MG Tab.EC PO SCH (09:49)
--- NOTE | 2021-05-04 10:40 | PCM.PN ---
<Debbi Smith - Last Filed: 05/04/21 10:41> - General Info Date of Service: 05/04/21 Subjective Update: The patient is an 89-year-old male, on day 4 of service, who has a significant past medical history of CLL, a pacemaker device, neuropathy, and hypothyroidism, who was admitted to the medical floor due to COVID-19 pneumonia. Upon interview with the patient today at bedside, his cough has resolved but he continues to have shortness of breath with audible wheezing. He is currently s aturating 93 % on 2 L of oxygen. He feels that his weakness has improved but he continues to work with PT/OT. He revealed to me that on discharge, which is potentially going to be this upcoming Thursday, he will be picked up by his son Ayan who is a quality control scientist in [facility], who will arrange physical and occupational therapy for the patient on an outpatient basis. Upon discharge the patient will live with his son and his . I spoke with the patient's son Ayan today who acknowledged the fact that his Allyn is a nurse practitioner in [place] and that is who the patient will follow up with once discharged. We are waiting for PT/OT to clear the patient which will most likely happen on 05/06/2021 and if necessary, the patient will be discharged with home oxygen. For now the patient continues to use a walker when ambulating and still requires nurse assistance when using the restroom. He has no other health concerns at this time. - Review of Systems General: Reports: Weakness. Denies: Fatigue HEENT: Denies: Headaches, Sore Throat Pulmonary: Reports: Shortness of Breath. Denies: Cough, Sputum Cardiovascular: Denies: Chest Pain, Palpitations Gastrointestinal: Denies: Abdominal Pain Genitourinary: Denies: Dysuria Neurological: Reports: Difficulty Walking - Patient Data Vitals - Most Recent: Last Vital Signs Temp 97.2 F 05/04/21 07:44 Pulse 86 05/04/21 07:44 Resp 20 05/04/21 07:44 BP 141/53 H 05/04/21 07:44 Pulse Ox 94 L 05/04/21 07:44 Weight - Most Recent: 180 lb I&O - Last 24 Hours: Intake & Output 05/03/21 05/04/21 05/04/21 22:59 06:59 14:59 Intake Total 780 700 Balance 780 700 Lab Results Last 24 Hours: Laboratory Results - last 24 hr 05/04/21 05/04/21 Range/Units 07:30 07:30 WBC 161.23 H (4.0-11.0) K/uL RBC 3.44 L (4.50-5.90) M/uL Hgb 11.0 L (13.0-17.0) g/dL Hct 33.4 L (38.0-50.0) % MCV 97.1 (80.0-98.0) fL MCH 32.0 (27.0-32.0) pg MCHC 32.9 (31.0-37.0) g/dL RDW Std Deviation 49.7 (28.0-62.0) fl RDW Coeff of Jarod 15 (11.0-15.0) % Plt Count 81 L (150-400) K/uL MPV 10.40 (7.40-12.00) fL Add Manual Diff YES Neutrophils % (Manual) 7 L (48.0-80.0) % Lymphocytes % (Manual) 93 H (16.0-40.0) % Nucleated RBC % 0.0 /100WBC Absolute Seg Neuts 11.3 H (1.4-5.7) Lymphocytes # (Manual) 149.9 H (0.6-2.4) Nucleated RBCs # 0 K/uL Sodium 138 (136-148) mmol/L Potassium 5.4 H (3.5-5.1) mmol/L Chloride 105 (98-107) mmol/L Carbon Dioxide 22.7 (21.0-32.0) mmol/L BUN 42 H (7.0-18.0) mg/dL Creatinine 1.2 (0.8-1.3) mg/dL Est Cr Clr Drug Dosing 45.81 mL/min Estimated GFR (MDRD) 57.0 ml/min Glucose 160 H (74-106) mg/dL Calcium 8.2 L (8.5-10.1) mg/dL Total Bilirubin 0.6 (0.2-1.0) mg/dL AST 97 H (15-37) IU/L ALT 158 H (14-63) IU/L Alkaline Phosphatase 94 (46-116) U/L Total Protein 5.1 L (6.4-8.2) g/dL Albumin 2.5 L (3.4-5.0) g/dL Globulin 2.6 (2.6-4.0) g/dL Albumin/Globulin Ratio 1.0 (0.9-1.6) [facility] Results Last 24 Hours: Microbiology 05/01/21 09:29 Aerobic Blood Culture - Preliminary Blood - Venous - Lab Draw NO GROWTH AFTER 3 DAYS Anaerobic Blood Culture - Final 05/01/21 09:23 Aerobic Blood Culture - Preliminary Blood - Venous NO GROWTH AFTER 3 DAYS Anaerobic Blood Culture - Preliminary NO GROWTH AFTER 3 DAYS Med Orders - Current: Current Medications Acetaminophen (Acetaminophen 325 Mg Tab) 650 mg PO Q4H PRN PRN Reason: Pain (Mild 1-3)/fever Albuterol (Albuterol 0.083% 2.5 Mg/3 Ml Neb Soln) 2.5 mg NEB Q2H PRN PRN Reason: Shortness Of Breath/wheezing Albuterol/Ipratropium (Albuterol/Ipratropium 3.0-0.5 Mg/3 Ml Neb Soln) 3 ml NEB Q4HRRT [facility] Last Admin: 05/04/21 10:04 Dose: 3 ml Documented by: Aspirin (Aspirin 81 Mg Tab.Ec) 81 mg PO DAILY [facility] Last Admin: 05/04/21 09:49 Dose: 81 mg Documented by: Dexamethasone (Dexamethasone 4 Mg Tab) 6 mg PO DAILY [facility] Stop: 05/11/21 09:01 Last Admin: 05/04/21 09:49 Dose: 6 mg Documented by: Docusate Sodium (Docusate Sodium 100 Mg Cap) 100 mg PO BID PRN PRN Reason: Constipation Enoxaparin Sodium (Enoxaparin 40 Mg/0.4 Ml Syringe) 40 mg SUBCUT DAILY@2100 [facility] Last Admin: 05/03/21 20:31 Dose: 40 mg Documented by: Gabapentin (Gabapentin 300 Mg Cap) 600 mg PO QID [facility] Last Admin: 05/04/21 06:09 Dose: 600 mg Documented by: Remdesivir 100 mg/ Sodium (Chloride) 100 mls @ 100 mls/hr IV Q24H [facility] Stop: 05/05/21 21:59 Last Admin: 05/03/21 20:31 Dose: 100 mls/hr Documented by: Levothyroxine Sodium (Levothyroxine 50 Mcg Tab) 50 mcg PO DAILY@0700 [facility] Last Admin: 05/04/21 06:10 Dose: 50 mcg Documented by: Ondansetron HCl (Ondansetron 4 Mg Tab.Dis) 4 mg PO Q4H PRN PRN Reason: nausea, able to take PO Oxycodone HCl (Oxycodone 5 Mg Tab) 5 mg PO Q4H PRN PRN Reason: Pain (moderate 4-6) Duloxetine [address] (Capsule) 1 each PO BID [facility] Last Admin: 05/04/21 10:06 Dose: 1 each Documented by: Discontinued Medications Dexamethasone (Dexamethasone 10 Mg/Ml Sdv) 6 mg IVPUSH ONETIME ONE Stop: 05/01/21 09:29 Last Admin: 05/01/21 09:44 Dose: 6 mg Documented by: Gabapentin (Gabapentin 100 Mg Cap) 400 mg PO Q6HR [facility] Last Admin: 05/01/21 20:42 Dose: Not Given Documented by: Gabapentin (Gabapentin 800 Mg Tab) 800 mg PO BEDTIME [facility] Last Admin: 05/01/21 21:00 Dose: 800 mg Documented by: Gabapentin (Gabapentin 100 Mg Cap) 600 mg PO BID [facility] Gabapentin (Gabapentin 300 Mg Cap) 600 mg PO QID [facility] Last Admin: 05/02/21 09:22 Dose: 600 mg Documented by: Gabapentin (Gabapentin 300 Mg Cap) 1,200 mg PO BID [facility] Gabapentin (Gabapentin 300 Mg Cap) 600 mg PO ONETIME ONE Stop: 05/02/21 10:31 Last Admin: 05/02/21 10:46 Dose: 600 mg Documented by: Gabapentin (Gabapentin 300 Mg Cap) 1,200 mg PO BID@0700,1900 [facility] Last Admin: 05/02/21 18:01 Dose: 1,200 mg Documented by: Ceftriaxone Sodium/Dextrose 1 (gm/ Premix) 50 mls @ 100 mls/hr IV ONETIME ONE Stop: 05/01/21 09:23 Last Admin: 05/01/21 09:44 Dose: 100 mls/hr Documented by: Vancomycin HCl 1.25 gm/ Premix 250 mls @ 166.667 mls/hr IV ONETIME ONE Stop: 05/01/21 10:44 Last Admin: 05/01/21 09:48 Dose: 166.667 mls/hr Documented by: Sodium Chloride (Normal Saline) 1,000 mls @ 999 mls/hr IV .Bolus ONE Stop: 05/01/21 11:20 Last Admin: 05/01/21 10:23 Dose: 999 mls/hr Documented by: Sodium Chloride (Normal Saline) 1,000 mls @ 999 mls/hr IV .Bolus ONE Stop: 05/01/21 11:20 Last Admin: 05/01/21 10:24 Dose: 999 mls/hr Documented by: Remdesivir 200 mg/ Sodium (Chloride) 250 mls @ 250 mls/hr IV ONETIME ONE Stop: 05/01/21 21:59 Last Admin: 05/01/21 21:31 Dose: 250 mls/hr Documented by: Non-Formulary Medication (Duloxetine) 20 mg PO DAILY [facility] Last Admin: 05/01/21 20:42 Dose: Not Given Documented by: Vancomycin HCl (Pharmacy To Dose - Vancomycin) 1 dose .XX ONETIME ONE Stop: 05/01/21 08:55 Last Admin: 05/01/21 09:56 Dose: Not Given Documented by: - Exam General: Alert, Oriented, Cooperative HEENT: Mucous Membr. Moist/[place] Neck: Trachea Midline Lungs: Wheezing Cardiovascular: Regular Rate, Regular Rhythm GI/Abdominal Exam: Normal Bowel Sounds, Soft, Non-Tender Extremities: Limited Range of Motion Neurological: Normal Gait, Sensation Intact - Patient Data Lab Results Last 24 hrs: Laboratory Results - last 24 hr 05/04/21 05/04/21 Range/Units 07:30 07:30 WBC 161.23 H (4.0-11.0) K/uL RBC 3.44 L (4.50-5.90) M/uL Hgb 11.0 L (13.0-17.0) g/dL Hct 33.4 L (38.0-50.0) % MCV 97.1 (80.0-98.0) fL MCH 32.0 (27.0-32.0) pg MCHC 32.9 (31.0-37.0) g/dL RDW Std Deviation 49.7 (28.0-62.0) fl RDW Coeff of Jarod 15 (11.0-15.0) % Plt Count 81 L (150-400) K/uL MPV 10.40 (7.40-12.00) fL Add Manual Diff YES Neutrophils % (Manual) 7 L (48.0-80.0) % Lymphocytes % (Manual) 93 H (16.0-40.0) % Nucleated RBC % 0.0 /100WBC Absolute Seg Neuts 11.3 H (1.4-5.7) Lymphocytes # (Manual) 149.9 H (0.6-2.4) Nucleated RBCs # 0 K/uL Sodium 138 (136-148) mmol/L Potassium 5.4 H (3.5-5.1) mmol/L Chloride 105 (98-107) mmol/L Carbon Dioxide 22.7 (21.0-32.0) mmol/L BUN 42 H (7.0-18.0) mg/dL Creatinine 1.2 (0.8-1.3) mg/dL Est Cr Clr Drug Dosing 45.81 mL/min Estimated GFR (MDRD) 57.0 ml/min Glucose 160 H (74-106) mg/dL Calcium 8.2 L (8.5-10.1) mg/dL Total Bilirubin 0.6 (0.2-1.0) mg/dL AST 97 H (15-37) IU/L ALT 158 H (14-63) IU/L Alkaline Phosphatase 94 (46-116) U/L Total Protein 5.1 L (6.4-8.2) g/dL Albumin 2.5 L (3.4-5.0) g/dL Globulin 2.6 (2.6-4.0) g/dL Albumin/Globulin Ratio 1.0 (0.9-1.6) Result Diagrams: 05/04/21 07:30 05/04/21 07:30 [facility] Results Last 24 hrs: Microbiology 05/01/21 09:29 Aerobic Blood Culture - Preliminary Blood - Venous - Lab Draw NO GROWTH AFTER 3 DAYS Anaerobic Blood Culture - Final 05/01/21 09:23 Aerobic Blood Culture - Preliminary Blood - Venous NO GROWTH AFTER 3 DAYS Anaerobic Blood Culture - Preliminary NO GROWTH AFTER 3 DAYS Sepsis Event Note - Evaluation Sepsis Screening Result: Possible Sepsis Risk - Focused Exam Vital Signs: Vital Signs Temp Pulse Resp BP Pulse Ox 05/04/21 07:44 97.2 F 86 20 141/53 H 94 L 05/04/21 04:00 97.4 F 90 28 H 142/62 H 93 L - Problem List & Annotations (1) Hypothyroid SNOMED Code(s): 79558363 Code(s): E03.9 - HYPOTHYROIDISM, UNSPECIFIED Status: Acute Current Visit: Yes (2) Acute respiratory failure due to COVID-19 SNOMED Code(s): 785898294 Code(s): U07.1 - COVID-19; J96.00 - ACUTE RESPIRATORY FAILURE, UNSP W HYPOXIA OR HYPERCAPNIA Status: Acute Current Visit: Yes (3) COVID-19 SNOMED Code(s): 346726846 Code(s): U07.1 - COVID-19 Status: Acute Current Visit: Yes (4) Neuropathy SNOMED Code(s): 599628682 Code(s): G62.9 - POLYNEUROPATHY, UNSPECIFIED Status: Acute Current Visit: Yes (5) Weakness SNOMED Code(s): 56451658 Code(s): R53.1 - WEAKNESS Status: Acute Current Visit: Yes - Problem List Review Problem List Initiated/Reviewed/Updated: Yes - My Orders Last 24 Hours: My Active Orders 05/05/21 05:11 CBC WITH AUTO DIFF [HEME] AM CMP [COMPREHENSIVE METABOLIC PN,CMP] [CHEM] AM 05/06/21 05:11 CBC WITH AUTO DIFF [HEME] AM CMP [COMPREHENSIVE METABOLIC PN,CMP] [CHEM] AM 05/07/21 05:11 CBC WITH AUTO DIFF [HEME] AM CMP [COMPREHENSIVE METABOLIC PN,CMP] [CHEM] AM - Assessment Assessment:: 1. COVID-19 pneumonia -Continue with dexamethasone 6 mg per oral route and remdesivir per IV route -The patient is currently saturating 93% on 2 L, supply oxygen as needed -Continue with duo nebulizer treatment for shortness of breath 2. Weakness -The patient will continue to work with both physical therapy/occupational therapy -We will wait until 05/06/2021 for PT/OT to work with and clear this patient for dc 3. Hypothyroidism -Continue levothyroxine 50 mcg per oral route 4. Neuropathy -Continue with gabapentin and duloxetine Disposition: The patient will most likely be discharged on 05/06/2021 after being cleared by PT/OT. He will live with his son Ayan and his Allyn in [place], who will arrange PT/OT for him on an outpatient basis and Allyn is a nurse practitioner whom the patient will follow up with. The patient may require home oxygen via [facility] and a walking trial will be performed on 05/06/2021. <Rolando Dominguez - Last Filed: 05/04/21 13:47> - Patient Data Vitals - Most Recent: Last Vital Signs Temp 96.7 F L 05/04/21 11:00 Pulse 81 05/04/21 11:00 Resp 20 05/04/21 11:00 BP 142/66 H 05/04/21 11:00 Pulse Ox 96 05/04/21 11:00 I&O - Last 24 Hours: Intake & Output 05/03/21 05/04/21 05/04/21 22:59 06:59 14:59 Intake Total 780 700 Balance 780 700 Lab Results Last 24 Hours: Laboratory Results - last 24 hr 05/04/21 05/04/21 Range/Units 07:30 07:30 WBC 161.23 H (4.0-11.0) K/uL RBC 3.44 L (4.50-5.90) M/uL Hgb 11.0 L (13.0-17.0) g/dL Hct 33.4 L (38.0-50.0) % MCV 97.1 (80.0-98.0) fL MCH 32.0 (27.0-32.0) pg MCHC 32.9 (31.0-37.0) g/dL RDW Std Deviation 49.7 (28.0-62.0) fl RDW Coeff of Jarod 15 (11.0-15.0) % Plt Count 81 L (150-400) K/uL MPV 10.40 (7.40-12.00) fL Add Manual Diff YES Neutrophils % (Manual) 7 L (48.0-80.0) % Lymphocytes % (Manual) 93 H (16.0-40.0) % Nucleated RBC % 0.0 /100WBC Absolute Seg Neuts 11.3 H (1.4-5.7) Lymphocytes # (Manual) 149.9 H (0.6-2.4) Nucleated RBCs # 0 K/uL Sodium 138 (136-148) mmol/L Potassium 5.4 H (3.5-5.1) mmol/L Chloride 105 (98-107) mmol/L Carbon Dioxide 22.7 (21.0-32.0) mmol/L BUN 42 H (7.0-18.0) mg/dL Creatinine 1.2 (0.8-1.3) mg/dL Est Cr Clr Drug Dosing 45.81 mL/min Estimated GFR (MDRD) 57.0 ml/min Glucose 160 H (74-106) mg/dL Calcium 8.2 L (8.5-10.1) mg/dL Total Bilirubin 0.6 (0.2-1.0) mg/dL AST 97 H (15-37) IU/L ALT 158 H (14-63) IU/L Alkaline Phosphatase 94 (46-116) U/L Total Protein 5.1 L (6.4-8.2) g/dL Albumin 2.5 L (3.4-5.0) g/dL Globulin 2.6 (2.6-4.0) g/dL Albumin/Globulin Ratio 1.0 (0.9-1.6) [facility] Results Last 24 Hours: Microbiology 05/01/21 09:29 Aerobic Blood Culture - Preliminary Blood - Venous - Lab Draw NO GROWTH AFTER 3 DAYS Anaerobic Blood Culture - Final 05/01/21 09:23 Aerobic Blood Culture - Preliminary Blood - Venous NO GROWTH AFTER 3 DAYS Anaerobic Blood Culture - Preliminary NO GROWTH AFTER 3 DAYS Med Orders - Current: Current Medications Acetaminophen (Acetaminophen 325 Mg Tab) 650 mg PO Q4H PRN PRN Reason: Pain (Mild 1-3)/fever Albuterol (Albuterol 0.083% 2.5 Mg/3 Ml Neb Soln) 2.5 mg NEB Q2H PRN PRN Reason: Shortness Of Breath/wheezing Albuterol/Ipratropium (Albuterol/Ipratropium 3.0-0.5 Mg/3 Ml Neb Soln) 3 ml NEB Q4HRRT [facility] Last Admin: 05/04/21 10:04 Dose: 3 ml Documented by: Aspirin (Aspirin 81 Mg Tab.Ec) 81 mg PO DAILY [facility] Last Admin: 05/04/21 09:49 Dose: 81 mg Documented by: Dexamethasone (Dexamethasone 4 Mg Tab) 6 mg PO DAILY [facility] Stop: 05/11/21 09:01 Last Admin: 05/04/21 09:49 Dose: 6 mg Documented by: Docusate Sodium (Docusate Sodium 100 Mg Cap) 100 mg PO BID PRN PRN Reason: Constipation Enoxaparin Sodium (Enoxaparin 40 Mg/0.4 Ml Syringe) 40 mg SUBCUT DAILY@2100 [facility] Last Admin: 05/03/21 20:31 Dose: 40 mg Documented by: Gabapentin (Gabapentin 300 Mg Cap) 600 mg PO QID [facility] Last Admin: 05/04/21 12:05 Dose: 600 mg Documented by: Remdesivir 100 mg/ Sodium (Chloride) 100 mls @ 100 mls/hr IV Q24H [facility] Stop: 05/05/21 21:59 Last Admin: 05/03/21 20:31 Dose: 100 mls/hr Documented by: Levothyroxine Sodium (Levothyroxine 50 Mcg Tab) 50 mcg PO DAILY@0700 [facility] Last Admin: 05/04/21 06:10 Dose: 50 mcg Documented by: Ondansetron HCl (Ondansetron 4 Mg Tab.Dis) 4 mg PO Q4H PRN PRN Reason: nausea, able to take PO Oxycodone HCl (Oxycodone 5 Mg Tab) 5 mg PO Q4H PRN PRN Reason: Pain (moderate 4-6) Duloxetine [address] (Capsule) 1 each PO BID [facility] Last Admin: 05/04/21 10:06 Dose: 1 each Documented by: Discontinued Medications Dexamethasone (Dexamethasone 10 Mg/Ml Sdv) 6 mg IVPUSH ONETIME ONE Stop: 05/01/21 09:29 Last Admin: 05/01/21 09:44 Dose: 6 mg Documented by: Gabapentin (Gabapentin 100 Mg Cap) 400 mg PO Q6HR [facility] Last Admin: 05/01/21 20:42 Dose: Not Given Documented by: Gabapentin (Gabapentin 800 Mg Tab) 800 mg PO BEDTIME [facility] Last Admin: 05/01/21 21:00 Dose: 800 mg Documented by: Gabapentin (Gabapentin 100 Mg Cap) 600 mg PO BID [facility] Gabapentin (Gabapentin 300 Mg Cap) 600 mg PO QID [facility] Last Admin: 05/02/21 09:22 Dose: 600 mg Documented by: Gabapentin (Gabapentin 300 Mg Cap) 1,200 mg PO BID [facility] Gabapentin (Gabapentin 300 Mg Cap) 600 mg PO ONETIME ONE Stop: 05/02/21 10:31 Last Admin: 05/02/21 10:46 Dose: 600 mg Documented by: Gabapentin (Gabapentin 300 Mg Cap) 1,200 mg PO BID@0700,1900 [facility] Last Admin: 05/02/21 18:01 Dose: 1,200 mg Documented by: Ceftriaxone Sodium/Dextrose 1 (gm/ Premix) 50 mls @ 100 mls/hr IV ONETIME ONE Stop: 05/01/21 09:23 Last Admin: 05/01/21 09:44 Dose: 100 mls/hr Documented by: Vancomycin HCl 1.25 gm/ Premix 250 mls @ 166.667 mls/hr IV ONETIME ONE Stop: 05/01/21 10:44 Last Admin: 05/01/21 09:48 Dose: 166.667 mls/hr Documented by: Sodium Chloride (Normal Saline) 1,000 mls @ 999 mls/hr IV .Bolus ONE Stop: 05/01/21 11:20 Last Admin: 05/01/21 10:23 Dose: 999 mls/hr Documented by: Sodium Chloride (Normal Saline) 1,000 mls @ 999 mls/hr IV .Bolus ONE Stop: 05/01/21 11:20 Last Admin: 05/01/21 10:24 Dose: 999 mls/hr Documented by: Remdesivir 200 mg/ Sodium (Chloride) 250 mls @ 250 mls/hr IV ONETIME ONE Stop: 05/01/21 21:59 Last Admin: 05/01/21 21:31 Dose: 250 mls/hr Documented by: Non-Formulary Medication (Duloxetine) 20 mg PO DAILY [facility] Last Admin: 05/01/21 20:42 Dose: Not Given Documented by: Vancomycin HCl (Pharmacy To Dose - Vancomycin) 1 dose .XX ONETIME ONE Stop: 05/01/21 08:55 Last Admin: 05/01/21 09:56 Dose: Not Given Documented by: - Patient Data Lab Results Last 24 hrs: Laboratory Results - last 24 hr 05/04/21 05/04/21 Range/Units 07:30 07:30 WBC 161.23 H (4.0-11.0) K/uL RBC 3.44 L (4.50-5.90) M/uL Hgb 11.0 L (13.0-17.0) g/dL Hct 33.4 L (38.0-50.0) % MCV 97.1 (80.0-98.0) fL MCH 32.0 (27.0-32.0) pg MCHC 32.9 (31.0-37.0) g/dL RDW Std Deviation 49.7 (28.0-62.0) fl RDW Coeff of Jarod 15 (11.0-15.0) % Plt Count 81 L (150-400) K/uL MPV 10.40 (7.40-12.00) fL Add Manual Diff YES Neutrophils % (Manual) 7 L (48.0-80.0) % Lymphocytes % (Manual) 93 H (16.0-40.0) % Nucleated RBC % 0.0 /100WBC Absolute Seg Neuts 11.3 H (1.4-5.7) Lymphocytes # (Manual) 149.9 H (0.6-2.4) Nucleated RBCs # 0 K/uL Sodium 138 (136-148) mmol/L Potassium 5.4 H (3.5-5.1) mmol/L Chloride 105 (98-107) mmol/L Carbon Dioxide 22.7 (21.0-32.0) mmol/L BUN 42 H (7.0-18.0) mg/dL Creatinine 1.2 (0.8-1.3) mg/dL Est Cr Clr Drug Dosing 45.81 mL/min Estimated GFR (MDRD) 57.0 ml/min Glucose 160 H (74-106) mg/dL Calcium 8.2 L (8.5-10.1) mg/dL Total Bilirubin 0.6 (0.2-1.0) mg/dL AST 97 H (15-37) IU/L ALT 158 H (14-63) IU/L Alkaline Phosphatase 94 (46-116) U/L Total Protein 5.1 L (6.4-8.2) g/dL Albumin 2.5 L (3.4-5.0) g/dL Globulin 2.6 (2.6-4.0) g/dL Albumin/Globulin Ratio 1.0 (0.9-1.6) Result Diagrams: 05/04/21 07:30 05/04/21 07:30 [facility] Results Last 24 hrs: Microbiology 05/01/21 09:29 Aerobic Blood Culture - Preliminary Blood - Venous - Lab Draw NO GROWTH AFTER 3 DAYS Anaerobic Blood Culture - Final 05/01/21 09:23 Aerobic Blood Culture - Preliminary Blood - Venous NO GROWTH AFTER 3 DAYS Anaerobic Blood Culture - Preliminary NO GROWTH AFTER 3 DAYS Sepsis Event Note - Focused Exam Vital Signs: Vital Signs Temp Pulse Resp BP Pulse Ox 05/04/21 11:00 96.7 F L 81 20 142/66 H 96 05/04/21 07:44 97.2 F 86 20 141/53 H 94 L 05/04/21 04:00 97.4 F 90 28 H 142/62 H 93 L - Problem List & Annotations (1) Acute respiratory failure due to COVID-19 SNOMED Code(s): 847117409 Code(s): U07.1 - COVID-19; J96.00 - ACUTE RESPIRATORY FAILURE, UNSP W HYPOXIA OR HYPERCAPNIA Status: Acute Current Visit: Yes (2) COVID-19 SNOMED Code(s): 677138688 Code(s): U07.1 - COVID-19 Status: Acute Current Visit: Yes (3) Dehydration SNOMED Code(s): 70430552 Code(s): E86.0 - DEHYDRATION Status: Acute Current Visit: No (4) CLL (chronic lymphocytic leukemia) SNOMED Code(s): 95212318 Code(s): C91.10 - CHRONIC LYMPHOCYTIC LEUK OF B-CELL TYPE NOT ACHIEVE REMIS Status: Acute Current Visit: Yes - Problem List Review Problem List Initiated/Reviewed/Updated: Yes - Assessment Assessment:: I agree with the above assessment and plan. DC home with son and daughter in law on 05/06.
[2021-05-04] MEDS: Enoxaparin 40 MG/0.4 ML Syringe SUBCUT SCH (21:49)
[2021-05-04] MEDS: REMDESIVIR 100 MG in Sodium Chloride 0.9% 100 ML IV SCH (21:52)
[2021-05-05] MEDS: Gabapentin 300 MG Cap PO SCH ×4 (00:22→17:34)
[2021-05-05] MEDS: Albuterol/Ipratropium 3.0-0.5 MG/3 ML Neb Soln NEB SCH ×6 (02:14→21:44)
[2021-05-05] MEDS: Levothyroxine 50 MCG Tab PO SCH (06:06)
[2021-05-05 07:47] LABS: BLOOD UREA NITROGEN,BUN 36 mg/dL (7.0-18.0); CHLORIDE,CL 103 mmol/L (98-107); GLUCOSE RANDOM 139 mg/dL (74-106); POTASSIUM,K 5.3 mmol/L (3.5-5.1); SODIUM,NA 136 mmol/L (136-148)
[2021-05-05] MEDS: Dexamethasone 4 MG Tab PO SCH (08:25)
[2021-05-05] MEDS: Aspirin 81 MG Tab.EC PO SCH (08:25)
--- NOTE | 2021-05-05 12:20 | PCM.PN ---
- General Info Date of Service: 05/05/21 - Review of Systems Systems Review Comment:: feeling better, plans on being discharge tomorrow. - Patient Data Vitals - Most Recent: Last Vital Signs Temp 36.3 C 05/05/21 08:00 Pulse 82 05/05/21 08:00 Resp 18 05/05/21 08:00 BP 129/55 L 05/05/21 08:00 Pulse Ox 93 L 05/05/21 08:00 Weight - Most Recent: 81.647 kg I&O - Last 24 Hours: Intake & Output 05/04/21 05/05/21 05/05/21 22:59 06:59 14:59 Intake Total 850 450 Balance 850 450 Lab Results Last 24 Hours: Laboratory Results - last 24 hr 05/05/21 05/05/21 Range/Units 06:50 06:50 WBC 142.26 H (4.0-11.0) K/uL RBC 3.42 L (4.50-5.90) M/uL Hgb 10.8 L (13.0-17.0) g/dL Hct 33.6 L (38.0-50.0) % MCV 98.2 H (80.0-98.0) fL MCH 31.6 (27.0-32.0) pg MCHC 32.1 (31.0-37.0) g/dL RDW Std Deviation 50.9 (28.0-62.0) fl RDW Coeff of Jarod 15 (11.0-15.0) % Plt Count 99 L (150-400) K/uL MPV 9.90 (7.40-12.00) fL Add Manual Diff YES Neutrophils % (Manual) 5 L (48.0-80.0) % Lymphocytes % (Manual) 92 H (16.0-40.0) % Monocytes % (Manual) 3 (0.0-15.0) % Nucleated RBC % 0.0 /100WBC Absolute Seg Neuts 7.1 H (1.4-5.7) Lymphocytes # (Manual) 130.9 H (0.6-2.4) Monocytes # (Manual) 4.3 H (0.0-0.8) Nucleated RBCs # 0 K/uL Sodium 136 (136-148) mmol/L Potassium 5.3 H (3.5-5.1) mmol/L Chloride 103 (98-107) mmol/L Carbon Dioxide 25.0 (21.0-32.0) mmol/L BUN 36 H (7.0-18.0) mg/dL Creatinine 1.1 (0.8-1.3) mg/dL Est Cr Clr Drug Dosing 49.97 mL/min Estimated GFR (MDRD) > 60.0 ml/min Glucose 139 H (74-106) mg/dL Calcium 8.4 L (8.5-10.1) mg/dL Total Bilirubin 0.8 (0.2-1.0) mg/dL AST 65 H (15-37) IU/L ALT 160 H (14-63) IU/L Alkaline Phosphatase 93 (46-116) U/L Total Protein 5.8 L (6.4-8.2) g/dL Albumin 2.7 L (3.4-5.0) g/dL Globulin 3.1 (2.6-4.0) g/dL Albumin/Globulin Ratio 0.9 (0.9-1.6) Mejia Results Last 24 Hours: Microbiology 05/01/21 09:29 Aerobic Blood Culture - Preliminary Blood - Venous - Lab Draw NO GROWTH AFTER 4 DAYS Anaerobic Blood Culture - Final 05/01/21 09:23 Aerobic Blood Culture - Preliminary Blood - Venous NO GROWTH AFTER 4 DAYS Anaerobic Blood Culture - Preliminary NO GROWTH AFTER 4 DAYS Med Orders - Current: Current Medications Acetaminophen (Acetaminophen 325 Mg Tab) 650 mg PO Q4H PRN PRN Reason: Pain (Mild 1-3)/fever Albuterol (Albuterol 0.083% 2.5 Mg/3 Ml Neb Soln) 2.5 mg NEB Q2H PRN PRN Reason: Shortness Of Breath/wheezing Albuterol/Ipratropium (Albuterol/Ipratropium 3.0-0.5 Mg/3 Ml Neb Soln) 3 ml NEB Q4HRRT [facility] Last Admin: 05/05/21 09:36 Dose: 3 ml Documented by: Aspirin (Aspirin 81 Mg Tab.Ec) 81 mg PO DAILY [facility] Last Admin: 05/05/21 08:25 Dose: 81 mg Documented by: Dexamethasone (Dexamethasone 4 Mg Tab) 6 mg PO DAILY [facility] Stop: 05/11/21 09:01 Last Admin: 05/05/21 08:25 Dose: 6 mg Documented by: Docusate Sodium (Docusate Sodium 100 Mg Cap) 100 mg PO BID PRN PRN Reason: Constipation Enoxaparin Sodium (Enoxaparin 40 Mg/0.4 Ml Syringe) 40 mg SUBCUT DAILY@2100 [facility] Last Admin: 05/04/21 21:49 Dose: 40 mg Documented by: Gabapentin (Gabapentin 300 Mg Cap) 600 mg PO QID [facility] Last Admin: 05/05/21 11:30 Dose: 600 mg Documented by: Remdesivir 100 mg/ Sodium (Chloride) 100 mls @ 100 mls/hr IV Q24H [facility] Stop: 05/05/21 21:59 Last Admin: 05/04/21 21:52 Dose: 100 mls/hr Documented by: Levothyroxine Sodium (Levothyroxine 50 Mcg Tab) 50 mcg PO DAILY@0700 [facility] Last Admin: 05/05/21 06:06 Dose: 50 mcg Documented by: Ondansetron HCl (Ondansetron 4 Mg Tab.Dis) 4 mg PO Q4H PRN PRN Reason: nausea, able to take PO Oxycodone HCl (Oxycodone 5 Mg Tab) 5 mg PO Q4H PRN PRN Reason: Pain (moderate 4-6) Duloxetine [address] (Capsule) 1 each PO BID [facility] Last Admin: 05/05/21 08:25 Dose: 1 each Documented by: Discontinued Medications Dexamethasone (Dexamethasone 10 Mg/Ml Sdv) 6 mg IVPUSH ONETIME ONE Stop: 05/01/21 09:29 Last Admin: 05/01/21 09:44 Dose: 6 mg Documented by: Gabapentin (Gabapentin 100 Mg Cap) 400 mg PO Q6HR [facility] Last Admin: 05/01/21 20:42 Dose: Not Given Documented by: Gabapentin (Gabapentin 800 Mg Tab) 800 mg PO BEDTIME [facility] Last Admin: 05/01/21 21:00 Dose: 800 mg Documented by: Gabapentin (Gabapentin 100 Mg Cap) 600 mg PO BID DAVID Gabapentin (Gabapentin 300 Mg Cap) 600 mg PO QID [facility] Last Admin: 05/02/21 09:22 Dose: 600 mg Documented by: Gabapentin (Gabapentin 300 Mg Cap) 1,200 mg PO BID [facility] Gabapentin (Gabapentin 300 Mg Cap) 600 mg PO ONETIME ONE Stop: 05/02/21 10:31 Last Admin: 05/02/21 10:46 Dose: 600 mg Documented by: Gabapentin (Gabapentin 300 Mg Cap) 1,200 mg PO BID@0700,1900 [facility] Last Admin: 05/02/21 18:01 Dose: 1,200 mg Documented by: Ceftriaxone Sodium/Dextrose 1 (gm/ Premix) 50 mls @ 100 mls/hr IV ONETIME ONE Stop: 05/01/21 09:23 Last Admin: 05/01/21 09:44 Dose: 100 mls/hr Documented by: Vancomycin HCl 1.25 gm/ Premix 250 mls @ 166.667 mls/hr IV ONETIME ONE Stop: 05/01/21 10:44 Last Admin: 05/01/21 09:48 Dose: 166.667 mls/hr Documented by: Sodium Chloride (Normal Saline) 1,000 mls @ 999 mls/hr IV .Bolus ONE Stop: 05/01/21 11:20 Last Admin: 05/01/21 10:23 Dose: 999 mls/hr Documented by: Sodium Chloride (Normal Saline) 1,000 mls @ 999 mls/hr IV .Bolus ONE Stop: 05/01/21 11:20 Last Admin: 05/01/21 10:24 Dose: 999 mls/hr Documented by: Remdesivir 200 mg/ Sodium (Chloride) 250 mls @ 250 mls/hr IV ONETIME ONE Stop: 05/01/21 21:59 Last Admin: 05/01/21 21:31 Dose: 250 mls/hr Documented by: Non-Formulary Medication (Duloxetine) 20 mg PO DAILY [facility] Last Admin: 05/01/21 20:42 Dose: Not Given Documented by: Vancomycin HCl (Pharmacy To Dose - Vancomycin) 1 dose .XX ONETIME ONE Stop: 05/01/21 08:55 Last Admin: 05/01/21 09:56 Dose: Not Given Documented by: - Exam General: Alert, Oriented Neck: Supple Lungs: Clear to Auscultation, Normal Respiratory Effort GI/Abdominal Exam: Soft, Non-Tender, No Distention Extremities: Non-Tender, No Pedal Edema Skin: Warm, Dry, Intact Neurological: No New Focal Deficit - Patient Data Lab Results Last 24 hrs: Laboratory Results - last 24 hr 05/05/21 05/05/21 Range/Units 06:50 06:50 WBC 142.26 H (4.0-11.0) K/uL RBC 3.42 L (4.50-5.90) M/uL Hgb 10.8 L (13.0-17.0) g/dL Hct 33.6 L (38.0-50.0) % MCV 98.2 H (80.0-98.0) fL MCH 31.6 (27.0-32.0) pg MCHC 32.1 (31.0-37.0) g/dL RDW Std Deviation 50.9 (28.0-62.0) fl RDW Coeff of Jarod 15 (11.0-15.0) % Plt Count 99 L (150-400) K/uL MPV 9.90 (7.40-12.00) fL Add Manual Diff YES Neutrophils % (Manual) 5 L (48.0-80.0) % Lymphocytes % (Manual) 92 H (16.0-40.0) % Monocytes % (Manual) 3 (0.0-15.0) % Nucleated RBC % 0.0 /100WBC Absolute Seg Neuts 7.1 H (1.4-5.7) Lymphocytes # (Manual) 130.9 H (0.6-2.4) Monocytes # (Manual) 4.3 H (0.0-0.8) Nucleated RBCs # 0 K/uL Sodium 136 (136-148) mmol/L Potassium 5.3 H (3.5-5.1) mmol/L Chloride 103 (98-107) mmol/L Carbon Dioxide 25.0 (21.0-32.0) mmol/L BUN 36 H (7.0-18.0) mg/dL Creatinine 1.1 (0.8-1.3) mg/dL Est Cr Clr Drug Dosing 49.97 mL/min Estimated GFR (MDRD) > 60.0 ml/min Glucose 139 H (74-106) mg/dL Calcium 8.4 L (8.5-10.1) mg/dL Total Bilirubin 0.8 (0.2-1.0) mg/dL AST 65 H (15-37) IU/L ALT 160 H (14-63) IU/L Alkaline Phosphatase 93 (46-116) U/L Total Protein 5.8 L (6.4-8.2) g/dL Albumin 2.7 L (3.4-5.0) g/dL Globulin 3.1 (2.6-4.0) g/dL Albumin/Globulin Ratio 0.9 (0.9-1.6) Result Diagrams: 05/05/21 06:50 05/05/21 06:50 Mejia Results Last 24 hrs: Microbiology 05/01/21 09:29 Aerobic Blood Culture - Preliminary Blood - Venous - Lab Draw NO GROWTH AFTER 4 DAYS Anaerobic Blood Culture - Final 05/01/21 09:23 Aerobic Blood Culture - Preliminary Blood - Venous NO GROWTH AFTER 4 DAYS Anaerobic Blood Culture - Preliminary NO GROWTH AFTER 4 DAYS Sepsis Event Note - Evaluation Sepsis Screening Result: Possible Sepsis Risk - Focused Exam Vital Signs: Vital Signs Temp Pulse Resp BP Pulse Ox 05/05/21 08:00 36.3 C 82 18 129/55 L 93 L 05/05/21 03:50 36.3 C 84 23 H 133/62 91 L 05/05/21 00:20 36.2 C 83 20 133/54 L 93 L - Problem List Review Problem List Initiated/Reviewed/Updated: Yes - Plan Plan:: 89 y/o M admitted with COVID 19 infection continue Dexamethasone and Remdesivir. incentive spirometry duonebs prn Positive blood culture likely a contaminant. Will hold off on Abx and monitor clinically. Await repeat blood cultures. CLL out pt follow up as per oncology DVT prophylaxis SQ lovenox. Dispo: likely discharge home tomorrow.
[2021-05-05] MEDS: Enoxaparin 40 MG/0.4 ML Syringe SUBCUT SCH (21:43)
[2021-05-05] MEDS: REMDESIVIR 100 MG in Sodium Chloride 0.9% 100 ML IV SCH (21:46)
[2021-05-06] MEDS: Gabapentin 300 MG Cap PO SCH ×4 (00:32→15:27)
[2021-05-06] MEDS: Albuterol/Ipratropium 3.0-0.5 MG/3 ML Neb Soln NEB SCH ×5 (01:51→17:10)
[2021-05-06] MEDS: Levothyroxine 50 MCG Tab PO SCH (07:01)
[2021-05-06] MEDS: Aspirin 81 MG Tab.EC PO SCH (08:55)
[2021-05-06] MEDS: Dexamethasone 4 MG Tab PO SCH (08:55)
--- NOTE | 2021-05-06 14:04 | PCM.DCSUM1 ---
Discharge Summary - Hospital Course Free Text/Narrative:: The patient is an 89-year-old male, on day 6 of service, who has a significant past medical history of CLL, a pacemaker device, neuropathy, and hypothyroidism, who was admitted to the medical floor due to COVID-19 pneumonia. During the patient's hospital course he was treated with different COVID-19 protocol medications including remdesivir per IV route, dexamethasone per oral route, duo nebulizer treatments, and Zofran for vomiting. He also exhibited weakness during his hospital course and worked with both PT/OT on a continual basis until he was cleared for discharge. On an outpatient basis the patient will be living with his son and [id number] in [facility]. While there he will resume PT/OT on outpatient basis. For his past medical history of hypothyroidism and neuropathy the patient was given levothyroxine, gabapentin, and duloxetine while in the hospital. The patient also has a past medical history of CLL and will follow up with his oncologist on an outpatient basis. To completely resolve his COVID-19 pneumonia, the patient will be sent home with a prescription of oral dexamethasone, and will also be given albuterol inhalers. He will also be sent home with a home oxygen apparatus via [employer]. The patient has been advised to return to the hospital if he has increasing respiratory difficulty, shortness of breath, chest pain, and/or palpitations. He has also been educated on being compliant with his medication and taking them at scheduled times. The patient is to follow-up with his new PCP in 1 to 2 weeks time. The patient is now stable and can be discharged home safely. - Discharge Data Discharge Date: 05/06/21 Discharge Disposition: Home, Self-Care 01 Condition: Stable - Referral to Home Health Primary Care Physician: PCP None - Discharge Diagnosis/Problem(s) (1) Hypothyroid SNOMED Code(s): 16122585 ICD Code: E03.9 - HYPOTHYROIDISM, UNSPECIFIED Status: Acute Current Visit: Yes (2) Acute respiratory failure due to COVID-19 SNOMED Code(s): 120015560 ICD Code: U07.1 - COVID-19; J96.00 - ACUTE RESPIRATORY FAILURE, UNSP W HYPOXIA OR HYPERCAPNIA Status: Acute Current Visit: Yes (3) COVID-19 SNOMED Code(s): 679180041 ICD Code: U07.1 - COVID-19 Status: Acute Current Visit: Yes (4) Neuropathy SNOMED Code(s): 441987772 ICD Code: G62.9 - POLYNEUROPATHY, UNSPECIFIED Status: Acute Current Visit: Yes (5) Weakness SNOMED Code(s): 00456387 ICD Code: R53.1 - WEAKNESS Status: Acute Current Visit: Yes - Patient Summary/Data Consults: Consultations 05/01/21 13:57 OT Evaluation and Treatment [CONS] Routine PT Evaluation and Treatment [CONS] Routine - Patient Instructions Diet: Regular Diet as Tolerated Activity: As Tolerated Showering/Bathing: May Shower Other/Special Instructions: -Return to the hospital if you have increasing shortness of breath, respiratory difficulty, chest pain, palpitations. -Take your medication at scheduled times. -Follow-up with your PCP - Discharge Plan Prescriptions/Med Rec: Albuterol Sulfate [Albuterol Sulfate Hfa] 8.5 gm IH Q4H #1 hfa.aer.ad dexAMETHasone [Dexamethasone] 6 mg PO DAILY 4 Days #7 tablet Home Medications: Home Meds Levothyroxine Sodium [Levo-T] 50 mcg PO QAM 10/29/17 [History] Simvastatin [Zocor] 40 mg PO QAM 10/29/17 [History] Gabapentin [Neurontin] 600 mg PO Q6H 12/03/17 [History] DULoxetine [Cymbalta] 20 mg PO BID 10/15/20 [History] Aspirin [Aspirin EC] 81 mg PO DAILY 05/01/21 [History] Albuterol Sulfate [Albuterol Sulfate Hfa] 8.5 gm IH Q4H #1 hfa.aer.ad 05/06/21 [Rx] dexAMETHasone [Dexamethasone] 6 mg PO DAILY 4 Days #7 tablet 05/06/21 [Rx] Patient Handouts: Albuterol inhalation powder, COVID-19 Frequently Asked Questions, COVID-19, Home Oxygen Use, Adult, COVID-19: How to Protect Yourself and Others - CDC, Dexamethasone tablets Referrals: Pj Sanders MD [Ordering Only Provider] - 05/16/21 12:30 pm (Please arrive 15 minutes early for your appiontment with your ID and wearing a face covering.) - Discharge Summary/Plan Comment DC Time >30 min.: Yes Total # of Minutes for Discharge Time: 35 minutes - Review of Systems General: Reports: Weakness. Denies: Fever, Fatigue HEENT: Denies: Headaches, Sore Throat Pulmonary: Denies: Shortness of Breath, Cough Cardiovascular: Denies: Chest Pain, Palpitations Gastrointestinal: Denies: Abdominal Pain Genitourinary: Denies: Dysuria - Patient Data Vitals - Most Recent: Last Vital Signs Temp 97.6 F 05/06/21 03:20 Pulse 73 05/06/21 08:00 Resp 20 05/06/21 08:00 BP 135/61 05/06/21 03:20 Pulse Ox 91 L 05/06/21 08:00 Weight - Most Recent: 180 lb I&O - Last 24 hours: Intake & Output 05/05/21 05/06/21 05/06/21 22:59 06:59 14:59 Intake Total 1500 700 Balance 1500 700 Lab Results - Last 24 hrs: Laboratory Results - last 24 hr 05/03/21 05/03/21 Range/Units 05:25 05:25 Neutrophils % (Manual) 14 % Band Neuts % (Manual) 2 % Lymphocytes % (Manual) 83 % Monocytes % (Manual) 1 % Eosinophils % (Manual) 0 % Basophils % (Manual) 0 % RBC/WBC/PLT Morphology Abnormal (Normal) Platelet Estimate Mod Dec Target Cells 1+ /hpf Ovalocytes 2+ /hpf Kristi Cells 1+ /hpf RBC Fragments 1+ /hpf Smear Path Review PATH RPT TOMAS Results - Last 24 hrs: Microbiology 05/01/21 09:29 Aerobic Blood Culture - Final Blood - Venous - Lab Draw NO GROWTH AFTER 5 DAYS Anaerobic Blood Culture - Final 05/01/21 09:23 Aerobic Blood Culture - Final Blood - Venous NO GROWTH AFTER 5 DAYS Anaerobic Blood Culture - Final NO GROWTH AFTER 5 DAYS Med Orders - Current: Current Medications Acetaminophen (Acetaminophen 325 Mg Tab) 650 mg PO Q4H PRN PRN Reason: Pain (Mild 1-3)/fever Albuterol (Albuterol 0.083% 2.5 Mg/3 Ml Neb Soln) 2.5 mg NEB Q2H PRN PRN Reason: Shortness Of Breath/wheezing Albuterol/Ipratropium (Albuterol/Ipratropium 3.0-0.5 Mg/3 Ml Neb Soln) 3 ml NEB Q4HRRT [facility] Last Admin: 05/06/21 09:03 Dose: 3 ml Documented by: Aspirin (Aspirin 81 Mg Tab.Ec) 81 mg PO DAILY [facility] Last Admin: 05/06/21 08:55 Dose: 81 mg Documented by: Dexamethasone (Dexamethasone 4 Mg Tab) 6 mg PO DAILY [facility] Stop: 05/11/21 09:01 Last Admin: 05/06/21 08:55 Dose: 6 mg Documented by: Docusate Sodium (Docusate Sodium 100 Mg Cap) 100 mg PO BID PRN PRN Reason: Constipation Enoxaparin Sodium (Enoxaparin 40 Mg/0.4 Ml Syringe) 40 mg SUBCUT DAILY@2100 [facility] Last Admin: 05/05/21 21:43 Dose: 40 mg Documented by: Gabapentin (Gabapentin 300 Mg Cap) 600 mg PO QID [facility] Last Admin: 05/06/21 09:28 Dose: 600 mg Documented by: Levothyroxine Sodium (Levothyroxine 50 Mcg Tab) 50 mcg PO DAILY@0700 [facility] Last Admin: 05/06/21 07:01 Dose: 50 mcg Documented by: Ondansetron HCl (Ondansetron 4 Mg Tab.Dis) 4 mg PO Q4H PRN PRN Reason: nausea, able to take PO Oxycodone HCl (Oxycodone 5 Mg Tab) 5 mg PO Q4H PRN PRN Reason: Pain (moderate 4-6) Duloxetine [address] (Capsule) 1 each PO BID [facility] Last Admin: 05/06/21 08:55 Dose: 1 each Documented by: Discontinued Medications Dexamethasone (Dexamethasone 10 Mg/Ml Sdv) 6 mg IVPUSH ONETIME ONE Stop: 05/01/21 09:29 Last Admin: 05/01/21 09:44 Dose: 6 mg Documented by: Gabapentin (Gabapentin 100 Mg Cap) 400 mg PO Q6HR [facility] Last Admin: 05/01/21 20:42 Dose: Not Given Documented by: Gabapentin (Gabapentin 800 Mg Tab) 800 mg PO BEDTIME [facility] Last Admin: 05/01/21 21:00 Dose: 800 mg Documented by: Gabapentin (Gabapentin 100 Mg Cap) 600 mg PO BID [facility] Gabapentin (Gabapentin 300 Mg Cap) 600 mg PO QID [facility] Last Admin: 05/02/21 09:22 Dose: 600 mg Documented by: Gabapentin (Gabapentin 300 Mg Cap) 1,200 mg PO BID [facility] Gabapentin (Gabapentin 300 Mg Cap) 600 mg PO ONETIME ONE Stop: 05/02/21 10:31 Last Admin: 05/02/21 10:46 Dose: 600 mg Documented by: Gabapentin (Gabapentin 300 Mg Cap) 1,200 mg PO BID@0700,1900 [facility] Last Admin: 05/02/21 18:01 Dose: 1,200 mg Documented by: Ceftriaxone Sodium/Dextrose 1 (gm/ Premix) 50 mls @ 100 mls/hr IV ONETIME ONE Stop: 05/01/21 09:23 Last Admin: 05/01/21 09:44 Dose: 100 mls/hr Documented by: Vancomycin HCl 1.25 gm/ Premix 250 mls @ 166.667 mls/hr IV ONETIME ONE Stop: 05/01/21 10:44 Last Admin: 05/01/21 09:48 Dose: 166.667 mls/hr Documented by: Sodium Chloride (Normal Saline) 1,000 mls @ 999 mls/hr IV .Bolus ONE Stop: 05/01/21 11:20 Last Admin: 05/01/21 10:23 Dose: 999 mls/hr Documented by: Sodium Chloride (Normal Saline) 1,000 mls @ 999 mls/hr IV .Bolus ONE Stop: 05/01/21 11:20 Last Admin: 05/01/21 10:24 Dose: 999 mls/hr Documented by: Remdesivir 200 mg/ Sodium (Chloride) 250 mls @ 250 mls/hr IV ONETIME ONE Stop: 05/01/21 21:59 Last Admin: 05/01/21 21:31 Dose: 250 mls/hr Documented by: Remdesivir 100 mg/ Sodium (Chloride) 100 mls @ 100 mls/hr IV Q24H [facility] Stop: 05/05/21 21:59 Last Admin: 05/05/21 21:46 Dose: 100 mls/hr Documented by: Non-Formulary Medication (Duloxetine) 20 mg PO DAILY [facility] Last Admin: 05/01/21 20:42 Dose: Not Given Documented by: Vancomycin HCl (Pharmacy To Dose - Vancomycin) 1 dose .XX ONETIME ONE Stop: 05/01/21 08:55 Last Admin: 05/01/21 09:56 Dose: Not Given Documented by: - Exam General: Reports: Alert, Oriented, Cooperative HEENT: Reports: Mucous Membr. Moist/[place] Neck: Reports: Trachea Midline Lungs: Reports: Clear to Auscultation, Normal Respiratory Effort Cardiovascular: Reports: Regular Rate, Regular Rhythm GI/Abdominal Exam: Normal Bowel Sounds, Soft, Non-Tender Extremities: No Pedal Edema
== END 2021-05-06 14:50 | disposition home or self-care (01) | DRG 177 ==
LOC: MW.ED 08:47 → MW.MS 10:48
PROVIDERS: ADMIT Hospitalist; ATTEND Hospitalist
PROC: XW033E5 Introduction of Remdesivir Anti-infective into Peripheral Vein, Percutaneous Approach, New Technology Group 5 (ICD-10-PCS; principal; 2021-05-01)
PROC: 3E0333Z Introduction of Anti-inflammatory into Peripheral Vein, Percutaneous Approach (ICD-10-PCS; 2021-05-01)
PROC: 3E0DX3Z Introduction of Anti-inflammatory into Mouth and Pharynx, External Approach (ICD-10-PCS; 2021-05-02)
DX: U07.1 COVID-19 (principal); J12.82 Pneumonia due to coronavirus disease 2019; J96.00 Acute respiratory failure, unspecified whether with hypoxia or hypercapnia; H91.93 Unspecified hearing loss, bilateral; E78.00 Pure hypercholesterolemia, unspecified; R32 Unspecified urinary incontinence; G62.9 Polyneuropathy, unspecified; E03.9 Hypothyroidism, unspecified; D64.9 Anemia, unspecified; E86.0 Dehydration; C91.10 Chronic lymphocytic leukemia of B-cell type not having achieved remission; Z79.82 Long term (current) use of aspirin; Z85.46 Personal history of malignant neoplasm of prostate; Z85.51 Personal history of malignant neoplasm of bladder; Z86.73 Personal history of transient ischemic attack (TIA), and cerebral infarction without residual deficits; Z79.890 Hormone replacement therapy; Z79.899 Other long term (current) drug therapy
CPT/HCPCS: 36415; 71045; 80053; 82248; 83605; 85025; 86140; 87040 ×2; 96365; 96375; 99285; J0696; J1100; J3370; J7030 ×2; 80048; 81001; 85379; 94640; 97162-GP; 97530-GP; A9270-GY; J1650; J7050; J7620-GY; J8540